=== PATIENT | female | born 1940 | race Caucasian/White ===

== ENCOUNTER 2018-04-06 11:34 | Outpatient (CLI) | payer MEDICARE | END 2018-04-06 23:59 | disposition home or self-care (01) | LOC: CT 11:34 | PROVIDERS: ATTEND Internal Medicine Interventional Cardiology | DX: K44.9 Diaphragmatic hernia without obstruction or gangrene (principal); E04.1 Nontoxic single thyroid nodule; I70.0 Atherosclerosis of aorta; I25.10 Atherosclerotic heart disease of native coronary artery without angina pectoris; M47.814 Spondylosis without myelopathy or radiculopathy, thoracic region; M19.012 Primary osteoarthritis, left shoulder; M19.011 Primary osteoarthritis, right shoulder | CPT/HCPCS: 71250-TC ==

== ENCOUNTER 2018-07-05 14:05 | Emergency (ER) | payer MEDICARE ==
[~2018-07-05] VITALS: Ht 172.7 cm; Wt 88.9 kg
[2018-07-05] MEDS ORDERED: IV NS 0.9% 1,000 ML BAG IV ONE (14:30)
[2018-07-05] MEDS ORDERED: MORPHINE SULFATE INJ 2 MG/ML DISP.SYRIN IV ONE (14:30)
[2018-07-05] MEDS ORDERED: ONDANSETRON HCL/PF 4 MG/2 ML VIAL IVP ONE (14:30)
--- NOTE | 2018-07-05 14:30 | NUR ---
patient presented to the ER c/o abd pain and back pain sent by PMD. On room air, breathing evenly and unlabored. Connected to the monitor and pulse ox. Kept comfortable, will continue to monitor accordingly.
[2018-07-05] MEDS ORDERED: MORPHINE SULFATE INJ 4 MG/ML DISP.SYRIN ONE (14:37)
[2018-07-05] MEDS ORDERED: ONDANSETRON HCL/PF 4 MG/2 ML VIAL ONE (14:37)
[2018-07-05 14:41] LABS: BASOPHILS % (AUTO) 0.4 % (0.0-2.0); EOSINOPHILS % (AUTO) 1.7 % (0.0-6.0); HEMATOCRIT 30 % (33-45); HEMOGLOBIN 10.1 g/dL (11.5-14.8); LYMPHOCYTES # (AUTO) 0.4 /CMM (0.8-4.8); LYMPHOCYTES % (AUTO) 9.1 % (20.0-44.0); MEAN CORPUSCULAR HGB CONC 33 g/dl (31.0-36.0); MEAN CORPUSCULAR VOLUME 94 fL (82-100); MONOCYTES # (AUTO) 0.3 /CMM (0.1-1.30); MONOCYTES % (AUTO) 6.9 % (2.0-12.0); NEUTROPHILS # (AUTO) 3.2 /CMM (1.8-8.9); NEUTROPHILS % (AUTO) 81.9 % (43.0-81.0); PLATELET COUNT (AUTO) 244 /CMM (150-450); RED BLOOD CELL COUNT(AUTO) 3.21 MIL/uL (4.0-5.2); WHITE BLOOD COUNT (AUTO) 3.9 K/uL (4.3-11.0)
[2018-07-05 14:51] LABS: CALCIUM, SERUM 9.1 mg/dL (8.5-10.1); CARBON DIOXIDE 27 mmol/L (21-32); CHLORIDE 99 mmol/L (98-107); CREATININE 1.3 mg/dL (0.6-1.3); GLUCOSE 143 mg/dL (74-106); POTASSIUM 5.6 mmol/L (3.5-5.1); SODIUM SERUM 132 mmol/L (136-145); UREA NITROGEN, BLOOD 41 mg/dL (7-18)
[2018-07-05 14:56] LABS: ALANINE AMINOTRANSFERASE 32 U/L (12-78); ALBUMIN 3.7 g/dL (3.4-5.0); ALKALINE PHOSPHATASE 125 U/L (46-116); ASPARTATE AMINOTRANSFERASE 26 U/L (15-37); BILIRUBIN,DIRECT 0.1 mg/dL (0.0-0.2); BILIRUBIN,TOTAL 0.4 mg/dL (0.2-1.0); LIPASE 73 U/L (73-393); TOTAL PROTEIN, SERUM 9.1 g/dL (6.4-8.2)
[2018-07-05 16:06] LABS: BILIRUBIN,URINE Negative (NEGATIVE); BLOOD, URINE Negative Ery/uL (NEGATIVE); COLOR,URINE Yellow (YELLOW); KETONES,URINE Trace (NEGATIVE); LEUKOCYTE ESTERASE ,URINE Small (NEGATIVE); NITRITE, URINE Positive (NEGATIVE); PROTEIN,URINE 30 mg/dl (NEGATIVE); UGLUCOSE Negative (NEGATIVE); UROBILINOGEN,URINE 0.2 EU/dL (0.2)
[2018-07-05 16:19] LABS: APPEARANCE,URINE HAZY (CLEAR); RBC,URINE 0-2 /HPF (0-2)
[2018-07-05 16:20] LABS: BACTERIA,URINE Moderate /HPF (None Seen); SQUAMOUS EPITHELIAL CELL,UR Few /HPF (None Seen); WBC,URINE 21-50 /HPF (0-3)
[2018-07-05] MEDS ORDERED: CIPROFLOXACIN HCL 250 MG TABLET PO ONE (16:30)
[2018-07-05] MEDS ORDERED: CIPROFLOXACIN HCL 500 MG TABLET ONE (16:44)
[2018-07-05 17:11] VITALS: BP 135/88
--- NOTE | 2018-07-05 17:12 | NUR ---
Patient discharged to home in stable condition. Written and verbal after care instructions given. Patient verbalizes understanding of instruction.IV removed. Catheter intact and site benign. Pressure and 4x4 applied to site. No bleeding noted.
--- NOTE | 2018-07-08 12:46 | NUR ---
CALL BACK FROM Araceli GARCIA, UTI SX IMPROVED AND CIPRO PRESCRIBED APROPRIATE BASED ON C/S UA
== END 2018-07-05 17:12 | disposition home or self-care (01) ==
LOC: ER 14:09
DX: N39.0 Urinary tract infection, site not specified (principal); M54.5 Low back pain; E87.1 Hypo-osmolality and hyponatremia; E87.5 Hyperkalemia; G89.29 Other chronic pain; E11.9 Type 2 diabetes mellitus without complications; Z96.651 Presence of right artificial knee joint; Z95.4 Presence of other heart-valve replacement; Z60.2 Problems related to living alone
CPT/HCPCS: 36415; 74176; 80048; 80076; 81001; 83690; 84484; 85025; 85730; 87077; 87086; 87186; 96374; 96375; 99284; J2270; J2405; J7030; 81000-TC

== ENCOUNTER 2018-10-14 14:08 | Emergency (ER) | payer MEDICARE ==
[~2018-10-14] VITALS: Ht 165.1 cm; Wt 64.4 kg
--- NOTE | 2018-10-14 14:40 | NUR ---
PT BIB SELF SENT BY DR. NASSAR FOR EVALUATION OF R L Q ABD PAIN. PT IS AAOX3, NOT IN RESPIRATORY DISTRESS, HOOKED TO MONITOR, KEPT RESTED AND COMFORTABLE, WILL CONTINUE TO MONITOR.
--- NOTE | 2018-10-14 14:49 | NUR ---
IV LINE ESTABLISHED, BLOOD DRAWNED AND SENT TO LAB.
--- NOTE | 2018-10-14 14:55 | NUR ---
SEEN AND EXMAINED BY .
[2018-10-14] MEDS ORDERED: IV NS 0.9% 500 ML BAG IV ONE (15:00)
[2018-10-14 15:02] LABS: BASOPHILS % (AUTO) 0.5 % (0.0-2.0); HEMATOCRIT 31 % (33-45); HEMOGLOBIN 10.1 g/dL (11.5-14.8); LYMPHOCYTES # (AUTO) 0.9 /CMM (0.8-4.8); LYMPHOCYTES % (AUTO) 20.3 % (20.0-44.0); MEAN CORPUSCULAR HGB CONC 33 g/dl (31.0-36.0); MEAN CORPUSCULAR VOLUME 96 fL (82-100); MONOCYTES # (AUTO) 0.3 /CMM (0.1-1.30); MONOCYTES % (AUTO) 7.4 % (2.0-12.0); NEUTROPHILS % (AUTO) 67.8 % (43.0-81.0); PLATELET COUNT (AUTO) 229 /CMM (150-450); RED BLOOD CELL COUNT(AUTO) 3.17 MIL/uL (4.0-5.2); WHITE BLOOD COUNT (AUTO) 4.5 K/uL (4.3-11.0)
[2018-10-14 15:04] LABS: CALCIUM, SERUM 8.9 mg/dL (8.5-10.1); CARBON DIOXIDE 23 mmol/L (21-32); CHLORIDE 101 mmol/L (98-107); CREATININE 1.3 mg/dL (0.6-1.3); GLUCOSE 159 mg/dL (74-106); SODIUM SERUM 134 mmol/L (136-145); UREA NITROGEN, BLOOD 30 mg/dL (7-18)
[2018-10-14 15:10] LABS: ALANINE AMINOTRANSFERASE 21 U/L (12-78); ALBUMIN 3.7 g/dL (3.4-5.0); ALKALINE PHOSPHATASE 95 U/L (46-116); ASPARTATE AMINOTRANSFERASE 18 U/L (15-37); BILIRUBIN,DIRECT 0.1 mg/dL (0.0-0.2); BILIRUBIN,TOTAL 0.2 mg/dL (0.2-1.0); LIPASE 82 U/L (73-393); TOTAL PROTEIN, SERUM 8.9 g/dL (6.4-8.2)
--- NOTE | 2018-10-14 15:34 | NUR ---
URINE SPECIMEN COLLECTED AND SENT TO LAB.
[2018-10-14] MEDS ORDERED: FERR325T23 PO (15:39)
[2018-10-14] MEDS ORDERED: FURO20TA4 PO (15:39)
[2018-10-14] MEDS ORDERED: ASPI-1169 PO (15:39)
[2018-10-14] MEDS ORDERED: SERT100T12 PO (15:39)
[2018-10-14] MEDS ORDERED: METF-442 PO (15:39)
[2018-10-14] MEDS ORDERED: OXYC-121 PO (15:39)
[2018-10-14] MEDS ORDERED: CARV3.122 PO (15:39)
[2018-10-14] MEDS ORDERED: LOSA50TA39 PO (15:39)
[2018-10-14] MEDS ORDERED: ATOR10TA PO (15:39)
[2018-10-14] MEDS ORDERED: RANI150T8 PO (15:39)
[2018-10-14] MEDS ORDERED: MULT-1200 PO (15:39)
[2018-10-14] MEDS ORDERED: MORPHINE SULFATE INJ 2 MG/ML DISP.SYRIN ONE (15:50)
[2018-10-14] MEDS ORDERED: ONDANSETRON HCL/PF 4 MG/2 ML VIAL ONE (15:50)
--- NOTE | 2018-10-14 15:54 | NUR ---
PT IS WHEELED TO CT SCAN VIA [facility]
[2018-10-14] MEDS ORDERED: ONDANSETRON HCL/PF 4 MG/2 ML VIAL IVP ONE (16:00)
[2018-10-14] MEDS ORDERED: MORPHINE SULFATE INJ 2 MG/ML DISP.SYRIN IV ONE (16:00)
[2018-10-14 16:03] LABS: APPEARANCE,URINE CLOUDY (CLEAR); BILIRUBIN,URINE NEGATIVE (NEGATIVE); BLOOD, URINE 2+ Ery/uL (NEGATIVE); COLOR,URINE YELLOW (YELLOW); KETONES,URINE NEGATIVE (NEGATIVE); LEUKOCYTE ESTERASE ,URINE 3+ (NEGATIVE); NITRITE, URINE POSITIVE (NEGATIVE); PH,URINE 5.5 (5.0-8.0); PROTEIN,URINE TRACE mg/dl (NEGATIVE); UGLUCOSE NEGATIVE (NEGATIVE); UROBILINOGEN,URINE 0.2 EU/dL (0.2)
[2018-10-14] MEDS ORDERED: IOHEXOL-300 100 ML VIAL IV ONE (16:04)
[2018-10-14] MEDS ORDERED: IV NS 0.9% 250 ML IV ONE (16:04)
[2018-10-14] MEDS ORDERED: CT SWABBABLE VALVE TRANS SET 1 EA INFUS.SET MC ONE (16:04)
[2018-10-14 16:12] LABS: BACTERIA,URINE 1+ /HPF (None Seen); RBC,URINE 21-50 /HPF (0-2); SQUAMOUS EPITHELIAL CELL,UR Few /HPF (None Seen); WBC,URINE TOO NUMEROUS TO COUN /HPF (0-3)
[2018-10-14] MEDS ORDERED: CEFTRIAXONE 1GM BAG (ER ONLY) 1 GM/50 ML PIGGYBACK IV ONE (16:30)
[2018-10-14] MEDS ORDERED: CEFTRIAXONE 1GM BAG (ER ONLY) 50 ML IV ONE (16:31)
--- NOTE | 2018-10-14 17:49 | NUR ---
IV removed. Catheter intact and site benign. Pressure and 4x4 applied to site. No bleeding noted. Patient discharged to home in stable condition. Written and verbal after care instructions given. Patient verbalizes understanding of instruction.
[2018-10-14 17:50] VITALS: BP 118/74
== END 2018-10-14 17:52 | disposition home or self-care (01) ==
LOC: ER 14:09
DX: N39.0 Urinary tract infection, site not specified (principal); E11.9 Type 2 diabetes mellitus without complications; Z98.890 Other specified postprocedural states; Z90.49 Acquired absence of other specified parts of digestive tract; Z95.818 Presence of other cardiac implants and grafts; Z60.2 Problems related to living alone; Z79.82 Long term (current) use of aspirin; Z79.84 Long term (current) use of oral hypoglycemic drugs; Z79.899 Other long term (current) drug therapy
CPT/HCPCS: 36415; 74177; 80048; 80076; 81001; 83690; 85025; 87077; 87086; 87186; 96365; 96375; 99284; J0696; J2270; J2405; J7040; J7050; Q9967; 81000-TC

== ENCOUNTER 2019-03-15 14:19 | Inpatient (IN) | payer MEDICARE ==
[~2019-03-15] VITALS: Ht 172.7 cm; Wt 88.5 kg
[~2019-03-15 14:19] MED LIST: ASPI-1169 PO; ATOR10TA PO; CARV3.122 PO; FERR325T23 PO; FURO20TA4 PO; LOSA50TA39 PO; METF-442 PO; MULT-1200 PO; OXYC-121 PO; RANI150T8 PO; SERT100T12 PO
[2019-03-15] MEDS ORDERED: IPRATROPIUM NEB FS 0.5 MG/2.5 ML AMPUL.NEB ONE (15:28)
[2019-03-15] MEDS ORDERED: ALBUTEROL FS 2.5 MG/3 ML VIAL.NEB ONE (15:28)
[2019-03-15] MEDS ORDERED: IPRATROPIUM NEB FS 0.5 MG/2.5 ML AMPUL.NEB NEB ONE (15:30)
[2019-03-15] MEDS ORDERED: ALBUTEROL FS 2.5 MG/3 ML VIAL.NEB NEB ONE (15:30)
[2019-03-15 15:48] LABS: BASOPHILS % (AUTO) 0.3 % (0.0-2.0); EOSINOPHILS % (AUTO) 0.1 % (0.0-6.0); HEMATOCRIT 31 % (33-45); HEMOGLOBIN 10.1 g/dL (11.5-14.8); LYMPHOCYTES # (AUTO) 0.2 /CMM (0.8-4.8); LYMPHOCYTES % (AUTO) 16.2 % (20.0-44.0); MEAN CORPUSCULAR HGB CONC 33 g/dl (31.0-36.0); MEAN CORPUSCULAR VOLUME 93 fL (82-100); MONOCYTES # (AUTO) 0.1 /CMM (0.1-1.30); MONOCYTES % (AUTO) 4.2 % (2.0-12.0); NEUTROPHILS % (AUTO) 79.2 % (43.0-81.0); PLATELET COUNT (AUTO) 118 /CMM (150-450); RED BLOOD CELL COUNT(AUTO) 3.33 MIL/uL (4.0-5.2)
[2019-03-15 15:50] LABS: WHITE BLOOD COUNT (AUTO) 1.3 K/uL (4.3-11.0)
[2019-03-15 15:59] LABS: CALCIUM, SERUM 8.6 mg/dL (8.5-10.1); CARBON DIOXIDE 23 mmol/L (21-32); CHLORIDE 95 mmol/L (98-107); CREATININE 2.3 mg/dL (0.6-1.3); GLUCOSE 153 mg/dL (74-106); SODIUM SERUM 130 mmol/L (136-145); UREA NITROGEN, BLOOD 56 mg/dL (7-18)
[2019-03-15] MEDS ORDERED: IV NS 0.9% 1,000 ML BAG IV ONE (16:00)
[2019-03-15 16:04] LABS: ALANINE AMINOTRANSFERASE 32 U/L (12-78); ALBUMIN 3.2 g/dL (3.4-5.0); ALKALINE PHOSPHATASE 77 U/L (46-116); ASPARTATE AMINOTRANSFERASE 37 U/L (15-37); BILIRUBIN,DIRECT 0.1 mg/dL (0.0-0.2); BILIRUBIN,TOTAL 0.3 mg/dL (0.2-1.0); TOTAL PROTEIN, SERUM 8.5 g/dL (6.4-8.2)
[2019-03-15 16:21] LABS: APPEARANCE,URINE Clear (CLEAR); BILIRUBIN,URINE Negative (NEGATIVE); BLOOD, URINE Negative Ery/uL (NEGATIVE); COLOR,URINE Yellow (YELLOW); KETONES,URINE Negative (NEGATIVE); LEUKOCYTE ESTERASE ,URINE Negative (NEGATIVE); NITRITE, URINE Negative (NEGATIVE); PROTEIN,URINE 100 mg/dl (NEGATIVE); UGLUCOSE Negative (NEGATIVE); UROBILINOGEN,URINE 0.2 EU/dL (0.2)
[2019-03-15] MEDS ORDERED: POLY15DR40 EACHEYE (16:27)
[2019-03-15] MEDS ORDERED: VANCOMYCIN 1 GM in IV D5W 250 ML IV ONE (16:30)
[2019-03-15] MEDS ORDERED: MEROPENEM 1,000 MG in IV NS 0.9% 100 ML IV ONE (16:30)
[2019-03-15 16:54] LABS: BAND % (MANUAL) 20 % (0.0-5.0); LYMPHOCYTES % (MANUAL) 20 % (16-48); MONOCYTES % (MANUAL) 6 % (0-11.0); NEUTROPHILS % (MANUAL) 54 (42-76)
[2019-03-15 16:56] LABS: BACTERIA,URINE Few /HPF (None Seen); COARSE GRANULAR CASTS,URINE Moderate /LPF (None Seen); RBC,URINE 0-2 /HPF (0-2); SQUAMOUS EPITHELIAL CELL,UR Moderate /HPF (None Seen); URINE AMORPHOUS URATE Moderate /HPF (None Seen); WBC,URINE 0-2 /HPF (0-3)
[2019-03-15 16:58] LABS: ABG BASE EXCESS -6.9 mmol/L; ABG OXYGEN SATURATION 90.8 % (92.0-98.5); ABG PCO2 36.1 mmHg (35.0-45.0); ABG PH 7.325 (7.350-7.450); ABG PO2 67.4 mmHg (75.0-100.0); AaDO2 205.2 mmHg; COHb 0.6 % (0.5-1.5); MetHb 0.3 % (0.0-1.5); SITE, ABG Right Radial; VENT MODE, BG NASAL CANNULA
[2019-03-15] MEDS ORDERED: ASPIRIN 81 MG TAB.CHEW PO ONE (17:00)
--- NOTE | 2019-03-15 17:00 | NUR ---
PANEL ON-CALL PAGED
[2019-03-15] MEDS ORDERED: ASPIRIN 81 MG TAB.CHEW ONE (17:08)
--- NOTE | 2019-03-15 17:45 | NUR ---
ROOM 107, BED READY AT 1800HOURS
--- NOTE | 2019-03-15 18:10 | NUR ---
report given to maday cherry for jarred pt will be transported to 1st floor
[2019-03-15 18:29] LABS: CALCIUM, SERUM 7.3 mg/dL (8.5-10.1); CARBON DIOXIDE 21 mmol/L (21-32); CHLORIDE 98 mmol/L (98-107); CREATININE 2.3 mg/dL (0.6-1.3); GLUCOSE 181 mg/dL (74-106); MAGNESIUM 1.7 mg/dL (1.8-2.4); PHOSPHORUS 4.1 mg/dL (2.5-4.9); POTASSIUM 3.9 mmol/L (3.5-5.1); SODIUM SERUM 131 mmol/L (136-145); UREA NITROGEN, BLOOD 52 mg/dL (7-18)
[2019-03-15] MEDS ORDERED: MAG HYDROX/AL HYDROX/SIMETH 30 ML UDC PO PRN (18:30)
[2019-03-15] MEDS ORDERED: ALBUTEROL FS 2.5 MG/0.5 ML VIAL.NEB NEB PRN (18:30)
[2019-03-15] MEDS ORDERED: POLYVINYL ALCOHOL 15 ML BOTTLE OP PRN (18:30)
[2019-03-15] MEDS ORDERED: Z GUARD REMEDY 2 OZ OINT TP PRN (18:30)
[2019-03-15] MEDS ORDERED: DEXTROSE 50%-WATER 50 ML DISP.SYRIN IV PRN (18:30)
[2019-03-15] MEDS ORDERED: ONDANSETRON HCL/PF 4 MG/2 ML VIAL IVP PRN (18:30)
[2019-03-15] MEDS ORDERED: MAGNESIUM HYDROXIDE 30 ML UDC PO PRN (18:30)
[2019-03-15] MEDS ORDERED: oxyCODONE/APAP (5/325 MG) 1 UDTAB TABLET PO PRN (18:30)
[2019-03-15 18:46] LABS: BASOPHILS % (AUTO) 0.2 % (0.0-2.0); EOSINOPHILS % (AUTO) 0.1 % (0.0-6.0); HEMATOCRIT 29 % (33-45); HEMOGLOBIN 9.6 g/dL (11.5-14.8); LYMPHOCYTES # (AUTO) 0.1 /CMM (0.8-4.8); LYMPHOCYTES % (AUTO) 14.6 % (20.0-44.0); MEAN CORPUSCULAR HGB CONC 33 g/dl (31.0-36.0); MEAN CORPUSCULAR VOLUME 93 fL (82-100); MONOCYTES % (AUTO) 3.9 % (2.0-12.0); NEUTROPHILS # (AUTO) 0.8 /CMM (1.8-8.9); NEUTROPHILS % (AUTO) 81.2 % (43.0-81.0); PLATELET COUNT (AUTO) 114 /CMM (150-450); RED BLOOD CELL COUNT(AUTO) 3.07 MIL/uL (4.0-5.2)
[2019-03-15 18:52] VITALS: BP 130/66
--- NOTE | 2019-03-15 18:54 | NUR ---
patient received from er awake alert,vss ,kept comfortable,endorsed to kira cherry for continuity of care and admission.
--- NOTE | 2019-03-15 19:00 | NUR ---
RN OPENING NOTES: PATIENT IN BED, AWAKE, AND VERBALLY RESPONSIVE. AAOX4. NO RESPIRATORY DISTRESS. NO C/O PAIN AT THIS TIME. (L) AC G20 INTACT, PATENT, AND FLUSHING WELL. ON DIRECTOR PAID MEDIA, SR WITH PVCs. SAFETY PRECAUTIONS IMPLEMENTED. BED LOCKED, ALARM ON, AND IN LOWEST POSITION. CALL LIGHT PLACED WITHIN REACH. WILL CONT. TO MONITOR FOR CHANGES.
[2019-03-15] MEDS: IV NS 0.9% 1,000 ML IV SCH (19:51)
[2019-03-15 20:00] VITALS: BP 95/55
[2019-03-15] MEDS: PIPERACILLIN /TAZOBACTAM 3.375 G in IV D5W 100 ML IV SCH (20:58)
[2019-03-15] MEDS: HYDROCODONE/APAP 5/325MG 1 EACH TABLET PO PRN (20:59)
[2019-03-15] MEDS: BLOOD SUGAR DIAGNOSTIC 1 EACH STRIP VI SCH (21:39)
[2019-03-15] MEDS: INSULIN REGULAR, HUMAN 100 UNIT/ML 3 ML VIAL SQ PRN (21:42)
--- NOTE | 2019-03-15 22:30 | NUR ---
RN NOTE: JACLYN MUNIZ NP. PATIENT WISHES TO BE FULL CODE. MAGNESIUM LEVEL 1.7. AQUATIC INSTRUCTOR MADE AWARE. PER AQUATIC INSTRUCTOR, REPLACE MAGNESIUM TOMORROW MORNING IN AM SHIFT. ALSO NOTIFIED THAT PATIENT NOTED WITH PRODUCTIVE COUGH. NEW ORDER FOR ROBITUSSIN PRN RECEIVED. PATIENT IN STABLE CONDITION AT THIS TIME. NO CONGESTION OR SOB. WILL CONT. TO MONITOR.
[2019-03-16] VITALS: BP 103/55
[2019-03-16] MEDS: GUAIFENESIN/D-METHORPHAN HB 5 ML UDC PO PRN ×2 (00:49→16:57)
--- NOTE | 2019-03-16 02:15 | NUR ---
RN NOTE: PATIENT C/O SOB AND DIFFICULTY BREATHING. ON O2 AT 2LPM VIA NC. O2 SAT 86-88%. TITRATED UP TO 3LPM VIA NC. NOTED EFFECTIVE. O2 SAT IMPROVED TO 90-92%. RT AT BEDSIDE. WILL CONT. TO MONITOR FOR CHANGES.
--- NOTE | 2019-03-16 02:25 | NUR ---
RN NOTE: SPOKE WITH CRISTY AP OPERATOR WITH NEW ORDER FOR BREATHING TX ATC. NOTED AND CARRIED OUT. RT MADE AWARE.
[2019-03-16] MEDS ORDERED: ALBUTEROL FS 2.5 MG/0.5 ML VIAL.NEB NEB SCH (03:00)
[2019-03-16] MEDS ORDERED: IPRATROPIUM NEB FS 0.5 MG/2.5 ML AMPUL.NEB NEB SCH (03:00)
[2019-03-16] MEDS: ALBUTEROL FS 2.5 MG/0.5 ML VIAL.NEB NEB SCH ×6 (03:58→23:30)
[2019-03-16] MEDS: IPRATROPIUM NEB FS 0.5 MG/2.5 ML AMPUL.NEB NEB SCH ×6 (03:58→23:30)
[2019-03-16 04:00] VITALS: BP 117/86
[2019-03-16] MEDS: PIPERACILLIN /TAZOBACTAM 3.375 G in IV D5W 100 ML IV SCH ×3 (04:47→20:30)
[2019-03-16] MEDS: HYDROCODONE/APAP 5/325MG 1 EACH TABLET PO PRN ×3 (04:56→09:48)
--- NOTE | 2019-03-16 07:00 | NUR ---
RN CLOSING NOTES: PATIENT IN BED, AWAKE, AND VERBALLY RESPONSIVE. NO RESPIRATORY DISTRESS. REMAINS ON O2 AT 5 LPM VIA NC, TOLERATING WELL. O2 SAT 90-93%. CRISTY VICTOR MADE AWARE. ON NEUTROPENIC PRECAUTION. SAFETY PRECAUTIONS HAVE BEEN IMPLEMENTED. BED LOCKED, ALARM ON, AND IN LOWEST POSITION. CALL LIGHT PLACED WITHIN REACH. ENDORSED TO AM SHIFT NURSE FOR CONTINUITY OF CARE. Addendum: 03/16/19 at 0729 by MICKIE EISENBERG RN MAGNESIUM LEVEL AND LAB RESULTS ENDORSED TO AM SHIFT.
--- NOTE | 2019-03-16 07:40 | NUR ---
ELEVATOR SERVICEMAN NOTES RECEIVED PATIENT IN BED A/OX4 AWAKE. ON 5 L O2 92%, SINUS RHYTHM 74. DENIES ANY PAIN. CALL LIGHT WITHIN REACH, BED ALARM ON, BED AT THE LOWEST POSITION LOCKED, WILL CONTINUE TO MONITOR PATIENT.
[2019-03-16] MEDS: BLOOD SUGAR DIAGNOSTIC 1 EACH STRIP VI SCH ×4 (07:49→22:03)
[2019-03-16 08:00] VITALS: BP 93/46
--- NOTE | 2019-03-16 08:21 | NUR ---
RAIL FILLER NOTES PATIENT`S BLOOD GLUCOSE LEVEL 129 MG/DL NO INSULIN GIVEN PER SLIDING SCALE.
[2019-03-16] MEDS: SERTRALINE HCL 50 MG TABLET PO SCH ×2 (08:37→16:57)
[2019-03-16] MEDS: ASPIRIN 81 MG TAB.CHEW PO SCH (08:37)
[2019-03-16 08:38] LABS: BASOPHILS % (AUTO) 0.1 % (0.0-2.0); HEMATOCRIT 28 % (33-45); LYMPHOCYTES # (AUTO) 0.2 /CMM (0.8-4.8); LYMPHOCYTES % (AUTO) 12.7 % (20.0-44.0); MEAN CORPUSCULAR HGB CONC 32 g/dl (31.0-36.0); MEAN CORPUSCULAR VOLUME 93 fL (82-100); MONOCYTES # (AUTO) 0.1 /CMM (0.1-1.30); MONOCYTES % (AUTO) 2.7 % (2.0-12.0); NEUTROPHILS # (AUTO) 1.6 /CMM (1.8-8.9); NEUTROPHILS % (AUTO) 84.5 % (43.0-81.0); PLATELET COUNT (AUTO) 110 /CMM (150-450)
[2019-03-16] MEDS: IV NS 0.9% 1,000 ML IV SCH ×2 (08:38→20:31)
[2019-03-16 08:41] LABS: WHITE BLOOD COUNT (AUTO) 1.9 K/uL (4.3-11.0)
[2019-03-16 08:47] LABS: CARBON DIOXIDE 20 mmol/L (21-32); CHLORIDE 96 mmol/L (98-107); CREATININE 2.9 mg/dL (0.6-1.3); GLUCOSE 136 mg/dL (74-106); MAGNESIUM 1.7 mg/dL (1.8-2.4); PHOSPHORUS 4.5 mg/dL (2.5-4.9); POTASSIUM 4.8 mmol/L (3.5-5.1); SODIUM SERUM 128 mmol/L (136-145); UREA NITROGEN, BLOOD 59 mg/dL (7-18)
[2019-03-16 09:02] LABS: BAND % (MANUAL) 17 % (0.0-5.0); LYMPHOCYTES % (MANUAL) 10 % (16-48); MONOCYTES % (MANUAL) 8 % (0-11.0); NEUTROPHILS % (MANUAL) 65 (42-76)
--- NOTE | 2019-03-16 09:09 | NUR ---
SPLITTER MACHINE NOTES CRITICAL LAB VALUE WBC 1.[address] BHUMI MD AWARE.
[2019-03-16 12:00] VITALS: BP 121/52
[2019-03-16] MEDS: INSULIN REGULAR, HUMAN 100 UNIT/ML 3 ML VIAL SQ PRN ×2 (12:38→18:09)
--- NOTE | 2019-03-16 12:48 | NUR ---
QUALITY HEAD NOTES RECEIVED A CALL FROM [facility] FOR GRAM POSITIVE COCCYX IN CHAINS
[2019-03-16] MEDS ORDERED: FEE PK DOSING 1 MIN EA MC ONE (15:20)
[2019-03-16 16:00] VITALS: BP 121/52
--- NOTE | 2019-03-16 19:10 | NUR ---
KJ RN OPENING NOTE RECEIVED PATIENT IN BED RESTRING WITH HOB ELEVATED. FAMILY AT BEDSIDE AT THIS TIME. IN NOT APPARENT DISTRESS NOTED. ON O2 5 L VIA NC. A&O X4. ABLE TO MAKE NEEDS KNOWN. WILL CONTINUE TO MONITOR.
[2019-03-16 20:00] VITALS: BP 123/56
--- NOTE | 2019-03-16 22:54 | NUR ---
Met with patient, she is alert and pleasant. States she lives locally with her son and daughter in law in the first floor apartment. States she ambulates with a walker around household and utilize wheelchair for community mobility. Available DME: walker and wheelchair. [facility] but she cannot recall the name of the agency. Her pcx is Dr. Juan Jimenez in [place]. She plan to return home with family providing ride. Addendum: 03/16/19 at 2255 by JONI LUONG RN Amended: Links added.
[2019-03-17] VITALS: BP 100/54
[2019-03-17] MEDS: ALBUTEROL FS 2.5 MG/0.5 ML VIAL.NEB NEB SCH ×6 (03:08→23:30)
[2019-03-17] MEDS: IPRATROPIUM NEB FS 0.5 MG/2.5 ML AMPUL.NEB NEB SCH ×6 (03:09→23:30)
[2019-03-17 04:00] VITALS: BP 124/48
[2019-03-17] MEDS ORDERED: VANCOMYCIN 1 GM in IV D5W 250 ML IV SCH (05:00)
[2019-03-17] MEDS: PIPERACILLIN /TAZOBACTAM 3.375 G in IV D5W 100 ML IV SCH ×3 (05:34→21:32)
[2019-03-17 06:30] LABS: BASOPHILS % (AUTO) 0.1 % (0.0-2.0); HEMATOCRIT 29 % (33-45); HEMOGLOBIN 9.3 g/dL (11.5-14.8); LYMPHOCYTES # (AUTO) 0.5 /CMM (0.8-4.8); LYMPHOCYTES % (AUTO) 9.2 % (20.0-44.0); MEAN CORPUSCULAR HGB CONC 33 g/dl (31.0-36.0); MEAN CORPUSCULAR VOLUME 93 fL (82-100); MONOCYTES # (AUTO) 0.2 /CMM (0.1-1.30); MONOCYTES % (AUTO) 2.8 % (2.0-12.0); NEUTROPHILS # (AUTO) 4.7 /CMM (1.8-8.9); NEUTROPHILS % (AUTO) 87.9 % (43.0-81.0); PLATELET COUNT (AUTO) 136 /CMM (150-450); RED BLOOD CELL COUNT(AUTO) 3.07 MIL/uL (4.0-5.2); WHITE BLOOD COUNT (AUTO) 5.4 K/uL (4.3-11.0)
[2019-03-17 06:35] LABS: ALANINE AMINOTRANSFERASE 28 U/L (12-78); ALBUMIN 2.4 g/dL (3.4-5.0); ALKALINE PHOSPHATASE 57 U/L (46-116); ASPARTATE AMINOTRANSFERASE 39 U/L (15-37); BILIRUBIN,TOTAL 0.4 mg/dL (0.2-1.0); CARBON DIOXIDE 20 mmol/L (21-32); CHLORIDE 95 mmol/L (98-107); CREATINE KINASE, TOTAL 97 U/L (26-192); CREATININE 3.9 mg/dL (0.6-1.3); GLUCOSE 104 mg/dL (74-106); MAGNESIUM 1.8 mg/dL (1.8-2.4); PHOSPHORUS 4.2 mg/dL (2.5-4.9); SODIUM SERUM 128 mmol/L (136-145); UREA NITROGEN, BLOOD 72 mg/dL (7-18)
--- NOTE | 2019-03-17 06:56 | NUR ---
RN CLOSING NOTE PATIENT IS IN BED RESTING WITH HOB ELEVATED. A&O X4. BREATHING IS EVEN AND NON LABORED. NO SOB NOTED. ON O2 5 L VIA NC AND TOLERATED WELL. ALL DUE MEDS GIVEN AND TOLERATED WELL. IV ATB ZOZYN ON AND RUNNING AT THIS TIME. PATIENT IS KEPT CLEAN, DRY, AND COMFORTABLE. CALL LIGHT IS WITHIN EASY REACH. WILL CONTINUE TO MONITOR.
--- NOTE | 2019-03-17 07:15 | NUR ---
FLY TIER NOTES PATIENT A/OX4 IN BED, DENIES PAIN. ON 75 ML/H NS. NO SOB OR DISCOMFORT NOTED AT THIS TIME.CALL LIGHT WITHIN REACH BED AT THE LOWEST POSITION LOCKED.
[2019-03-17] MEDS: BLOOD SUGAR DIAGNOSTIC 1 EACH STRIP VI SCH ×4 (07:43→21:38)
[2019-03-17] MEDS: INSULIN REGULAR, HUMAN 100 UNIT/ML 3 ML VIAL SQ PRN ×2 (07:51→18:34)
[2019-03-17 08:00] VITALS: BP 126/55
[2019-03-17] MEDS: SERTRALINE HCL 50 MG TABLET PO SCH ×2 (09:06→17:28)
[2019-03-17] MEDS: ASPIRIN 81 MG TAB.CHEW PO SCH (09:06)
--- NOTE | 2019-03-17 12:23 | NUR ---
AEROSPACE ENGINEER OFFICER ARMAMENT NOTES BLOOD GLUCOSE LEVEL 125 AND NO INSULIN ADMINISTRATED PER SLIDING SCALE.
--- NOTE | 2019-03-17 15:27 | NUR ---
RN OPENING NOTES PT WAS ENDORSED TO ME BY RN MARGUERITE. RECEIVED PATIENT IN BED,WITH DAUGHTER ON BEDSIDE. VERBALLY RESPONSIVE AND ABLE TO MAKE NEEDS KNOWN. DENIES ANY PAIN OR DISCOMFORT AT THE MOMENT. NO SOB NOTED. WITH RUNNING NS @75ML/HR. NO SIGNS OF INFILTRATION. BED IN LOWEST POSITION , LOCKED. CALL LIGHT WITHIN REACH. WILL CONTINUE TO MONITOR.
--- NOTE | 2019-03-17 15:28 | NUR ---
REPORT GIVEN TO DANISHA RN FOR CARE.
[2019-03-17 16:00] VITALS: BP 123/65
--- NOTE | 2019-03-17 18:11 | NUR ---
RN CLOSING NOTES PATIENT IN BED, A/O X4 VERBALLY RESPONSIVE AND ABLE TO MAKE NEEDS KNOWN.FAMILY AT BEDSIDE. DENIES ANY PAIN OR DISCOMFORT. ALL NEEDS MET. BED ON LOWEST POSITION AND LOCKED. CALL LIGHT WITHIN REACH. ENDORSED TO PM RN FOR THE MIKI.
--- NOTE | 2019-03-17 19:30 | NUR ---
TARGET WORKER stated she didn't urinate today, Bladder scan shows 118ml at this time. patient wearing a diaper
[2019-03-17] MEDS: ZOLPIDEM TARTRATE 5 MG TABLET PO PRN (21:46)
[2019-03-17] MEDS: GUAIFENESIN/D-METHORPHAN HB 5 ML UDC PO PRN (21:47)
[2019-03-18] VITALS (7 sets, daily range): BP systolic 93–140; BP diastolic 54–76
[2019-03-18] MEDS: ALBUTEROL FS 2.5 MG/0.5 ML VIAL.NEB NEB SCH ×6 (03:09→23:38)
[2019-03-18] MEDS: IPRATROPIUM NEB FS 0.5 MG/2.5 ML AMPUL.NEB NEB SCH ×6 (03:09→23:38)
[2019-03-18] MEDS: PIPERACILLIN /TAZOBACTAM 3.375 G in IV D5W 100 ML IV SCH ×3 (05:05→20:59)
--- NOTE | 2019-03-18 05:48 | NUR ---
ENDING NOTES: C/O sob AT times. 02 is at 5 liters and sats 94 -97%. She has a nonproducyive cough, which was relieved with the ordered rubitussin cough syrup. Ambien given and was effective. Resp even and unlabored. AUTOMATIC CHIEF stated she had not voided all day...bladder scan showed 118 ml in the bladder no distention palpable. noted on the computer salesperson retail shows bedpan given X3 and voided. At the end of my shift bladder scan again used and showed 128 ml urine in the bladder no distention palpable computer I/O shows bedpain X! voided X!.
[2019-03-18 06:13] LABS: BASOPHILS % (AUTO) 0.2 % (0.0-2.0); HEMATOCRIT 29 % (33-45); HEMOGLOBIN 9.3 g/dL (11.5-14.8); LYMPHOCYTES # (AUTO) 0.3 /CMM (0.8-4.8); LYMPHOCYTES % (AUTO) 3.8 % (20.0-44.0); MEAN CORPUSCULAR HGB CONC 32 g/dl (31.0-36.0); MEAN CORPUSCULAR VOLUME 94 fL (82-100); MONOCYTES # (AUTO) 0.2 /CMM (0.1-1.30); MONOCYTES % (AUTO) 2.9 % (2.0-12.0); NEUTROPHILS # (AUTO) 7.9 /CMM (1.8-8.9); NEUTROPHILS % (AUTO) 93.1 % (43.0-81.0); PLATELET COUNT (AUTO) 137 /CMM (150-450); RED BLOOD CELL COUNT(AUTO) 3.06 MIL/uL (4.0-5.2); WHITE BLOOD COUNT (AUTO) 8.5 K/uL (4.3-11.0)
[2019-03-18 06:31] LABS: CALCIUM, SERUM 7.2 mg/dL (8.5-10.1); CARBON DIOXIDE 16 mmol/L (21-32); CHLORIDE 92 mmol/L (98-107); GLUCOSE 120 mg/dL (74-106); POTASSIUM 5.7 mmol/L (3.5-5.1); SODIUM SERUM 125 mmol/L (136-145)
[2019-03-18 06:42] LABS: UREA NITROGEN, BLOOD 84 mg/dL (7-18)
--- NOTE | 2019-03-18 07:45 | NUR ---
RN OPENING NOTES RECEIVED PT IN BED. ASLEEP BUT OPEN EYES WHEN APPROACHED NO SOB NOTED AT THE MOMENT. IV ACCESS ON LAC #20, INTACT, PATENT AND FLUSHED WELL WITH 250 ML OF NS, WITH ON GOING ZOSYN @25ML/HR . NO SIGNS OF INFILTRATION NOTED. BED IN LOWEST POSITION AND LOCKED. CALL LIGHT WITHIN REACH. WILL CONTINUE TO MONITOR
[2019-03-18] MEDS: BLOOD SUGAR DIAGNOSTIC 1 EACH STRIP VI SCH ×4 (08:10→21:04)
[2019-03-18] MEDS: ASPIRIN 81 MG TAB.CHEW PO SCH (09:26)
[2019-03-18] MEDS: SERTRALINE HCL 50 MG TABLET PO SCH ×2 (09:26→17:00)
[2019-03-18 10:14] LABS: BAND % (MANUAL) 1 % (0.0-5.0); LYMPHOCYTES % (MANUAL) 4 % (16-48); MONOCYTES % (MANUAL) 2 % (0-11.0); NEUTROPHILS % (MANUAL) 93 (42-76)
[2019-03-18] MEDS ORDERED: BUMETANIDE INJ 0.25 MG/ML VIAL IV ONE (11:30)
[2019-03-18] MEDS ORDERED: SODIUM POLYSTYRENE SULF. PWD 15 GM UDC PO ONE (12:00)
--- NOTE | 2019-03-18 12:45 | NUR ---
RN NOTES SODIUM POLYSTYRENE SULFONATE 15GM ADMINISTERED PER ORDER.
[2019-03-18] MEDS: IV NS 0.9% 1,000 ML IV PRN (12:59)
--- NOTE | 2019-03-18 17:00 | NUR ---
RN NOTES SPOKE WITH DR BAEZ , NEEDED MEDICAL RECORDS FROM DR PENNY IN [facility]. FAXED THE AUTHORIZATION FORM TO [facility] MEDICAL RECORDS. PLEASE FOLLOW UP. SHE ALSO DISCUSSED ALL THE PLAN OF CARE TOGETHER WITH THE SON AND DAUGHTER IN [place].
--- NOTE | 2019-03-18 17:54 | NUR ---
RN NOTES NOTIFIED DR TRIPATHI THAT PATIENT BEEN SO SLEEPY THE WHOLE DAY , NOTIFIED DR. TRIPATHI ABOUT THE SCHEDULE ZOLOFT. HOLD PER ORDER.
[2019-03-18] MEDS: INSULIN REGULAR, HUMAN 100 UNIT/ML 3 ML VIAL SQ PRN (19:05)
--- NOTE | 2019-03-18 19:15 | NUR ---
DEPUTY CORONER OPENING NOTES Received patient A/O x4, awake on high almanzar's position on bed. On O2 inhalation via NC @ 5LPM, with minimal SOB noted, saturating well 98%. With N/V noted, with minimal food intake noted. Administered Zofran as ordered, family inquiries answered with satisfaction. Informed patient and family to monitor patient closely and MD will be notified for worsening condition. Family verbalized understanding. Kept on bed clean, dry and comfortable. On fall and aspiration precautions. Call light within easy reach. Will continue to monitor accordingly.
--- NOTE | 2019-03-18 19:36 | NUR ---
RN CLOSING NOTES PATIENT IN BED WITH FAMILY ON BEDSIDE. VERBALLY RESPONSIVE AND ABLE TO MAKE NEEDS KNOWN. DENIES ANY PAIN. VOMITED X 1 UPON ENDORSING TO PM RN. FAMILY. VITALS SIGNS STABLE THROUGH OUT THE DAY. IN NO ACUTE DISTRESS. IV ACCESS INTACT ON R HAND #22. NO SIGNS OF INFILTRATION. ALL NEEDS MET. BED ON LOWEST POSITION, CALL LIGHT WITHIN REACH. ENDORSED TO PM RN FOR MIKI.
--- NOTE | 2019-03-18 21:04 | NUR ---
NEWSPAPER LIBRARY MANAGER NOTES Patient noted with N/V unrelieved by Doretha. BS -173. Held Insulin R at this time due to NPO status. Will continue to monitor accordingly.
[2019-03-18] MEDS: *INSULIN REGULAR(HUMULIN R)HUM 100 UNIT/ML VIAL SQ PRN (23:23)
[2019-03-19] VITALS (59 sets, daily range): BP systolic 57–150; BP diastolic 34–120
[2019-03-19] MEDS: ZOLPIDEM TARTRATE 5 MG TABLET PO PRN (00:59)
[2019-03-19] MEDS: GUAIFENESIN/D-METHORPHAN HB 5 ML UDC PO PRN (00:59)
--- NOTE | 2019-03-19 01:54 | NUR ---
RESEARCH MICROBIOLOGIST NOTES 0125 - RN paged for patient vomiting. Checked patient right away, patient unresponsive and very pale. Suctioned immediately, saturation 97%, BP 101/48mmHg. BS 152. Noted coffee ground minimal amount. Rapid response called right away. Rapid response team at bedside. 0130 - BP 140/80mmHg, saturation 100% on face mask, labored breathing noted, facial color improved but still with pallor noted. Per team patient needs intubation. 0134 - ER MD at bedside to intubate the patient. order caller MD notified with order okay to transfer to ICU. Report given to mailhouse operator. 0140 - ET tube in place. Saturation 99%. 0145 - Transferred to ICU accompanied by the rapid response team. Family notified, spoke to son Orestes. Inquiries answered with satisfaction, information to contact ICU provided.
[2019-03-19] MEDS: IV NS 0.9% 1,000 ML IV PRN ×2 (02:07→12:10)
--- NOTE | 2019-03-19 02:57 | NUR ---
TRESTLEMAN PT WAS TRANSFERRED FROM ROOM 107-1 AFTER DIETETIC INTERN. ON THE FLOOR PT GOT N/V WITH COFFEE GROUND CONTENT, ASPIRATED, GOT LETHARGIC & WENT TO RESPIRATORY DISTRESS. PT WAS INTUBATED @ THE BEDSIDE AND BROUGHT TO ICU. ETT 7.5 CM, 24 CM FROM THE LIPS. AC 16, TV-550, FIO2-100%, PEEP-5. PT IS LETHARGIC, RESPONSE TO PAINFUL STIMULI ONLY. VSS, AFEBRILE, SCOPE-A.FIB. F/C WAS INSERTED. COMPLETE BATH GIVEN, ALL LINEN CHANGED. ABG IN 1 HOUR AFTER INTUBATION. IV NS @ 100 ML/HR.
--- NOTE | 2019-03-19 03:06 | NUR ---
RT PATIENT WAS RECEIVED INTUBATED ON 7.5 ETT TUBE AT 25CM LIP ON VENT SUPPORT WITH NOTED VENT SETTINGS. ALARMS ARE ON AND AUDIBLE.ETT TUBE IS SECURED AND PATENT . WILL CONTINUE TO MONITOR. Addendum: 03/19/19 at 0310 by TAVO DIETZ RT Amended: Links added.
[2019-03-19 03:20] LABS: ABG BASE EXCESS -19.2 mmol/L; ABG OXYGEN SATURATION 99.2 % (92.0-98.5); ABG PCO2 55.4 mmHg (35.0-45.0); ABG PO2 330.8 mmHg (75.0-100.0); AaDO2 326.8 mmHg; COHb 0.3 % (0.5-1.5); MetHb 0.7 % (0.0-1.5); O2Hb 98.2 % (94.0-97.0); PEEP,BG 5 cm H2O; SITE, ABG Right Brachial; VT, ABG 550 mL
[2019-03-19] MEDS: IPRATROPIUM NEB FS 0.5 MG/2.5 ML AMPUL.NEB NEB SCH ×6 (03:48→23:31)
[2019-03-19] MEDS: ALBUTEROL FS 2.5 MG/0.5 ML VIAL.NEB NEB SCH ×6 (03:48→23:31)
[2019-03-19] MEDS ORDERED: SODIUM BICARBONATE SYR 50 MEQ/50 ML DISP.SYRIN IV ONE ×2 (04:30→10:30)
[2019-03-19] MEDS ORDERED: VANCOMYCIN 1 GM in IV D5W 250 ML IV SCH (05:00)
[2019-03-19] MEDS: PIPERACILLIN /TAZOBACTAM 3.375 G in IV D5W 100 ML IV SCH ×3 (05:04→21:16)
--- NOTE | 2019-03-19 06:39 | NUR ---
CRM COORDINATOR PT REMAINS OBTUNDED, RESPONSE TO PAINFUL STIMULI ONLY. VENT SETTING CHANGED AFTER ABG WAS DONE IN 1 HOUR AFTER INTUBATION./ AC-22, TV 550, FIO2-40%, PEEP+5/. ALSO PT WAS GIVEN 1 AMP. OF SODIUM BICARB. IVP. ACCORDING KAYLEIGH MUNIZ ORDER. URINE OUTPUT IS NOT ADEQUATE. PT NEED PICC-LINE INSERTION.
--- NOTE | 2019-03-19 07:30 | NUR ---
OPERATOR/ASSISTANT FOREMAN INITIAL NOTE RECEIVED PATIENT OBTUNDED, RESPONDS TO PAINFUL STIMULI. NO DISTRESS NOTED. WITH ETT 7.5CM/26CM AT THE LIP. WITH VENT SETTINGS AC 22, TV 550, FIO2 40%, PEEP 5. ON TELE MONITOR SINUS TACH. PROPOFOL ON STANDBY. SKIN COOL AND DRY TO TOUCH. NOTED WITH LOW TEMPRATURE, KAROLINA HUGGER ORDERED. OGT PLACED, PATENT AND INTACT, PLACEMENT VERIFIED WITH TWO NURSES. PLACED ON LOW INTERMITTENT SUCTION AT THIS TIME WITH COFFEE GROUND COLOR OUTPUT. F/C PATENT AND INTACT, DRAINING BY GRAVITY. HOB ELEVATED. SIDE RAILS UP AND LOCKED. BILATERAL WRIST RESTRAINTS IN PLACE FOR SAFETY. BED KEPT AT LOWEST POSITION. WILL CONTINUE TO MONITOR.
[2019-03-19 07:56] LABS: CALCIUM, SERUM 7.2 mg/dL (8.5-10.1); CHLORIDE 89 mmol/L (98-107); CREATININE 5.9 mg/dL (0.6-1.3); GLUCOSE 214 mg/dL (74-106); SODIUM SERUM 124 mmol/L (136-145)
[2019-03-19] MEDS: BLOOD SUGAR DIAGNOSTIC 1 EACH STRIP VI SCH ×4 (08:01→21:16)
[2019-03-19] MEDS: INSULIN REGULAR, HUMAN 100 UNIT/ML 3 ML VIAL SQ PRN ×2 (08:06→11:58)
[2019-03-19 08:11] LABS: CARBON DIOXIDE 10 mmol/L (21-32); POTASSIUM 6.4 mmol/L (3.5-5.1); UREA NITROGEN, BLOOD 95 mg/dL (7-18)
[2019-03-19] MEDS: SERTRALINE HCL 50 MG TABLET PO SCH ×2 (08:14→17:00)
[2019-03-19] MEDS: ASPIRIN 81 MG TAB.CHEW PO SCH (08:14)
--- NOTE | 2019-03-19 08:36 | NUR ---
ALTERATION TAILOR NOTE RECEIVED TELEPHONE CONSENT FOR HD TREATMENT AND CATHETER PLACEMENT FROM [facility].
[2019-03-19 09:10] LABS: ABG BASE EXCESS -15.5 mmol/L; ABG OXYGEN SATURATION 95.4 % (92.0-98.5); ABG PCO2 37.7 mmHg (35.0-45.0); ABG PH 7.139 (7.350-7.450); ABG PO2 85.8 mmHg (75.0-100.0); COHb 0.2 % (0.5-1.5); MetHb 0.1 % (0.0-1.5); O2Hb 95.1 % (94.0-97.0); PEEP,BG 5 cm H2O; SITE, ABG Right Radial; VT, ABG 550 mL
--- NOTE | 2019-03-19 09:10 | NUR ---
DIRECTOR AND PROFESSOR NOTE RELAYED TO DR KAMARA ABG RESULT WITH ORDERS TO CHANGE TV TO 600 AND RATE 28 AND GIVE 1 AMP BICARB. INFORMED REGARDING LOW BP, WITH ORDERS TO REMOVE PEEP AND GIVE 250ML BOLUS. NOTED WILL CARRY OUT. WILL CONTINUE TO MONITOR.
[2019-03-19 09:14] LABS: BASOPHILS % (AUTO) 0.1 % (0.0-2.0); HEMATOCRIT 30 % (33-45); HEMOGLOBIN 9.4 g/dL (11.5-14.8); LYMPHOCYTES # (AUTO) 0.3 /CMM (0.8-4.8); LYMPHOCYTES % (AUTO) 2.6 % (20.0-44.0); MEAN CORPUSCULAR HGB CONC 32 g/dl (31.0-36.0); MEAN CORPUSCULAR VOLUME 96 fL (82-100); MONOCYTES # (AUTO) 0.3 /CMM (0.1-1.30); MONOCYTES % (AUTO) 3.3 % (2.0-12.0); PLATELET COUNT (AUTO) 118 /CMM (150-450); RED BLOOD CELL COUNT(AUTO) 3.08 MIL/uL (4.0-5.2); WHITE BLOOD COUNT (AUTO) 9.6 K/uL (4.3-11.0)
[2019-03-19] MEDS: PROPOFOL 100 ML IV PRN ×2 (09:27→21:15)
[2019-03-19] MEDS ORDERED: IV NS 0.9% 250 ML IV ONE (09:30)
--- NOTE | 2019-03-19 10:31 | NUR ---
HEMODIALYSIS CATHETER INSERTION Pipe Welder: [facility] Sameer Yancey NP Straight trialysis catheter 13f 24 cm Patient has order to insert HD catheter. Informed consent is signed and in chart. Insertion site determined to be right femoral vein. Patient was prepped using sterile technique with chlorhexidine. Patient was covered with a sterile drape and I donned a sterile gown. The insertion site was anesthetized with 1% lidocaine. Needle inserted under ultrasound guidance. Guidewire inserted through needle and needle removed. Small rodney made at insertion site of approximately 2 mm. Dilator inserted over guidewire then removed. Catheter inserted fully over guidewire. Guidewire removed. Blood return at all three ports. Caps placed on each port. Catheter secured with 2 sutures. Biopatch placed and covered with tegaderm. No s/s of complication. Tolerated well with minimal blood loss. Ebl 3ml.
--- NOTE | 2019-03-19 10:34 | NUR ---
CLEANER INDUSTRIAL NOTE INFORMED DR KAMARA REGARDING BP TRENDING DOWN, WITH ORDERS TO START PATIENT ON LEVO. NOTED. PHARMACY AWARE
[2019-03-19] MEDS: NOREPINEPHRINE 8 MG in IV D5W 500 ML IV PRN ×2 (10:41→22:39)
[2019-03-19 11:01] LABS: BAND % (MANUAL) 6 % (0.0-5.0); EOSINOPHILS % (MANUAL) 1 % (0-4); LYMPHOCYTES % (MANUAL) 2 % (16-48); MONOCYTES % (MANUAL) 3 % (0-11.0); NEUTROPHILS % (MANUAL) 88 (42-76)
[2019-03-19] MEDS ORDERED: ROCURONIUM BROMIDE 50 MG/5 ML IV ONE (11:26)
[2019-03-19] MEDS ORDERED: FEE EMEERGENCY 1 MIN EA MC ONE (11:26)
[2019-03-19] MEDS ORDERED: ETOMIDATE 2 MG/ML VIAL IV ONE (11:26)
--- NOTE | 2019-03-19 12:52 | NUR ---
CONTINUITY OF CARE ENDORSED TO NAZIA HARRIS
--- NOTE | 2019-03-19 16:06 | NUR ---
TAI CHI INSTRUCTOR NOTE RELAYED CORTISOL LEVEL 51.[address] KAMARA WITH NO NEW ORDERS
[2019-03-19] MEDS: PANTOPRAZOLE 40 MG VIAL IV SCH (17:30)
--- NOTE | 2019-03-19 18:11 | NUR ---
CATTLE SHIPPER NOTE INFORMED DR BAEZ PER LAB GUIAC RESULT WILL TAKE 5 DAYS TO BE RESULTED. STILL COLLECT SPECIMEN
--- NOTE | 2019-03-19 19:31 | NUR ---
SHIP YARD ELECTRICAL PERSON. INITIAL ASSESSMENT. RECEIVED THE PT REST ON THE BED. ORALLY INTUBATED. SEDATED WITH DIPRIVAN. ETT 7.5,LIP 26,AC 28,TV 600, FIO2 40%. SAT 99%. NO ACUTE DISTRESS NOTED. BARKER PEELER SHOWING BBB AND ST ELEVATED POTASSIUM IS HIGH. DIALYSIS ON. HOB ELEVATED. PT IS NPO. NGT LOW INTERMITTENT SUCTION. FC PATENT. ANDI SOFT WRIST RESTRAINT CHECKED AND RELEASED. NO INJURY OR REDNESS NOTED. IV RT AND LT HAND PERIPHERAL LINE. RT FEMORAL HD CATH WITH PICC TAIL. ANDI SOFT WRIST RESTRAINT CHECKED AND RELEASED. NO INJURY OR REDNESS NOTED. WILL CONTINUE TO MONITOR VITALS.
[2019-03-19 21:15] LABS: ABG BASE EXCESS -3.5 mmol/L; ABG OXYGEN SATURATION 76.3 % (92.0-98.5); ABG PCO2 28.6 mmHg (35.0-45.0); ABG PH 7.456 (7.350-7.450); ABG PO2 41.5 mmHg (75.0-100.0); AaDO2 210.8 mmHg; COHb 0.4 % (0.5-1.5); MetHb 0.7 % (0.0-1.5); O2Hb 75.5 % (94.0-97.0); PEEP,BG 0 cm H2O; SITE, ABG Right Radial; VT, ABG 600 mL
[2019-03-20] VITALS (48 sets, daily range): BP systolic 94–156; BP diastolic 37–72
[2019-03-20] MEDS: ACETAMINOPHEN 325 MG TABLET PO PRN (02:44)
[2019-03-20] MEDS: IV NS 0.9% 1,000 ML IV PRN ×3 (02:45→21:28)
[2019-03-20] MEDS: PROPOFOL 100 ML IV PRN ×3 (02:45→23:22)
[2019-03-20] MEDS: IPRATROPIUM NEB FS 0.5 MG/2.5 ML AMPUL.NEB NEB SCH ×6 (03:29→23:48)
[2019-03-20] MEDS: ALBUTEROL FS 2.5 MG/0.5 ML VIAL.NEB NEB SCH ×6 (03:29→23:48)
--- NOTE | 2019-03-20 03:35 | NUR ---
AADC PLANS STAFF OFFICER, AM CARE. ORAL ACRE, BED BATH GIVEN. LINEN CAHNGED. REMAINING SAME VENT SETTING TOLERATED WELL. SAT 100%. FINANCIAL CONTROLLER SHOWING MULTIPLE PVCS. AND BBB/ HOB ELEVATED. NGT LOW INTERMITTENT SUCTION. HOB ELEVATED. ANDI SOFT WRIST RESTRAINT CHECKED AND RELEASED. NO INJURY OR REDNESS NOTED. FC PATENT. RT UPPER ARM PICC LINE. IVF NS 100ML/H,DIPRIVAN 15MCG/KG/MIN,LEVOPHED 4MCG/MIN. TURN AND REPOSITION Q2H. WILL CONTINUE TO MONITOR VITALS.
[2019-03-20] MEDS: PIPERACILLIN /TAZOBACTAM 3.375 G in IV D5W 100 ML IV SCH ×3 (04:49→21:28)
[2019-03-20 04:57] LABS: BASOPHILS % (AUTO) 0.5 % (0.0-2.0); HEMATOCRIT 22 % (33-45); HEMOGLOBIN 7.5 g/dL (11.5-14.8); LYMPHOCYTES # (AUTO) 0.4 /CMM (0.8-4.8); MEAN CORPUSCULAR HGB CONC 34 g/dl (31.0-36.0); MEAN CORPUSCULAR VOLUME 91 fL (82-100); MONOCYTES # (AUTO) 0.3 /CMM (0.1-1.30); MONOCYTES % (AUTO) 4.3 % (2.0-12.0); NEUTROPHILS # (AUTO) 5.8 /CMM (1.8-8.9); NEUTROPHILS % (AUTO) 89.2 % (43.0-81.0); PLATELET COUNT (AUTO) 125 /CMM (150-450); RED BLOOD CELL COUNT(AUTO) 2.47 MIL/uL (4.0-5.2); WHITE BLOOD COUNT (AUTO) 6.5 K/uL (4.3-11.0)
[2019-03-20 05:58] LABS: CALCIUM, SERUM 7.5 mg/dL (8.5-10.1); CARBON DIOXIDE 18 mmol/L (21-32); CHLORIDE 98 mmol/L (98-107); CREATININE 4.6 mg/dL (0.6-1.3); GLUCOSE 178 mg/dL (74-106); POTASSIUM 3.6 mmol/L (3.5-5.1); SODIUM SERUM 135 mmol/L (136-145); UREA NITROGEN, BLOOD 64 mg/dL (7-18)
[2019-03-20 06:34] LABS: BAND % (MANUAL) 2 % (0.0-5.0); LYMPHOCYTES % (MANUAL) 4 % (16-48); METAMYELOCYTES % 1 % (0-0); MONOCYTES % (MANUAL) 6 % (0-11.0); MYELOCYTES % 1 % (0-0); NEUTROPHILS % (MANUAL) 86 (42-76)
--- NOTE | 2019-03-20 07:00 | NUR ---
RN INITIAL NOTE RECEIVED REPORT AT BEDSIDE. PATIENT OBTUNDED, RESPONDS TO PAINFUL STIMULI. NO SIGNS OF DISTRESS NOTED. WITH ETT 7.5CM/26CM AT THE LIP. ON TELE MONITOR, WITH LBBB, MULTIPLE PVCs AND PACs. ON DIPRIVAN 15 MCG. OGT PLACED, ON LIS WITH GREENISH BROWN COLOR. PATENT AND INTACT. F/C PATENT AND INTACT, DRAINING BY GRAVITY. HOB ELEVATED. SIDE RAILS ELEVATED AND LOCKED. BILATERAL WRIST RESTRAINTS IN PLACE FOR SAFETY. BED KEPT AT LOWEST POSITION. WILL CONTINUE TO MONITOR.
--- NOTE | 2019-03-20 07:30 | NUR ---
RN NOTE DR TRIPATHI AT BEDSIDEM, NNO AT THIS TIME
[2019-03-20] MEDS: BLOOD SUGAR DIAGNOSTIC 1 EACH STRIP VI SCH ×4 (07:39→21:28)
--- NOTE | 2019-03-20 08:00 | NUR ---
RN NOTE LEVOPHED STOPPED INFUSING. BP STABLE AT 129/81. WILL CONTINUE TO MONITOR
[2019-03-20 08:21] LABS: ABG OXYGEN SATURATION 98.9 % (92.0-98.5); ABG PCO2 25.2 mmHg (35.0-45.0); ABG PH 7.468 (7.350-7.450); ABG PO2 175.8 mmHg (75.0-100.0); AaDO2 296.2 mmHg; COHb 0.5 % (0.5-1.5); MetHb 0.3 % (0.0-1.5); O2Hb 98.1 % (94.0-97.0); SITE, ABG Left Radial; VENT MODE, BG AC 28 600 70% +0
[2019-03-20] MEDS: ASPIRIN 81 MG TAB.CHEW PO SCH (09:00)
[2019-03-20] MEDS: SERTRALINE HCL 50 MG TABLET PO SCH ×2 (09:00→17:00)
[2019-03-20 09:06] LABS: *SPE A/G RATIO 0.6 (0.7-1.7); *SPE ALBUMIN 2.5 g/dL (2.9-4.4); *SPE ALPHA-1-GLOBULIN 0.5 g/dL (0.0-0.4); *SPE BETA GLOBULIN 0.8 g/dL (0.7-1.3); *SPE M-SPIKE 1.5 g/dL (Not Observed); *SPEGAMMA GLOBULIN 1.7 g/dL (0.4-1.8)
--- NOTE | 2019-03-20 09:36 | NUR ---
RN NOTE PATIENT HAS SACRAL REDNESS. ROUNDER HAND RN TOOK A PICTURE AND PLACED IN CHART. ORDERED WOUND CONSULT AND WOUND CP FOR THE PATIENT
--- NOTE | 2019-03-20 10:51 | NUR ---
RN NOTE FAMILY AT BEDSIDE, UPDATED WITH THE PATIENT'S STATUS. TAMMY (SON), REQUESTED TO TALK TO DR TRIPATHI. PHONE NUMBER OF TAMMY WAS GIVEN TO . MD SAID HE WILL GET TO IT WHEN HE CAN.
[2019-03-20 12:06] LABS: BETA-2 MICROGLOBULIN, SERUM 27.4 mg/L (0.6-2.4)
--- NOTE | 2019-03-20 13:30 | NUR ---
RN NOTE PATIENT WILL START DIALYSIS AT THIS TIME. PER HD NURSE, STOP ZOSYN FOR NOW
--- NOTE | 2019-03-20 15:00 | NUR ---
RN NOTE DIALYSIS DONE, 1L OUT
--- NOTE | 2019-03-20 16:55 | NUR ---
RN NOTE REQUEST FORM FOR MEDICAL RECORDS FROM [facility] FOR DR PENNY WAS FAXED OVER AGAIN TODAY. CALLED AND VERIFIED [facility] FOR THEIR FAX NUMBER.
[2019-03-20] MEDS: PANTOPRAZOLE 40 MG VIAL IV SCH (17:09)
--- NOTE | 2019-03-20 17:48 | NUR ---
RN NOTE PATIENT HAD A LARGE BLACK TARRY STOOL. WILL COLLECT AND SEND TO LAB FOR STOOL OB. MADE AWARE. ORDER CARRIED OUT
--- NOTE | 2019-03-20 18:52 | NUR ---
RN CLOSING NOTE PATIENT IN BED, SEDATED WITH PROPOFOL AT 20 MCG. HAS ETT 7.07/24 WITH VENT SETTINGS CHANGED PER DR KAMARA'S ORDER: AC 20 TV 550 FIO2 60% AND PEEP OF 0. HAS DOZIER CATH WITH CLEAR AND YELLOW URINE. X1 BM STOOL SAMPLE SENT TO LAB FOR OB. WOUND CONSULT PENDING. PATIENT ON LIS WITH 300 ML GASTRIC RESIDUAL. HAS A RIGHT UA PICC, RIGHT FEMORAL TRIPLE LUMEN, RIGHT HAND #22 AND LEFT FA #20. HAS NS AT 100 ML/HR. VSS THROUGHOUT THE SHIFT. ALL MEDS GIVEN. PATIENT HAD HD TODAY WITH 1L OUT. NO INSULIN COVERAGE BECAUSE PATIENT IS NPO. PATIENT HAS BILATERAL WRIST RESTRAINTS. BED LOCKED AND IN LOWEST POSITION. WILL ENDORSE TO NOC SHIFT
--- NOTE | 2019-03-20 19:16 | NUR ---
RN NOTE DR BAEZ AT BEDSIDE, PER DR BAEZ CHANGE PROTONIX TO BID. ORDER CARRIED OUT
--- NOTE | 2019-03-20 20:00 | NUR ---
RN NOTE PATIENT IN BED, SEDATED WITH PROPOFOL AT 20 MCG. HAS ETT 7.07/24 WITH VENT SETTINGS CHANGED PER MD ORDER. HAS DOZIER CATH IN PLACE . WOUND CONSULT PENDING. HAS A RIGHT UA PICC, RIGHT FEMORAL TRIPLE LUMEN, RIGHT HAND #22 AND LEFT FA #20. HAS NS AT 100 ML/HR. VSS THROUGHOUT THE SHIFT. PATIENT HAS BILATERAL WRIST RESTRAINTS. BED LOCKED AND IN LOWEST POSITION. WILL CONTINUE TO MONITOR PATIENT CLOSELY.
--- NOTE | 2019-03-20 20:55 | NUR ---
RECEIVED PT INTUBATED 7.5 ETT SECURED AT 25CM AT THE LIP. NO RESP DISTRESS NOTED. PT TOLERATING VENT SETTINGS. B/S COARSE BILAT. SX'D AND LAVAGED FOR MOD AMT OF THICK CROSS SECRETIONS. VENT ALARMS SET AND AUDIBLE. AMBU BAG AT BEDSIDE. ETT CUFF RESIDENT CARE DIRECTOR. CONTINUE [facility] VENT SUPPORT. Addendum: 03/20/19 at 2056 by JAE ROSE RT Amended: Links added.
[2019-03-20 21:10] LABS: OCCULT BLOOD STOOL POSITIVE (NEGATIVE)
[2019-03-20] MEDS: *INSULIN REGULAR(HUMULIN R)HUM 100 UNIT/ML VIAL SQ PRN (21:57)
[2019-03-21] VITALS (38 sets, daily range): BP systolic 94–157; BP diastolic 36–99
[2019-03-21] MEDS: ALBUTEROL FS 2.5 MG/0.5 ML VIAL.NEB NEB SCH ×6 (03:29→23:36)
[2019-03-21] MEDS: IPRATROPIUM NEB FS 0.5 MG/2.5 ML AMPUL.NEB NEB SCH ×6 (03:29→23:36)
[2019-03-21 04:51] LABS: BASOPHILS % (AUTO) 0.3 % (0.0-2.0); EOSINOPHILS % (AUTO) 0.1 % (0.0-6.0); LYMPHOCYTES # (AUTO) 0.3 /CMM (0.8-4.8); LYMPHOCYTES % (AUTO) 6.4 % (20.0-44.0); MEAN CORPUSCULAR HGB CONC 34 g/dl (31.0-36.0); MEAN CORPUSCULAR VOLUME 90 fL (82-100); MONOCYTES # (AUTO) 0.1 /CMM (0.1-1.30); MONOCYTES % (AUTO) 3.5 % (2.0-12.0); NEUTROPHILS # (AUTO) 3.6 /CMM (1.8-8.9); NEUTROPHILS % (AUTO) 89.7 % (43.0-81.0); PLATELET COUNT (AUTO) 87 /CMM (150-450)
[2019-03-21 04:59] LABS: CALCIUM, SERUM 7.5 mg/dL (8.5-10.1); CARBON DIOXIDE 26 mmol/L (21-32); CHLORIDE 102 mmol/L (98-107); CREATININE 4.1 mg/dL (0.6-1.3); GLUCOSE 143 mg/dL (74-106); POTASSIUM 3.3 mmol/L (3.5-5.1); SODIUM SERUM 138 mmol/L (136-145); UREA NITROGEN, BLOOD 46 mg/dL (7-18)
[2019-03-21 05:13] LABS: RED BLOOD CELL COUNT(AUTO) 1.98 MIL/uL (4.0-5.2)
[2019-03-21 05:15] LABS: HEMATOCRIT 18 % (33-45)
[2019-03-21 05:21] LABS: LYMPHOCYTES % (MANUAL) 5 % (16-48); MONOCYTES % (MANUAL) 4 % (0-11.0); NEUTROPHILS % (MANUAL) 91 (42-76)
[2019-03-21] MEDS: PIPERACILLIN /TAZOBACTAM 3.375 G in IV D5W 100 ML IV SCH ×3 (05:30→20:47)
[2019-03-21] MEDS: PROPOFOL 100 ML IV PRN ×2 (05:49→09:33)
--- NOTE | 2019-03-21 05:55 | NUR ---
RN NOTES RECEIVED CALL FROM LAB PATIENT'S HGB IS 6.0, PREETI UMNIZ NOTIFIED AND NEW TELEPHONE ORDER OF 1 UNIT PRBC TRANSFUSION IS IN PLACE. READ BACK AND VERIFICATION OF THE ORDER IS DONE. CALLED PATIENT'S SON TAMMY AND OBTAINED TELEPHONE CONSENT FOR BLOOD TRANSFUSION WITH 2ND RN NARA VERIFICATION. WILL CONTINUE TO MONITOR PATIENT CLOSELY.
--- NOTE | 2019-03-21 07:15 | NUR ---
RN INITIAL NOTES RECEIVED PT INTUBATED, SEDATED. NO RESPIRATORY DISTRESS NOTED. NO SOB NOTED. NO SIGNS OF PAIN NOTED. ON DIPRIVAN AT 20MCG/KG/MIN. WILL TITRATE ACCORDINGLY. OG IN PLACE, CONNECTED TO LOW INTERMITTENT SUCTION. JUS PICC IN PLACE. IVF INFUSING. RIGHT FEMORAL HD CATH IN PLACE. FC IN PLACE. NO OUTPUT NOTED. BLE ELEVATED. PT COMFORTABLE. FOR WEANING TRIALS TODAY. WILL MONITOR
--- NOTE | 2019-03-21 07:37 | NUR ---
RT RECEIVED PT ORALLY INTUBATED WITH 7.5 ETT MARKED @ 25 CM LIP, WITH NOTED SETTINGS. STONE PRODUCT FABRICATOR DONE AND ETT IS SECURE. VENT ALARMS CHECKED AND AUDIBLE. ANDI B/S WITH RHONCHI, SX WITH MOD THK BROWN TO CROSS SECRETIONS. VENT PLUGGED IN RED OUTLET. AMBU BAG NOTED HOB. BREATHING TX GIVEN AND NO ADV REACTION. PT TOLERATING SETTINGS WELL. NO SOB OR RESP DISTRESS NOTED. WILL CONTINUE TO MONITOR T/O SHIFT.
[2019-03-21] MEDS: BLOOD SUGAR DIAGNOSTIC 1 EACH STRIP VI SCH ×4 (07:41→22:44)
--- NOTE | 2019-03-21 07:49 | NUR ---
RT PATIENT ON SIMV 4 PS 15 PEEP +[address] KAMARA FOR WEANING TRIAL. PT OFF SEDATION. PT AWAKE AND ALERT FOLLOWING COMMANDS. RN AWARE. WILL MONITOR.
[2019-03-21] MEDS ORDERED: DC PROPOFOL WHEN EXTUBATED XX PRN (08:00)
[2019-03-21] MEDS: SERTRALINE HCL 50 MG TABLET PO SCH ×2 (08:52→17:00)
[2019-03-21] MEDS: PANTOPRAZOLE 40 MG VIAL IV SCH ×2 (08:55→17:17)
[2019-03-21 08:57] LABS: BASOPHILS % (AUTO) 0.4 % (0.0-2.0); EOSINOPHILS % (AUTO) 0.3 % (0.0-6.0); LYMPHOCYTES # (AUTO) 0.3 /CMM (0.8-4.8); LYMPHOCYTES % (AUTO) 6.5 % (20.0-44.0); MEAN CORPUSCULAR HGB CONC 33 g/dl (31.0-36.0); MEAN CORPUSCULAR VOLUME 89 fL (82-100); MONOCYTES # (AUTO) 0.2 /CMM (0.1-1.30); MONOCYTES % (AUTO) 3.3 % (2.0-12.0); NEUTROPHILS # (AUTO) 4.4 /CMM (1.8-8.9); NEUTROPHILS % (AUTO) 89.5 % (43.0-81.0); PLATELET COUNT (AUTO) 92 /CMM (150-450); RED BLOOD CELL COUNT(AUTO) 2.06 MIL/uL (4.0-5.2); WHITE BLOOD COUNT (AUTO) 4.9 K/uL (4.3-11.0)
[2019-03-21 09:01] LABS: ABG BASE EXCESS -2.3 mmol/L; ABG OXYGEN SATURATION 96.3 % (92.0-98.5); ABG PCO2 31.5 mmHg (35.0-45.0); ABG PH 7.447 (7.350-7.450); ABG PO2 93.8 mmHg (75.0-100.0); AaDO2 155.2 mmHg; MetHb 1.1 % (0.0-1.5); O2Hb 95.2 % (94.0-97.0); PEEP,BG 5 cm H2O; SITE, ABG Left Radial; VENT MODE, BG SIMV 4 PS15
[2019-03-21 09:06] LABS: HEMOGLOBIN 6.2 g/dL (11.5-14.8)
[2019-03-21 09:07] LABS: HEMATOCRIT 18 % (33-45)
--- NOTE | 2019-03-21 09:11 | NUR ---
WOUND CARE CONSULT: PT PRESENTS WITH BLANCHABLE REDNESS TO SACRAL AREA AND PERIANAL/GLUTEAL CREASE INCONTINENCE ASSOCIATED SKIN DAMAGE WITH SOME DISCOLORATION OF SKIN ON LEFT BUTTOCK. RECOMMENDATIONS MADE FOR SKIN PROTECTION AND CARE. DISCUSSED WITH NURSING STAFF. FIRST STEP LOW AIRLOSS MATTRESS ORDERED. WILL SEE PRN. WELDON IN AGREEMENT WITH PLAN OF CARE. CURRENT GIGI SCORE IS 12. Addendum: 03/21/19 at 0913 by MARCELA CHAMBERS WNDNU Amended: Links added.
--- NOTE | 2019-03-21 09:30 | NUR ---
RN NOTES 0845 SEEN AND EXAMINED BY DR KAMARA. PT OFF SEDATION. PT AWAKE, A/OX1, ABLE TO FOLLOW SIMPLE COMMANDS. AWARE OF LAB VALUES. PT HAS ORDER FOR BLOOD TRANSFUSION AND HEMODIALYSIS. 899 DR KAMARA AWARE OF ABG RESULT AND ORDER TO EXTUBATE PT. 929 DR KAMARA REASSESSED PT PRIOR TO EXTUBATION. PER MD, HOLD EXTUBATION. PUT PT BACK ON AC MODE. WILL DO HEMODIALYSIS AND BLOOD TRANSFUSION FIRST THEN WILL TRY WEANING TRAILS AGAIN. SON AT BEDSIDE AWARE. WILL CLOSELY MONITOR
--- NOTE | 2019-03-21 09:32 | NUR ---
RT 0850: ABG DONE PER ORDER. 09:PER DR KAMARA OK TO EXTUBATE. 929: PER DR KAMARA. EXTUBATE PT AFTER DIALYSIS AND BLOOD TRANSFUSION. PER PLACED BACK ON AC MODE. WILL CONTINUE TO MONITOR T/O SHIFT.
[2019-03-21] MEDS: IV NS 0.9% 1,000 ML IV PRN ×2 (09:33→20:47)
[2019-03-21 09:48] LABS: EOSINOPHILS % (MANUAL) 5 % (0-4); LYMPHOCYTES % (MANUAL) 10 % (16-48); MONOCYTES % (MANUAL) 4 % (0-11.0); NEUTROPHILS % (MANUAL) 81 (42-76)
--- NOTE | 2019-03-21 14:15 | NUR ---
RT PER DR KAMARA, TRY WEANING PT AGAIN AFTER DIALYSIS AND BLOOD TRANSFUSION. PLACED PT ON WEANING ORDERS PER MD. ALARMS CHECKED AND AUDIBLE. WILL MONITOR PATIENT. RN AWARE.
[2019-03-21 15:05] LABS: ABG BASE EXCESS 0.1 mmol/L; ABG OXYGEN SATURATION 95.8 % (92.0-98.5); ABG PCO2 33.2 mmHg (35.0-45.0); ABG PH 7.468 (7.350-7.450); ABG PO2 83.9 mmHg (75.0-100.0); AaDO2 163.1 mmHg; COHb 0.4 % (0.5-1.5); MetHb 0.3 % (0.0-1.5); O2Hb 95.1 % (94.0-97.0); PEEP,BG 5 cm H2O; SITE, ABG Right Radial; VENT MODE, BG SIMV PS 15; VT, ABG 550 mL
--- NOTE | 2019-03-21 15:24 | NUR ---
RT POST ABG ON SIMV MODE, PER DR KAMARA EXTUBATE PATIENT. PT EXTUBATED, NO STRIDOR NOTED. PT HAS STRONG COUGH, PLACED PT ON 4L NC. PT AWAKE AND ALERT ABLE TO FOLLOW COMMANDS POST EXTUBATION. WILL CONTINUE TO MONITOR. RN AND MD AWARE.
--- NOTE | 2019-03-21 15:25 | NUR ---
RN NOTE: Patient was seen by Dr. Turcios and he was ok for the patient to be extubated today. Anthony RT and Rob RT were at the bedside and extubated the patient. Patient tolerated it well. Patient's family was aware of the planned extubation at the bedside.
--- NOTE | 2019-03-21 18:47 | NUR ---
RN CLOSING NOTES PT A/OX1-2. ON 02 VIA NC. KEPT HOB ELEVATED. NO RESPIRATORY DISTRESS NOTED. DENIES ANY PAIN. HEMODIALYSIS DONE TODAY, REMOVED 2000ML. TOLERATED WELL. RECEIVED 2 UNITS PRBC WITH HD. NO REACTION NOTED. KEPT CLEAN AND DRY. REPOSITIONED Q2. KEPT BLE ELEVATED. ALL NEEDS ANTICIPATED AND MET. CALL LIGHT WITHIN REACH. WILL ENDORSE FOR CONTINUITY OF CARE
[2019-03-22] VITALS (17 sets, daily range): BP systolic 141–174; BP diastolic 68–100
[2019-03-22] MEDS: IPRATROPIUM NEB FS 0.5 MG/2.5 ML AMPUL.NEB NEB SCH ×5 (03:14→20:57)
[2019-03-22] MEDS: ALBUTEROL FS 2.5 MG/0.5 ML VIAL.NEB NEB SCH ×5 (03:14→20:57)
[2019-03-22] MEDS ORDERED: FENTANYL PF 100MCG/2ML AMPUL ONE (04:33)
[2019-03-22] MEDS: PIPERACILLIN /TAZOBACTAM 3.375 G in IV D5W 100 ML IV SCH ×2 (04:43→13:49)
[2019-03-22 04:47] LABS: BASOPHILS % (AUTO) 0.3 % (0.0-2.0); EOSINOPHILS % (AUTO) 0.1 % (0.0-6.0); HEMATOCRIT 25 % (33-45); HEMOGLOBIN 8.3 g/dL (11.5-14.8); LYMPHOCYTES # (AUTO) 0.2 /CMM (0.8-4.8); LYMPHOCYTES % (AUTO) 2.2 % (20.0-44.0); MEAN CORPUSCULAR HGB CONC 33 g/dl (31.0-36.0); MEAN CORPUSCULAR VOLUME 92 fL (82-100); MONOCYTES # (AUTO) 0.2 /CMM (0.1-1.30); MONOCYTES % (AUTO) 2.7 % (2.0-12.0); NEUTROPHILS # (AUTO) 6.4 /CMM (1.8-8.9); NEUTROPHILS % (AUTO) 94.7 % (43.0-81.0); PLATELET COUNT (AUTO) 87 /CMM (150-450); RED BLOOD CELL COUNT(AUTO) 2.72 MIL/uL (4.0-5.2); WHITE BLOOD COUNT (AUTO) 6.8 K/uL (4.3-11.0)
--- NOTE | 2019-03-22 05:00 | NUR ---
TAKEN FOR EGD PROCEDURE
[2019-03-22 05:10] LABS: CALCIUM, SERUM 8.7 mg/dL (8.5-10.1); CARBON DIOXIDE 22 mmol/L (21-32); CHLORIDE 103 mmol/L (98-107); CREATININE 3.5 mg/dL (0.6-1.3); GLUCOSE 159 mg/dL (74-106); POTASSIUM 3.6 mmol/L (3.5-5.1); SODIUM SERUM 140 mmol/L (136-145); UREA NITROGEN, BLOOD 33 mg/dL (7-18)
[2019-03-22 05:53] LABS: NEUTROPHILS % (MANUAL) 97 (42-76)
[2019-03-22 05:54] LABS: LYMPHOCYTES % (MANUAL) 2 % (16-48); MONOCYTES % (MANUAL) 1 % (0-11.0)
[2019-03-22] MEDS: IV NS 0.9% 1,000 ML IV PRN (07:05)
[2019-03-22 07:06] LABS: IMMUNOGLOBULIN A, SERUM 14 mg/dL (64-422); IMMUNOGLOBULIN G, SERUM 2051 mg/dL (700-1600); IMMUNOGLOBULIN M, SERUM 68 mg/dL (26-217)
--- NOTE | 2019-03-22 07:10 | NUR ---
RN INITIAL NOTES RECEIVED PT AWAKE, A/OX1-2. ON 02 VIA NC AT 3LPM. NO RESPIRATORY DISTRESS NOTED. NO SOB NOTED. DENIES ANY PAIN. JUS PICC IN PLACE. IVF INFUSING. HD CATH IN PLACE. FC IN PLACE. BLE ELEVATED. PT COMFORTABLE. WILL CONTINUE TO MONITOR
[2019-03-22] MEDS: BLOOD SUGAR DIAGNOSTIC 1 EACH STRIP VI SCH ×4 (07:45→21:30)
[2019-03-22] MEDS: PANTOPRAZOLE 40 MG VIAL IV SCH ×2 (08:16→16:43)
[2019-03-22] MEDS: SERTRALINE HCL 50 MG TABLET PO SCH ×2 (08:16→16:43)
[2019-03-22] MEDS: SUCRALFATE 1 G/10 ML UDC GT SCH ×4 (08:16→21:30)
--- NOTE | 2019-03-22 11:24 | NUR ---
RN NOTES REPORT GIVEN TO YUMIKO BELLA BEDSIDE. TOOK OVER PT'S CARE
--- NOTE | 2019-03-22 11:43 | NUR ---
ADMINISTRATION ASSISTANT NOTE RECEIVED PATENT IN BED AWAKE ALERT X1,, ON TELE MONITOR SR WITH BB, WITH DOZIER CATH TO GRAVITY, RT UPPER ARM PICC LINE IN PLACE, ON IVF ORDERED , BED IN LOWEST AND LOCKED POSITION, WILL CONT TO MONITOR
[2019-03-22] MEDS: ACETAMINOPHEN 325 MG TABLET PO PRN ×2 (11:54→21:50)
[2019-03-22] MEDS: INSULIN REGULAR, HUMAN 100 UNIT/ML 3 ML VIAL SQ PRN ×2 (12:04→17:27)
--- NOTE | 2019-03-22 13:30 | NUR ---
[facility] RN NOTE RECEIVED PATIENT FROM ICU ALERT AWAKE WITH CONFUSION , PLACED ON TELE MONITOR SR HR 105, FAMILY AT BEDSIDE, WITH DOZIER CATH TO GRAVITY WITH YELLOW COLOR URINE, ,BED IN LOWEST AND LOCKED POSITION . RT UPPER ARM PICC LINE IN PLACE ,ON IVF ORDERED ,BED IN LOWEST AND LOCKED POSITION , WILL CONT TO MONITOR, ON 2L NC, SAT 94%
--- NOTE | 2019-03-22 15:00 | NUR ---
[facility] RN NOTE FAMILY AT BEDSIDE ALL NEEDS ATTENDED ,TURN REPOSITION ,WILL MONITOR
[2019-03-22] MEDS: CEFTRIAXONE 1 G in IV D5W 50 ML IV SCH (18:09)
--- NOTE | 2019-03-22 18:30 | NUR ---
[facility] RN NOTE HAVING DINNER ,SON AT BEDSIDE ALL NEEDS ATTENDED ,DR BUENO AT BEDSIDE
--- NOTE | 2019-03-22 19:33 | NUR ---
RN NOTE DR. TRIPATHI WITH NEW ORDER TO DC IV FLUIDS. FAMILY NOTIFIED. ORDER NOTED AND CARRIED OUT.
--- NOTE | 2019-03-22 19:35 | NUR ---
RN OPENING NOTE RECEIVED PT IN BED IN PLASCENCIA'S POSITION. PT IS ALERT AND ORIENTED X 1. SON AT BEDSIDE. ON TELE MONITOR. RESPIRATIONS UNLABORED AT THIS TIME. CURRENTLY ON 2L OF O2 VIA NC AND TOLERATING WELL. NOTED WITH ANTERIOR WHEEZING THROUGHOUT. BREATHING TREATMENT TO BE GIVEN BY RT. DOZIER CATHETER PATENT AND IN PLACE. DRAINING SMALL AMOUNT OF CLEAR YELLOW URINE. IV FLUIDS RECENTLY DISCONTINUED PER DR. TRIPATHI. CALL LIGHT WITHIN REACH, SAFETY MEASURES IN PLACE. WILL MONITOR.
[2019-03-22] MEDS: *INSULIN REGULAR(HUMULIN R)HUM 100 UNIT/ML VIAL SQ PRN (21:31)
[2019-03-23] VITALS (16 sets, daily range): BP systolic 135–182; BP diastolic 62–132
[2019-03-23] MEDS: ALBUTEROL FS 2.5 MG/0.5 ML VIAL.NEB NEB SCH ×7 (00:05→23:27)
[2019-03-23] MEDS: IPRATROPIUM NEB FS 0.5 MG/2.5 ML AMPUL.NEB NEB SCH ×8 (00:05→23:30)
[2019-03-23] MEDS: HYDROCODONE/APAP 5/325MG 1 EACH TABLET PO PRN (04:06)
--- NOTE | 2019-03-23 05:21 | NUR ---
RN NOTE PT NOTED WITH ELEVATED HEART RATE 120-145. NOTIFIED DR. PEARSON WITH ORDER TO ADMINISTER METOPROLOL 50MG PO X 1. ORDER NOTED AND CARRIED OUT.
[2019-03-23] MEDS: METOPROLOL TARTRATE 50 MG TABLET PO SCH (05:39)
--- NOTE | 2019-03-23 06:39 | NUR ---
RN NOTE NOTED WITH IMPROVEMENT IN HEART RATE (94). BLOOD PRESSURE 122/81.
--- NOTE | 2019-03-23 07:15 | NUR ---
RN OPENING NOTES PT IS ASLEEP IN BED IN SEMI PLASCENCIA POSITION WITH NC ON 2 L O2. PT HAS EQUAL CHEST RISE AND FALL WITH NO OBVIOUS SIGNS OF SOB AND PAIN AT PRESENT MOMENT. PT IS IN BED WITH X3 SIDE RAILS UP IN LOWEST AND LOCKED POSITION WITH CALL LIGHT IN REACH WILL CONTINUE TO MONITOR.
--- NOTE | 2019-03-23 07:29 | NUR ---
RN CLOSING NOTE PT IN BED AWAKE IN SEMI PLASCENCIA'S POSITION. ALERT AND ORIENTED X 1-2. ON 2L OF O2 VIA NC. NO INDICATIONS OF ACUTE RESPIRATORY DISTRESS. NO INDICATIONS OF PAIN OR DISCOMFORT, DOZIER CATHETER IN PLACE. NO URINE OUTPUT NOTED AT THIS TIME. PT IS ANURIC. ON TUBE FEEDING AND TOLERATING WELL. LESS THAN 10ML OF GASTRIC RESIDUAL NOTED. CURRENTLY ON HEPARIN DRIP ORDERED. ALL NEEDS MET AND ATTENDED TO. CALL LIGHT WITHIN REACH, SAFETY MEASURES IN PLACE. BED IN LOW POSITION. ENDORSED TO MORNING RN FOR CONTINUATION OF CARE. Addendum: 03/23/19 at 0732 by TAMMY CRUZ RN RN NOTE (ENTERED INFORMATION FROM WRONG PT.) PT IN BED AWAKE IN SEMI PLASCENCIA'S POSITION. ALERT AND ORIENTED X 1-2. ON 2L OF O2 VIA NC. NO INDICATIONS OF ACUTE RESPIRATORY DISTRESS. NO INDICATIONS OF PAIN OR DISCOMFORT, DOZIER CATHETER IN PLACE. NO URINE OUTPUT NOTED AT THIS TIME. PT IS ANURIC. ALL NEEDS MET AND ATTENDED TO. CALL LIGHT WITHIN REACH, SAFETY MEASURES IN PLACE. BED IN LOW POSITION. ENDORSED TO MORNING RN FOR CONTINUATION OF CARE.
[2019-03-23] MEDS: BLOOD SUGAR DIAGNOSTIC 1 EACH STRIP VI SCH ×4 (08:06→22:05)
[2019-03-23] MEDS: SERTRALINE HCL 50 MG TABLET PO SCH ×2 (08:06→16:33)
[2019-03-23] MEDS: PANTOPRAZOLE 40 MG VIAL IV SCH ×2 (08:06→16:56)
[2019-03-23] MEDS: SUCRALFATE 1 G/10 ML UDC GT SCH ×4 (08:06→22:00)
[2019-03-23 08:37] LABS: BASOPHILS % (AUTO) 0.2 % (0.0-2.0); EOSINOPHILS % (AUTO) 0.1 % (0.0-6.0); HEMATOCRIT 26 % (33-45); HEMOGLOBIN 8.6 g/dL (11.5-14.8); LYMPHOCYTES # (AUTO) 0.2 /CMM (0.8-4.8); LYMPHOCYTES % (AUTO) 1.8 % (20.0-44.0); MEAN CORPUSCULAR HGB CONC 33 g/dl (31.0-36.0); MEAN CORPUSCULAR VOLUME 91 fL (82-100); MONOCYTES # (AUTO) 0.4 /CMM (0.1-1.30); MONOCYTES % (AUTO) 2.9 % (2.0-12.0); NEUTROPHILS # (AUTO) 12.4 /CMM (1.8-8.9); PLATELET COUNT (AUTO) 114 /CMM (150-450)
[2019-03-23 08:53] LABS: CALCIUM, SERUM 8.9 mg/dL (8.5-10.1); CARBON DIOXIDE 22 mmol/L (21-32); CHLORIDE 103 mmol/L (98-107); CREATININE 4.2 mg/dL (0.6-1.3); GLUCOSE 173 mg/dL (74-106); MAGNESIUM 2.1 mg/dL (1.8-2.4); POTASSIUM 4.1 mmol/L (3.5-5.1); SODIUM SERUM 139 mmol/L (136-145); UREA NITROGEN, BLOOD 30 mg/dL (7-18)
[2019-03-23] MEDS: GUAIFENESIN/D-METHORPHAN HB 5 ML UDC PO PRN (09:41)
--- NOTE | 2019-03-23 10:00 | NUR ---
PT RECEIVING DIALYSIS FOR FLUID OVERLOAD CONTROL.
[2019-03-23] MEDS: INSULIN REGULAR, HUMAN 100 UNIT/ML 3 ML VIAL SQ PRN ×2 (12:32→17:11)
[2019-03-23 13:30] LABS: ABG BASE EXCESS -7.8 mmol/L; ABG OXYGEN SATURATION 89.4 % (92.0-98.5); ABG PCO2 31.5 mmHg (35.0-45.0); ABG PH 7.348 (7.350-7.450); ABG PO2 61.9 mmHg (75.0-100.0); AaDO2 331.3 mmHg; COHb 0.8 % (0.5-1.5); MetHb 0.3 % (0.0-1.5); O2Hb 88.4 % (94.0-97.0); SITE, ABG Right Radial; VENT MODE, BG SIMPLE MASK
--- NOTE | 2019-03-23 14:10 | NUR ---
EMERGENCY ROOM TECHNICIAN NOTES RECEIVED PATIENT TRANSFER FROM [facility] TO ICU , DUE TO LOW O2 SAT , PT RESPONSIVE , LETHARGIC ABLE TO FOLLOW COMMANDS , ST 105 , ON NON REBREATHER MASK SPO2 OF 95-98% FC DRAINING VIA GRAVITY , JUS PICC LINE AND LFA # 20 PATENT AND INTACT , R FEMORAL HD CATH IN PLACE , ALL NEEDS ATTENDED , BED ON LOW AND LOCKED POSITION , SIDE RAILS X2 ,CALL LIGHT WITHIN REACH HOB @ 45 WILL CONTINUE TO MONITOR . RECEIVED BEDSIDE REPORT FROM DURAN FOR CONTINUITY OF CARE
--- NOTE | 2019-03-23 14:30 | NUR ---
LUMITE INJECTOR NOTES RT CHARLEEN AT BEDSIDE , PLACED PT ON HIGH FLOW NC @ 65% FIO2 @ 45LPM , SPO2 OF 100% , RR 22CPM , AOX1 ABLE TO FOLLOW COMMANDS , LETHARGIC , WILL CONTINUE TO MONITOR
--- NOTE | 2019-03-23 14:59 | NUR ---
REINFORCING STEEL WORKER WIRE MESH NOTES HIGH FLOW O2 AT 45LPM AT 45% FIO2 , TITRATED BY CHARLEEN RT , PT LETHARGIC , ABLE TO FOLLOW COMMANDS, RR 25 , SPO2 OF 100% WILL CONTINUE TO MONITOR
--- NOTE | 2019-03-23 15:43 | NUR ---
MATERIALS INTERN NOTES SEEN AND EVALUATED THE PT , PT IS MORE AWAKE , AOX1-2 , ON 45LPM AT 45% FIO2 , SPO2 OF 100% , VSS AFEBRILE , NOTIFIED PT HAS PRN PAIN MEDS , PER MD DARION MAYO AND PERCOCET , RESUME DIET VENUS AM
[2019-03-23] MEDS: CEFTRIAXONE 1 G in IV D5W 50 ML IV SCH (17:00)
--- NOTE | 2019-03-23 19:03 | NUR ---
DREDGE CAPTAIN NOTES PATIENT STABLE , , LETHARGIC ABLE TO FOLLOW COMMANDS , ST 107 , ON HIGH FLOW NC @ 45LPM / 45% FIO2 SPO2 OF 95-98% FC DRAINING VIA GRAVITY , JUS PICC LINE AND LFA # 20 PATENT AND INTACT , R FEMORAL HD CATH IN PLACE , ALL NEEDS ATTENDED , BED ON LOW AND LOCKED POSITION , SIDE RAILS X2 ,CALL LIGHT WITHIN REACH HOB @ 45 REPORT GIVEN TO VON FOR CONTINUITY OF CARE
[2019-03-23] MEDS: *INSULIN REGULAR(HUMULIN R)HUM 100 UNIT/ML VIAL SQ PRN (21:58)
--- NOTE | 2019-03-23 23:19 | NUR ---
CALLED ABOUT PT HR 120-130, AND SBP 180, ORDERS OBTAINED
[2019-03-23] MEDS: METOPROLOL TARTRATE INJ 5 MG/5 ML AMPUL IVP PRN (23:47)
[2019-03-24] VITALS (29 sets, daily range): BP systolic 129–192; BP diastolic 49–112
--- NOTE | 2019-03-24 | NUR ---
PT VERBALIZING THAT SHE DOESN'T WISH TO CONTNUE TO BE IN THE HOSPITAL, SHE WISHES TO GO HOME.
[2019-03-24] MEDS: IPRATROPIUM NEB FS 0.5 MG/2.5 ML AMPUL.NEB NEB SCH ×5 (03:09→19:30)
[2019-03-24] MEDS: ALBUTEROL FS 2.5 MG/0.5 ML VIAL.NEB NEB SCH ×5 (03:09→19:30)
--- NOTE | 2019-03-24 03:10 | NUR ---
REFUSING BREATHING TX
[2019-03-24 04:56] LABS: BASOPHILS % (AUTO) 0.2 % (0.0-2.0); HEMATOCRIT 26 % (33-45); HEMOGLOBIN 8.6 g/dL (11.5-14.8); LYMPHOCYTES # (AUTO) 0.4 /CMM (0.8-4.8); LYMPHOCYTES % (AUTO) 3.2 % (20.0-44.0); MEAN CORPUSCULAR HGB CONC 33 g/dl (31.0-36.0); MEAN CORPUSCULAR VOLUME 92 fL (82-100); MONOCYTES # (AUTO) 0.3 /CMM (0.1-1.30); MONOCYTES % (AUTO) 2.7 % (2.0-12.0); NEUTROPHILS # (AUTO) 11.4 /CMM (1.8-8.9); NEUTROPHILS % (AUTO) 93.9 % (43.0-81.0); PLATELET COUNT (AUTO) 85 /CMM (150-450); RED BLOOD CELL COUNT(AUTO) 2.87 MIL/uL (4.0-5.2); WHITE BLOOD COUNT (AUTO) 12.2 K/uL (4.3-11.0)
[2019-03-24 05:09] LABS: CALCIUM, SERUM 8.8 mg/dL (8.5-10.1); CARBON DIOXIDE 22 mmol/L (21-32); CHLORIDE 103 mmol/L (98-107); GLUCOSE 151 mg/dL (74-106); PHOSPHORUS 5.7 mg/dL (2.5-4.9); POTASSIUM 4.3 mmol/L (3.5-5.1); SODIUM SERUM 140 mmol/L (136-145); UREA NITROGEN, BLOOD 48 mg/dL (7-18)
[2019-03-24 05:37] LABS: LYMPHOCYTES % (MANUAL) 2 % (16-48); MONOCYTES % (MANUAL) 2 % (0-11.0); NEUTROPHILS % (MANUAL) 96 (42-76)
[2019-03-24] MEDS: BLOOD SUGAR DIAGNOSTIC 1 EACH STRIP VI SCH ×4 (06:33→22:15)
[2019-03-24] MEDS: SUCRALFATE 1 G/10 ML UDC GT SCH ×4 (06:33→22:00)
--- NOTE | 2019-03-24 07:14 | NUR ---
COMMISSIONING EDITOR NOTES RECEIVED PATIENT AOX1-2 LETHARGIC ABLE TO FOLLOW COMMANDS , ST 110 , ON HIGH FLOW NC @ 45LPM / 45% FIO2 SPO2 OF 95-98% FC DRAINING VIA GRAVITY , JUS PICC LINE AND LFA # 20 PATENT AND INTACT , R FEMORAL HD CATH IN PLACE , ALL NEEDS ATTENDED , BED ON LOW AND LOCKED POSITION , SIDE RAILS X2 ,CALL LIGHT WITHIN REACH HOB @ 45 WILL CONTINUE TO MONITOR .
[2019-03-24 08:09] LABS: ABG BASE EXCESS -5.8 mmol/L; ABG OXYGEN SATURATION 96.3 % (92.0-98.5); ABG PCO2 28.6 mmHg (35.0-45.0); ABG PH 7.411 (7.350-7.450); ABG PO2 98.9 mmHg (75.0-100.0); AaDO2 153.4 mmHg; COHb 0.2 % (0.5-1.5); MetHb 0.3 % (0.0-1.5); O2Hb 95.8 % (94.0-97.0); SITE, ABG Right Radial; VENT MODE, BG HIGH FLOW 40%
--- NOTE | 2019-03-24 08:42 | NUR ---
WOUND CARE CONSULT: PT SEEN FOR SACRAL/BUTTOCKS AREA. PT CONTINUES TO HAVE INCONTINENCE ASSOCIATED SKIN DAMAGE TO PERIANAL/GLUTEAL CREASE AREA AND BLANCHABLE REDNESS TO SACRUM WITH SOME DISCOLORATION OF BUTTOCKS SKIN. RECOMMENDATIONS MADE FOR SKIN PROTECTION DISCUSSED WITH NURSING STAFF. SKIN TO BE KEPT CLEAN AND DRY. WILL SEE PRN. WELDON IN AGREEMENT WITH PLAN OF CARE.
[2019-03-24] MEDS: PANTOPRAZOLE 40 MG VIAL IV SCH ×2 (08:53→17:56)
[2019-03-24] MEDS: METOPROLOL TARTRATE INJ 5 MG/5 ML AMPUL IVP PRN (08:53)
[2019-03-24] MEDS: SERTRALINE HCL 50 MG TABLET PO SCH ×2 (08:54→17:56)
--- NOTE | 2019-03-24 09:00 | NUR ---
REGULATORY AFFAIRS COORDINATOR NOTES SEEN AND EVALUATED BY DR KAMARA , PT IS MORE AWAKE ALERT X1-2 LETHARGIC , DISCUSSED LABS ABG, ON 45 LPM @ 40 % FIO2 HIGH FLOW NC , ST 105-120 ON BEDSIDE MONITOR , WITH ELEVATED BP , MD AWARE , PER MD PUT PT ON NC @ 5LPM . ORDER CARRIED OUT
[2019-03-24] MEDS: ACETAMINOPHEN 325 MG TABLET PO PRN (09:46)
--- NOTE | 2019-03-24 10:00 | NUR ---
STAFF COUNSELOR NOTES NOTIFIED DR LYLES REGARDING BP OF 174/ 94 , AND BP OF 178/112 , PT DENIES OF ANY PAIN AND SOB , NO DISTRESS NOTED , TOLERATING NC @ 5LPM NC SPO2 OF 100% , PER MD ORDER NITRO PAST 2GM BID , ORDERS CARRIED OUT
--- NOTE | 2019-03-24 11:00 | NUR ---
REIMBURSEMENT CONSULTANT NOTES CALLED PHARMACY , SPOKE WITH PAVEL , FOLLOW UP NITRO PASTE . PHARMACIST AWARE ,
[2019-03-24] MEDS: NITROGLYCERIN 30 GM TUBE TOP SCH ×2 (11:36→18:02)
[2019-03-24] MEDS: INSULIN REGULAR, HUMAN 100 UNIT/ML 3 ML VIAL SQ PRN ×4 (11:48→22:24)
--- NOTE | 2019-03-24 12:18 | NUR ---
SERVICE TESTER NOTES UPDATED DR KAMARA REGARDING PT STATUS , TOLERATING 5LPM NC , SPO2 OF 95-100% , RR 18-20 CPM , BP OF 129/78 , PT DENIES ANY SOB AND PAIN , AWARE
--- NOTE | 2019-03-24 15:30 | NUR ---
MANAGER MARKETING NOTES HD NURSE AT BEDSIDE , PT STABLE , ON 5LPM NC SPO2 OF 00% , CVP 10-11MMHG , VSS AFEBRILE , WILL CONTINUE TO MONITOR
--- NOTE | 2019-03-24 17:31 | NUR ---
OPTICAL FABRICATOR NOTES NOTIFIED DR TRIPATHI THAT DR KAMARA IS CLEARING PT FOR LOWER LEVEL OF CARE , PT ON 5LPM NC SPO2 OF 100% WITH NO SIGNS OF DISTRESS , VS STABLE ,AFEBRILE , PER MD TRANSFER PT TO [facility] STATUS . ORDER CARRIED OUT
[2019-03-24] MEDS: CEFTRIAXONE 1 G in IV D5W 50 ML IV SCH (17:57)
--- NOTE | 2019-03-24 19:22 | NUR ---
HYPERION DEVELOPER NOTES PATIENT STABLE AOX2 LETHARGIC ABLE TO FOLLOW COMMANDS , ST 105 , ON HIGH FLOW NC @ 5LPM NC SPO2 OF 100% FC DRAINING VIA GRAVITY , JUS PICC LINE AND LFA # 20 PATENT AND INTACT , R FEMORAL HD CATH IN PLACE , ALL NEEDS ATTENDED , BED ON LOW AND LOCKED POSITION , SIDE RAILS X2 ,CALL LIGHT WITHIN REACH HOB @ 45 REPORT GIVEN TO VON FOR CONTINUITY OF CARE
[2019-03-25] VITALS: BP_SYST 146; BP_SYST 163; BP_DIAS 85; BP_DIAS 91
[2019-03-25] MEDS: ALBUTEROL FS 2.5 MG/0.5 ML VIAL.NEB NEB SCH ×7 (00:10→23:30)
[2019-03-25] MEDS: IPRATROPIUM NEB FS 0.5 MG/2.5 ML AMPUL.NEB NEB SCH ×7 (00:10→23:30)
--- NOTE | 2019-03-25 00:20 | NUR ---
TX TO [facility] VIA BED AND MONITOR. VSS
--- NOTE | 2019-03-25 00:30 | NUR ---
RECEIVED PATIENT FROM ICU ON RWATCHUNG , A/OX4, ON 5L O2 VIA NC WITH SPO2 OF 97%. HAS SACRAL EXCORIATION. PICC LINE IS PATIENT AND INTACT. ALL SAFETY IN PLACE, CALL LIGHT IN REACH. PATIENT CAME WITHOUT ANY BELONGINGS, CALLED ICU AND VERIFIED WITH NAZIA LONGORIA THAT PATIENT HAD NO BELONGINGS WITH HER.NO SOB, NO CHEST PAIN AT THIS TIME.
[2019-03-25] MEDS: ACETAMINOPHEN 325 MG TABLET PO PRN ×4 (01:31→16:16)
[2019-03-25] MEDS: METOPROLOL TARTRATE INJ 5 MG/5 ML AMPUL IVP PRN (01:46)
--- NOTE | 2019-03-25 01:50 | NUR ---
PATIENT'S B/P IS 163/91 HR 105 AND 5MG OF LOPRESSOR IVP IS ADMINISTERED. WILL RECHECK B/P AND HR IN 15-20 MINUTES.
--- NOTE | 2019-03-25 02:25 | NUR ---
PATIENT'S B/P IS 151/98 HR 65 AFTER MEDICATION ADMINISTRATION (LOPRESSOR 5MG). WILL CONTINUE TO MONITOR PATIENT CLOSELY.
[2019-03-25 04:00] VITALS: BP 146/91
--- NOTE | 2019-03-25 07:15 | NUR ---
RN INITIAL NOTE PATIENT IN BED, AWAKE AND ALERT. ON 5L NC, NO SOB NOTE. NO COMPLAINS OF ANY PAIN AT THIS TIME. ON TELE MONITOR, SR. HAS A RIGHT UA PICC AND RIGHT FEMORAL HD CATH. BED LOCKED AND IN LOWEST POSITION. CALL LIGHT WITHIN REACH. WILL CONTINUE TO MONITOR CLOSELY
[2019-03-25] MEDS: SUCRALFATE 1 G/10 ML UDC GT SCH ×4 (07:38→21:58)
[2019-03-25] MEDS: BLOOD SUGAR DIAGNOSTIC 1 EACH STRIP VI SCH ×4 (07:49→21:59)
[2019-03-25] MEDS: INSULIN REGULAR, HUMAN 100 UNIT/ML 3 ML VIAL SQ PRN ×3 (07:51→17:59)
[2019-03-25 08:00] VITALS: BP 164/98
[2019-03-25 08:00] LABS: BASOPHILS % (AUTO) 0.4 % (0.0-2.0); EOSINOPHILS % (AUTO) 0.8 % (0.0-6.0); HEMATOCRIT 28 % (33-45); HEMOGLOBIN 9.3 g/dL (11.5-14.8); LYMPHOCYTES # (AUTO) 0.4 /CMM (0.8-4.8); LYMPHOCYTES % (AUTO) 3.6 % (20.0-44.0); MEAN CORPUSCULAR HGB CONC 34 g/dl (31.0-36.0); MEAN CORPUSCULAR VOLUME 91 fL (82-100); MONOCYTES # (AUTO) 0.4 /CMM (0.1-1.30); MONOCYTES % (AUTO) 3.5 % (2.0-12.0); NEUTROPHILS # (AUTO) 9.3 /CMM (1.8-8.9); NEUTROPHILS % (AUTO) 91.7 % (43.0-81.0); PLATELET COUNT (AUTO) 90 /CMM (150-450); RED BLOOD CELL COUNT(AUTO) 3.07 MIL/uL (4.0-5.2); WHITE BLOOD COUNT (AUTO) 10.1 K/uL (4.3-11.0)
[2019-03-25 08:06] LABS: CALCIUM, SERUM 8.5 mg/dL (8.5-10.1); CARBON DIOXIDE 22 mmol/L (21-32); CHLORIDE 102 mmol/L (98-107); GLUCOSE 160 mg/dL (74-106); PHOSPHORUS 5.1 mg/dL (2.5-4.9); POTASSIUM 3.9 mmol/L (3.5-5.1); SODIUM SERUM 139 mmol/L (136-145); UREA NITROGEN, BLOOD 57 mg/dL (7-18)
[2019-03-25] MEDS: SERTRALINE HCL 50 MG TABLET PO SCH ×2 (08:39→16:16)
[2019-03-25] MEDS: PANTOPRAZOLE 40 MG VIAL IV SCH ×2 (08:39→16:16)
[2019-03-25] MEDS: NITROGLYCERIN 30 GM TUBE TOP SCH ×2 (08:43→17:41)
--- NOTE | 2019-03-25 09:00 | NUR ---
RN NOTE DIALYSIS NURSE AT BEDSIDE, OK TO GIVE PROTONIX AND ZOLOFT PATIENT COMPLAINED OF BACK PAIN, TYLENOL GIVEN FAMILY AT BEDSIDE AT THIS TIME
--- NOTE | 2019-03-25 10:30 | NUR ---
RN NOTE VALENTINO AT BEDSIDE, WANTS TO CHECK A MANUAL BP FOR THE PATIENT. BP 168/88. MD ORDERED ADDITIONAL BP MEDS
[2019-03-25] MEDS: hydrALAZINE HCL 50 MG TABLET PO SCH ×2 (11:22→16:17)
--- NOTE | 2019-03-25 11:30 | NUR ---
RN NOTE DIALYSIS DONE, 2L OUT
[2019-03-25 12:00] VITALS: BP 141/88
[2019-03-25] MEDS ORDERED: NEPRO VAN 237 ML CAN PO PRN (15:30)
--- NOTE | 2019-03-25 15:30 | NUR ---
RN NOTE PER JUAN DAVID KOENIG TO CHANGE DIET TO REGULAR FULL LIQUID. RD AT BEDSIDE, ASKED THE PATIENT TO TRY VANILLA NEPRO SHAKE. PATIENT AGREED. ORDER CARRIED OUT. SON AT BEDSIDE WELL
[2019-03-25 16:00] VITALS: BP 138/68
[2019-03-25] MEDS: CEFTRIAXONE 1 G in IV D5W 50 ML IV SCH (17:41)
--- NOTE | 2019-03-25 19:20 | NUR ---
RN OPENING NOTE PATIENT IN BED, AWAKE AND ALERT X3. WITH SON AT BEDSIDE. ON 5L NC, NO SOB NOTED. NO RESP. DISTRESS. SATURATION >92%. IV SITES ON RIGHT UA PICC AND RIGHT FEMORAL HD CATH CLEAN, DRY AND PATENT, WITH IV INFUSION BEING TOLERATED WELL. NO COMPLAINTS OF ANY PAIN AT THIS TIME. CALL LIGHT IN REACH. BED LOCKED, LOW AND AT SEMI-PLASCENCIA'S POSITION. SIDE RAILS UP X3. NEEDS ANTICIPATED. SAFETY ENSURED AND OBSERVED. WILL CONTINUE TO MONITOR.
[2019-03-25 20:00] VITALS: BP 127/75
[2019-03-25] MEDS: *INSULIN REGULAR(HUMULIN R)HUM 100 UNIT/ML VIAL SQ PRN (22:00)
--- NOTE | 2019-03-26 02:33 | NUR ---
RN NOTE: MORPHINE 2MG IV PUSH Q4H PRN ORDER GIVEN BY EWA GARRETT FOR PATIENT'S REPORTED GENERALIZED PAIN OF 7/10. NOTED AND CARRIED OUT
[2019-03-26] MEDS: ALBUTEROL FS 2.5 MG/0.5 ML VIAL.NEB NEB SCH ×6 (03:30→23:30)
[2019-03-26] MEDS: IPRATROPIUM NEB FS 0.5 MG/2.5 ML AMPUL.NEB NEB SCH ×6 (03:30→23:30)
[2019-03-26 04:00] VITALS: BP 141/79
[2019-03-26] MEDS: MORPHINE SULFATE INJ 2 MG/ML DISP.SYRIN IV PRN ×5 (04:34→20:42)
[2019-03-26 06:17] LABS: BASOPHILS % (AUTO) 0.4 % (0.0-2.0); EOSINOPHILS % (AUTO) 1.8 % (0.0-6.0); HEMATOCRIT 29 % (33-45); HEMOGLOBIN 9.7 g/dL (11.5-14.8); LYMPHOCYTES # (AUTO) 0.2 /CMM (0.8-4.8); LYMPHOCYTES % (AUTO) 3.2 % (20.0-44.0); MEAN CORPUSCULAR HGB CONC 34 g/dl (31.0-36.0); MEAN CORPUSCULAR VOLUME 90 fL (82-100); MONOCYTES # (AUTO) 0.3 /CMM (0.1-1.30); MONOCYTES % (AUTO) 3.7 % (2.0-12.0); NEUTROPHILS # (AUTO) 6.4 /CMM (1.8-8.9); NEUTROPHILS % (AUTO) 90.9 % (43.0-81.0); PLATELET COUNT (AUTO) 97 /CMM (150-450); RED BLOOD CELL COUNT(AUTO) 3.19 MIL/uL (4.0-5.2); WHITE BLOOD COUNT (AUTO) 7.1 K/uL (4.3-11.0)
[2019-03-26 06:47] LABS: CALCIUM, SERUM 8.1 mg/dL (8.5-10.1); CARBON DIOXIDE 25 mmol/L (21-32); CHLORIDE 101 mmol/L (98-107); CREATININE 4.5 mg/dL (0.6-1.3); GLUCOSE 195 mg/dL (74-106); MAGNESIUM 1.7 mg/dL (1.8-2.4); PHOSPHORUS 3.3 mg/dL (2.5-4.9); SODIUM SERUM 137 mmol/L (136-145); UREA NITROGEN, BLOOD 50 mg/dL (7-18)
--- NOTE | 2019-03-26 06:50 | NUR ---
RN CLOSING NOTE PATIENT IN BED AND ASLEEP. ON 5L NC, NO SOB AND NO RESPIRATORY DISTRESS NOTED. NO ACUTE CHANGES NOTED ON SHIFT. IV SITES ON RIGHT UA PICC AND RIGHT FEMORAL HD CATH CLEAN, DRY AND PATENT. WITH IV INFUSION BEING TOLERATED WELL. NO COMPLAINTS OF ANY PAIN AT THIS TIME. CALL LIGHT IN REACH. BED LOCKED, LOW AND AT SEMI-PLASCENCIA'S POSITION. SIDE RAILS UP X3. NEEDS ANTICIPATED. SAFETY ENSURED AND OBSERVED. WILL CONTINUE TO MONITOR AND ENDORSE TO ONCOMING SHIFT FOR MIKI.
[2019-03-26] MEDS: BLOOD SUGAR DIAGNOSTIC 1 EACH STRIP VI SCH ×4 (07:30→21:19)
--- NOTE | 2019-03-26 07:40 | NUR ---
RN OPENING NOTES Received patient room air, no sob noted, patient denies pain at this time. Generalized edema present, and is on full liquid diet. JUS PICC line SL. R femoral HD. Bed at the lowest setting, call light within reach, side rails up x2.
[2019-03-26 08:00] VITALS: BP 154/82
[2019-03-26] MEDS: SERTRALINE HCL 50 MG TABLET PO SCH ×2 (08:12→16:40)
[2019-03-26] MEDS: SUCRALFATE 1 G/10 ML UDC GT SCH ×4 (08:12→20:43)
[2019-03-26] MEDS: PANTOPRAZOLE 40 MG VIAL IV SCH ×2 (08:12→16:40)
[2019-03-26] MEDS: hydrALAZINE HCL 50 MG TABLET PO SCH ×3 (08:13→16:41)
[2019-03-26] MEDS: NITROGLYCERIN 30 GM TUBE TOP SCH ×2 (08:14→17:38)
[2019-03-26] MEDS: INSULIN REGULAR, HUMAN 100 UNIT/ML 3 ML VIAL SQ PRN ×3 (08:44→17:40)
[2019-03-26] MEDS: Magnesium 1GM/D5W 100ML PREMIX 100 ML IV SCH ×2 (09:56→10:32)
[2019-03-26] MEDS: POTASSIUM CHLORIDE 20 MEQ TAB.PRT.SR PO SCH ×3 (09:56→13:04)
--- NOTE | 2019-03-26 10:17 | NUR ---
rn notes Report given to NAZIA SELF for MIKI
[2019-03-26 12:00] VITALS: BP 136/66
[2019-03-26 16:00] VITALS: BP 136/66
--- NOTE | 2019-03-26 16:53 | NUR ---
appeared alert, oriented, and very appropriate. on full liquid diet, with thicket, tolerated well. c/o pain " all over, h/o of multiple myeloma, MSO4 2mg ivp did not relieve the pain now increased to 3mg ivp, first dose now given stated right now, " it helped quite a bit"
[2019-03-26] MEDS: CEFTRIAXONE 1 G in IV D5W 50 ML IV SCH (17:41)
[2019-03-26 20:00] VITALS: BP 115/50
[2019-03-26 20:14] VITALS: BP 115/50
[2019-03-26] MEDS: METOPROLOL TARTRATE 50 MG TABLET PO SCH (20:30)
[2019-03-26] MEDS: *INSULIN REGULAR(HUMULIN R)HUM 100 UNIT/ML VIAL SQ PRN (21:18)
[2019-03-27] MEDS: ALBUTEROL FS 2.5 MG/0.5 ML VIAL.NEB NEB SCH ×7 (03:30→23:58)
[2019-03-27] MEDS: IPRATROPIUM NEB FS 0.5 MG/2.5 ML AMPUL.NEB NEB SCH ×6 (03:30→23:58)
[2019-03-27 04:00] VITALS: BP 129/58
[2019-03-27 04:23] VITALS: BP 132/69
[2019-03-27] MEDS: INSULIN REGULAR, HUMAN 100 UNIT/ML 3 ML VIAL SQ PRN ×3 (06:52→16:49)
--- NOTE | 2019-03-27 07:20 | NUR ---
RN OPENING NOTES: RECEIVED PT RESTING IN BED ON 4L/MIN NC. NO SOB OR RESPIRATORY DISTRESS NOTED AT THIS TIME. PICC LINE ON RIGHT UA. FLUSHED, PATENT AND CLEAN AND DRY. RIGHT FEMORAL HD CATH. BED IN LOWEST POSITION, LOCKED, SIDE RAILS UP X3. CALL LIGHT WITHIN REACH. WILL CONTINUE TO MONITOR.
[2019-03-27] MEDS: SUCRALFATE 1 G/10 ML UDC GT SCH ×4 (07:30→22:00)
[2019-03-27] MEDS: BLOOD SUGAR DIAGNOSTIC 1 EACH STRIP VI SCH ×4 (07:58→21:41)
[2019-03-27 08:00] VITALS: BP 146/84
--- NOTE | 2019-03-27 08:38 | NUR ---
RN NOTES UNABLE TO ADMIN SUCRALFATE, PT IS BEING DIALYZED
[2019-03-27] MEDS: PANTOPRAZOLE 40 MG VIAL IV SCH ×2 (10:10→16:44)
[2019-03-27] MEDS: SERTRALINE HCL 50 MG TABLET PO SCH ×2 (10:10→16:44)
[2019-03-27] MEDS: hydrALAZINE HCL 50 MG TABLET PO SCH ×3 (10:11→16:45)
[2019-03-27] MEDS: NITROGLYCERIN 30 GM TUBE TOP SCH ×2 (10:12→16:51)
[2019-03-27] MEDS: MORPHINE SULFATE INJ 2 MG/ML DISP.SYRIN IV PRN ×3 (10:21→20:15)
[2019-03-27 11:53] LABS: BASOPHILS % (AUTO) 0.3 % (0.0-2.0); EOSINOPHILS % (AUTO) 1.3 % (0.0-6.0); HEMATOCRIT 28 % (33-45); HEMOGLOBIN 9.2 g/dL (11.5-14.8); LYMPHOCYTES # (AUTO) 0.4 /CMM (0.8-4.8); MEAN CORPUSCULAR HGB CONC 33 g/dl (31.0-36.0); MEAN CORPUSCULAR VOLUME 91 fL (82-100); MONOCYTES # (AUTO) 0.4 /CMM (0.1-1.30); MONOCYTES % (AUTO) 7.1 % (2.0-12.0); NEUTROPHILS % (AUTO) 84.3 % (43.0-81.0); PLATELET COUNT (AUTO) 107 /CMM (150-450); RED BLOOD CELL COUNT(AUTO) 3.07 MIL/uL (4.0-5.2); WHITE BLOOD COUNT (AUTO) 5.9 K/uL (4.3-11.0)
[2019-03-27 11:58] LABS: CALCIUM, SERUM 8.5 mg/dL (8.5-10.1); CARBON DIOXIDE 25 mmol/L (21-32); CHLORIDE 99 mmol/L (98-107); CREATININE 4.4 mg/dL (0.6-1.3); GLUCOSE 284 mg/dL (74-106); POTASSIUM 3.3 mmol/L (3.5-5.1); SODIUM SERUM 135 mmol/L (136-145); UREA NITROGEN, BLOOD 43 mg/dL (7-18)
[2019-03-27 16:00] VITALS: BP 135/77
--- NOTE | 2019-03-27 17:10 | NUR ---
RN CLOSING NOTES: PT IN BED RESTING, A&OX4 , ABLE TO VERBALIZE NEEDS. PT HAD HD TODAY, 2L TAKEN OUT. ALL MEDICATIONS ADMINISTERED PRESCRIBED. PRN MORPHINE GIVEN NEEDED. BED IN LOWEST AND LOCKED POSITION. CALL LIGHT WITHIN REACH. ALL NEEDS MET AND ATTENDED TO. ENDORSED TO NOC RN FOR MIKI.
[2019-03-27] MEDS: CEFTRIAXONE 1 G in IV D5W 50 ML IV SCH (17:35)
--- NOTE | 2019-03-27 19:24 | NUR ---
MS/RN OPENING NOTES PATIENT ALERT, ORIENTED X4, ABLE TO VERBALIZE NEEDS BUT VERY FAINT AND SOFT VOICE, ON OXYGEN AT 4LITER, SKIN WARM TO TOUCH, FAMILY AT BEDSIDE, DISCUSSED PLAN OF CARE SON TAMMY WITH CONTACT NO [phone], JUS PICC LINE, HAD HD TODAY 2LITER OUT, ON RENAL HIGH PUREED NECTAR DIET, LEFT FEMORAL DIALYSIS. BED LOCKED, CA;; ;IGHTS WITHIN REACH, WILL MONITOR.
--- NOTE | 2019-03-27 19:48 | NUR ---
MS/RN NOTES PATIENT AND SON TAMMY WAS MADE AWARE REGARDING AN ORDER OF MD BLUE FOR PERMACATHETHET PROCEDURE THAT NEED TO OBTAIN CONSENT, PER FAMILY TO DISCUSS FIRST THE PROCEDURE BEFORE THEY SIGN THE CONSENT TOMORROW.
[2019-03-27 19:57] VITALS: BP 128/59
[2019-03-27 20:00] VITALS: BP 128/59
--- NOTE | 2019-03-27 20:15 | NUR ---
MS/RN NOTES PATIENT REQUESTED FOR PAIN MEDICATION NEEDED MORPHINE 3MG/1.5ML IVP TO ADMINISTER AND MONITOR RELIEF.
[2019-03-27] MEDS: *INSULIN REGULAR(HUMULIN R)HUM 100 UNIT/ML VIAL SQ PRN (21:47)
--- NOTE | 2019-03-27 22:11 | NUR ---
MS/RN NOTES PER PATIENT ANAD SON, WAS GIVEN EARLIER AND RESUE TO HAVE IT AT THIS TIME.THE NATALIA.
[2019-03-28 01:10] VITALS: BP 128/59
[2019-03-28] MEDS: ALBUTEROL FS 2.5 MG/0.5 ML VIAL.NEB NEB SCH ×6 (03:22→23:15)
[2019-03-28] MEDS: IPRATROPIUM NEB FS 0.5 MG/2.5 ML AMPUL.NEB NEB SCH ×6 (03:22→23:15)
[2019-03-28 04:00] VITALS: BP 145/68
--- NOTE | 2019-03-28 06:36 | NUR ---
117+2 MS/RN NOTES PATIENT ABLE TO SLEEP DURING TH ESHIFT, ON PAIN MANAGE,EMT MONITORING,ATTENDED TO ALL NEEDS, BED LOCKED, CALL LIGHTS WITHIN REACH/
[2019-03-28 06:48] LABS: CALCIUM, SERUM 8.2 mg/dL (8.5-10.1); CARBON DIOXIDE 25 mmol/L (21-32); CHLORIDE 99 mmol/L (98-107); CREATININE 5.2 mg/dL (0.6-1.3); GLUCOSE 198 mg/dL (74-106); POTASSIUM 3.6 mmol/L (3.5-5.1); SODIUM SERUM 134 mmol/L (136-145); UREA NITROGEN, BLOOD 53 mg/dL (7-18)
[2019-03-28 06:50] LABS: BASOPHILS % (AUTO) 0.9 % (0.0-2.0); EOSINOPHILS % (AUTO) 1.1 % (0.0-6.0); HEMATOCRIT 25 % (33-45); HEMOGLOBIN 8.3 g/dL (11.5-14.8); LYMPHOCYTES # (AUTO) 0.3 /CMM (0.8-4.8); LYMPHOCYTES % (AUTO) 5.3 % (20.0-44.0); MEAN CORPUSCULAR HGB CONC 34 g/dl (31.0-36.0); MEAN CORPUSCULAR VOLUME 91 fL (82-100); MONOCYTES # (AUTO) 0.4 /CMM (0.1-1.30); MONOCYTES % (AUTO) 8.4 % (2.0-12.0); NEUTROPHILS # (AUTO) 4.3 /CMM (1.8-8.9); NEUTROPHILS % (AUTO) 84.3 % (43.0-81.0); PLATELET COUNT (AUTO) 101 /CMM (150-450); RED BLOOD CELL COUNT(AUTO) 2.74 MIL/uL (4.0-5.2); WHITE BLOOD COUNT (AUTO) 5.1 K/uL (4.3-11.0)
[2019-03-28] MEDS: SUCRALFATE 1 G/10 ML UDC GT SCH ×4 (07:30→21:34)
[2019-03-28 08:00] VITALS: BP 149/76
[2019-03-28] MEDS: hydrALAZINE HCL 50 MG TABLET PO SCH ×3 (08:28→17:00)
[2019-03-28] MEDS: BLOOD SUGAR DIAGNOSTIC 1 EACH STRIP VI SCH ×4 (08:28→21:35)
[2019-03-28] MEDS: SERTRALINE HCL 50 MG TABLET PO SCH ×2 (08:29→17:53)
[2019-03-28] MEDS: PANTOPRAZOLE 40 MG VIAL IV SCH ×2 (08:38→17:53)
[2019-03-28] MEDS: NITROGLYCERIN 30 GM TUBE TOP SCH ×2 (08:39→17:00)
[2019-03-28 12:00] VITALS: BP 148/70
[2019-03-28] MEDS ORDERED: LIDOCAINE HCL/MPF 1% 30 ML VIAL IJ ONE (14:53)
[2019-03-28] MEDS ORDERED: HEPARIN SODIUM, PORCINE 1,000 UNIT/ML VIAL ONE (14:53)
[2019-03-28] MEDS ORDERED: FENTANYL PF 100MCG/2ML AMPUL ONE (15:30)
--- NOTE | 2019-03-28 16:35 | NUR ---
Patient back from dialysis catheter placement. Dressing with small amount of blood. Dialysis nurse notified patient is back on the unit. Restarted orders in place prior to procedure. Notified kitchen to provide dinner tray. VSS : 97.2 80 18 96% on oxygen at 4 L/min via nasal cannula 123/58. Son at bedside. Will continue to monitor patient.
[2019-03-28] MEDS: CEFTRIAXONE 1 G in IV D5W 50 ML IV SCH (18:06)
--- NOTE | 2019-03-28 19:35 | NUR ---
MS RN OPENING NOTES RECEIVED PATIENT FROM MORNING SHIFT, ALERT AND ORIENTED X 3. VERBALLY RESPONSIVE AND ABLE TO FOLLOW DIRECTIONS. BREATHING REGULAR AND UNLABORED ON OXYGEN AT 4L/MIN VIA NASAL CANNULA. RIGHT UPPER ARM PICC LINE AND LEFT WRIST G20 IV LINE INTACT AND PATENT FLUSHING WELL WITH NO BLEEDING OR S/S OF INFECTION SEEN. RIGHT CHEST PERMACATH PATENT WITH CLEAN AND DRY DRESSING. NO COMPLAINTS OF PAIN/DISCOMFORT REPORTED OF THE TIME. BED LOW AND LOCKED ON SEMI FOWLERS POSITION. CALL LIGHT IN REACH. WILL CONTINUE TO MONITOR.
[2019-03-28] MEDS: *INSULIN REGULAR(HUMULIN R)HUM 100 UNIT/ML VIAL SQ PRN (21:37)
--- NOTE | 2019-03-28 22:00 | NUR ---
MS RN NOTES BS 251mg/dL, 6UNITS REGULAR INSULIN GIVEN SQ. SNACKS PROVIDED ON BEDSIDE, ASSISTED ON EATING. WILL CONTINUE TO MONITOR.
[2019-03-29] VITALS: BP 143/68
[2019-03-29] MEDS: MORPHINE SULFATE INJ 2 MG/ML DISP.SYRIN IV PRN ×3 (01:56→18:07)
--- NOTE | 2019-03-29 02:00 | NUR ---
MS RN NOTES COMPLAINED OF 9/10 GENERALIZED PAIN, MORPHINE 3MG GIVEN VIA IV PUSH. NON-PHARMACOLOGICAL INTERVENTIONS PROVIDED. VITAL SIGNS WNL. WILL CONTINUE TO MONITOR.
[2019-03-29] MEDS: IPRATROPIUM NEB FS 0.5 MG/2.5 ML AMPUL.NEB NEB SCH ×6 (02:59→22:34)
[2019-03-29] MEDS: ALBUTEROL FS 2.5 MG/0.5 ML VIAL.NEB NEB SCH ×6 (02:59→22:34)
--- NOTE | 2019-03-29 06:40 | NUR ---
MS RN CLOSING NOTES PATIENT IN BED ALERT AND ORIENTED X 3. VERBALLY RESPONSIVE AND ABLE TO FOLLOW DIRECTIONS. BREATHING REGULAR AND UNLABORED ON OXYGEN AT 4L/MIN VIA NASAL CANNULA. RIGHT UPPER ARM PICC LINE AND LEFT WRIST G20 IV LINE INTACT AND FLUSHING WELL. RIGHT CHEST PERMACATH INTACT WITH CLEAN AND DRY DRESSING. NO COMPLAINTS OF PAIN/DISCOMFORT REPORTED OF THE TIME. ON-GOING WOUND TREATMENTS PROVIDED. BED LOW AND LOCKED ON SEMI FOWLERS POSITION. CALL LIGHT IN REACH. WILL ENDORSE TO MORNING SHIFT FOR MIKI.
--- NOTE | 2019-03-29 07:00 | NUR ---
RN MS1 OPENING NOTES PATIENT IS ASLEEP BUT EASILY WOKEN WITH NAME AND TOUCH , ALERT AND ORIENTED X 3. VERBALLY RESPONSIVE AND ABLE TO FOLLOW DIRECTIONS. BREATHING REGULAR AND UNLABORED ON OXYGEN AT 4L/MIN VIA NASAL CANNULA. RIGHT UPPER ARM PICC LINE AND LEFT WRIST G20 IV LINE INTACT AND PATENT FLUSHING WELL WITH NO BLEEDING OR S/S OF INFECTION SEEN OR INFILTRATION. RIGHT CHEST PERMACATH PATENT WITH CLEAN AND DRY DRESSING. NO COMPLAINTS OF PAIN/DISCOMFORT REPORTED OF THE TIME. BED LOCKED AND LOWEST POSITION CALL LIGHT WITH IN REACH ALL SAFETY MEASURE IMPLEMENTED PER HOSPITAL POLICY.
[2019-03-29 07:10] LABS: BASOPHILS % (AUTO) 0.9 % (0.0-2.0); EOSINOPHILS % (AUTO) 0.9 % (0.0-6.0); HEMATOCRIT 24 % (33-45); HEMOGLOBIN 7.9 g/dL (11.5-14.8); LYMPHOCYTES # (AUTO) 0.3 /CMM (0.8-4.8); LYMPHOCYTES % (AUTO) 6.4 % (20.0-44.0); MEAN CORPUSCULAR HGB CONC 33 g/dl (31.0-36.0); MEAN CORPUSCULAR VOLUME 91 fL (82-100); MONOCYTES # (AUTO) 0.4 /CMM (0.1-1.30); MONOCYTES % (AUTO) 9.1 % (2.0-12.0); NEUTROPHILS % (AUTO) 82.7 % (43.0-81.0); PLATELET COUNT (AUTO) 109 /CMM (150-450); RED BLOOD CELL COUNT(AUTO) 2.66 MIL/uL (4.0-5.2); WHITE BLOOD COUNT (AUTO) 4.9 K/uL (4.3-11.0)
[2019-03-29 07:38] LABS: CALCIUM, SERUM 8.7 mg/dL (8.5-10.1); CARBON DIOXIDE 24 mmol/L (21-32); CHLORIDE 98 mmol/L (98-107); GLUCOSE 146 mg/dL (74-106); POTASSIUM 3.9 mmol/L (3.5-5.1); SODIUM SERUM 132 mmol/L (136-145); UREA NITROGEN, BLOOD 56 mg/dL (7-18)
[2019-03-29 08:00] VITALS: BP 117/72
[2019-03-29] MEDS: hydrALAZINE HCL 50 MG TABLET PO SCH ×4 (09:00→18:34)
[2019-03-29] MEDS: SUCRALFATE 1 G/10 ML UDC GT SCH ×4 (09:10→22:45)
[2019-03-29] MEDS: SERTRALINE HCL 50 MG TABLET PO SCH ×2 (09:10→17:43)
[2019-03-29] MEDS: PANTOPRAZOLE 40 MG VIAL IV SCH ×2 (09:11→17:40)
[2019-03-29] MEDS: BLOOD SUGAR DIAGNOSTIC 1 EACH STRIP VI SCH ×4 (09:12→22:52)
[2019-03-29] MEDS: NITROGLYCERIN 30 GM TUBE TOP SCH ×2 (09:15→17:43)
[2019-03-29] MEDS: INSULIN REGULAR, HUMAN 100 UNIT/ML 3 ML VIAL SQ PRN ×2 (09:39→17:42)
[2019-03-29 12:00] VITALS: BP 136/71
[2019-03-29 16:00] VITALS: BP 122/65
--- NOTE | 2019-03-29 19:25 | NUR ---
RN MS1 PATIENT IS AWAKE BUT AT TIMES FALLS ASLEEP PATIENT IS A/O X3 PATIENT IS ALERT. PATIENT NO SOB, NO PAIN, NO ACUTE RESPIRATORY DISTRESS. PATIENT IS ON 4 LMP OF O2. VIA NC. PATIENT HAS JUS PICC NAD LEFT WRIST G20IV LINE INTACT AND PATIENT . DRESSING CLEAN AND INTACT. NO SIGNS OF INFECTION OR INFILTRATION. BED LOCKED AND LOWEST POSITION CALL LIGHT WITH IN REACH ALL SAFETY MEASURE IMPLEMENTED PER HOSPITAL POLICY
[2019-03-29] MEDS ORDERED: LIDOCAINE 1% INJ 50 ML MDV IJ ONE (20:00)
--- NOTE | 2019-03-29 21:30 | NUR ---
RN NOTES SON, TAMMY, SIGNED CONSENT FOR BONE MARROW BIOPSY ON BEHALF OF PATIENT. STATES HE TALKED TO DR. BAEZ ABOUT PROCEDURE. PATIENT AND SON, TAMMY, UNDERSTANDS THE RISKS AND BENEFITS OF PROCEDURE.
[2019-03-29] MEDS: *INSULIN REGULAR(HUMULIN R)HUM 100 UNIT/ML VIAL SQ PRN (22:58)
[2019-03-30] VITALS (16 sets, daily range): BP systolic 129–154; BP diastolic 59–73
[2019-03-30] MEDS: IPRATROPIUM NEB FS 0.5 MG/2.5 ML AMPUL.NEB NEB SCH ×6 (02:48→23:42)
[2019-03-30] MEDS: ALBUTEROL FS 2.5 MG/0.5 ML VIAL.NEB NEB SCH ×6 (02:48→23:42)
--- NOTE | 2019-03-30 07:01 | NUR ---
RN CLOSING NOTES PATIENT IS CURRENTLY ASLEEP, EASILY AWAKENED. ON OXYGEN 3LPM VIA NASAL CANNULA, TOLERATING WELL. A/O X 3 WHEN AWAKE. NO SIGNS OF RESPIRATORY DISTRESS, NO SHORTNESS OF BREATH NOTED, RESPIRATIONS EVEN AND UNLABORED. NO SIGNS OF FACIAL GRIMACING INDICATING PAIN OR DISCOMFORT AT THIS TIME. IV SITERUA PICC AND LEFT WRIST 20 G INTACT AND PATENT, NO SIGNS OF INFECTION/INFILTRATION, FLUSHED. PATIENT KEPT CLEAN, DRY AND COMFORTABLE. ALL NEEDS MET ON SHIFT. ALL DUE MEDS GIVEN ORDERED WITH NO ADVERSE EFFECTS. PATIENT TOLERATED BLOOD TRANSFUSION. VITAL SIGNS STABLE. NO ALLERGIC REACTIONS OCCURED. SAFETY PRECAUTIONS IMPLEMENTED; CALL LIGHT WITHIN REACH, BED LOW, BED LOCKED, BILATERAL UPPER SIDE RAILS UP. WILL ENDORSE TO DAY SHIFT NURSE FOR CONTINUITY OF CARE.
[2019-03-30] MEDS: BLOOD SUGAR DIAGNOSTIC 1 EACH STRIP VI SCH ×4 (07:30→22:00)
[2019-03-30] MEDS: PANTOPRAZOLE 40 MG VIAL IV SCH ×2 (08:31→18:02)
[2019-03-30] MEDS: SUCRALFATE 1 G/10 ML UDC GT SCH ×4 (08:31→22:52)
[2019-03-30] MEDS: SERTRALINE HCL 50 MG TABLET PO SCH ×2 (08:35→18:02)
[2019-03-30] MEDS: hydrALAZINE HCL 50 MG TABLET PO SCH ×2 (11:57→18:02)
[2019-03-30] MEDS: MORPHINE SULFATE INJ 2 MG/ML DISP.SYRIN IV PRN (11:58)
[2019-03-30] MEDS: NITROGLYCERIN 30 GM TUBE TOP SCH ×2 (12:18→18:02)
[2019-03-30] MEDS: INSULIN REGULAR, HUMAN 100 UNIT/ML 3 ML VIAL SQ PRN ×2 (12:24→18:05)
--- NOTE | 2019-03-30 19:15 | NUR ---
RN OPENING NOTES: RECEIVED PATIENT IN BED A/O X4, FAMILY MEMBER AT THE BEDSIDE. NO SOB NOTED. TURNED THE PATIENT TO THE RIGHT SIDE. WITH LEFT BUTTOCK SMALL OPEN WOUND NOTED. LEFT HEEL BLANCHABLE REDNESS NOTED BOTH HEELS OFFLOADED WITH PILLOWS. BED IN LOWEST AND LOCKED POSITION. BED ALARM ON. CALL LIGHT WITHIN REACH.
--- NOTE | 2019-03-30 19:30 | NUR ---
PATIENT HAS LEFT ARM REDNESS.
[2019-03-30 23:04] LABS: BASOPHILS % (AUTO) 0.6 % (0.0-2.0); EOSINOPHILS % (AUTO) 0.6 % (0.0-6.0); HEMATOCRIT 27 % (33-45); HEMOGLOBIN 8.7 g/dL (11.5-14.8); LYMPHOCYTES # (AUTO) 0.2 /CMM (0.8-4.8); LYMPHOCYTES % (AUTO) 5.1 % (20.0-44.0); MEAN CORPUSCULAR HGB CONC 33 g/dl (31.0-36.0); MEAN CORPUSCULAR VOLUME 91 fL (82-100); MONOCYTES # (AUTO) 0.5 /CMM (0.1-1.30); MONOCYTES % (AUTO) 10.6 % (2.0-12.0); NEUTROPHILS # (AUTO) 3.9 /CMM (1.8-8.9); NEUTROPHILS % (AUTO) 83.1 % (43.0-81.0); PLATELET COUNT (AUTO) 121 /CMM (150-450); RED BLOOD CELL COUNT(AUTO) 2.93 MIL/uL (4.0-5.2); WHITE BLOOD COUNT (AUTO) 4.7 K/uL (4.3-11.0)
[2019-03-30 23:17] LABS: ALANINE AMINOTRANSFERASE 111 U/L (12-78); ALBUMIN 1.9 g/dL (3.4-5.0); ALKALINE PHOSPHATASE 100 U/L (46-116); ASPARTATE AMINOTRANSFERASE 50 U/L (15-37); BILIRUBIN,TOTAL 0.5 mg/dL (0.2-1.0); CALCIUM, SERUM 8.9 mg/dL (8.5-10.1); CARBON DIOXIDE 28 mmol/L (21-32); CHLORIDE 100 mmol/L (98-107); CREATININE 5.4 mg/dL (0.6-1.3); GLUCOSE 181 mg/dL (74-106); POTASSIUM 3.9 mmol/L (3.5-5.1); SODIUM SERUM 135 mmol/L (136-145); TOTAL PROTEIN, SERUM 6.4 g/dL (6.4-8.2); UREA NITROGEN, BLOOD 46 mg/dL (7-18)
--- NOTE | 2019-03-30 23:20 | NUR ---
PATIENT IS ASLEEP AT THIS TIME.
[2019-03-31] MEDS: MORPHINE SULFATE INJ 2 MG/ML DISP.SYRIN IV PRN ×2 (00:02→22:03)
--- NOTE | 2019-03-31 00:52 | NUR ---
PATIENT REFUSED INSULIN AT THIS TIME.
[2019-03-31 01:21] VITALS: BP 160/87
--- NOTE | 2019-03-31 02:34 | NUR ---
NOTED PATIENT HAS FOAM TAPE ON THE RIGHT FEMORAL AREA, CLEAN AND DRY AND INTACT, NO BLEEDING NOTED.
[2019-03-31 04:00] VITALS: BP 145/66
[2019-03-31] MEDS: ALBUTEROL FS 2.5 MG/0.5 ML VIAL.NEB NEB SCH ×6 (04:14→23:11)
[2019-03-31] MEDS: IPRATROPIUM NEB FS 0.5 MG/2.5 ML AMPUL.NEB NEB SCH ×6 (04:14→23:11)
[2019-03-31 07:14] LABS: BASOPHILS % (AUTO) 0.8 % (0.0-2.0); EOSINOPHILS % (AUTO) 0.3 % (0.0-6.0); HEMATOCRIT 25 % (33-45); HEMOGLOBIN 8.3 g/dL (11.5-14.8); LYMPHOCYTES # (AUTO) 0.2 /CMM (0.8-4.8); LYMPHOCYTES % (AUTO) 4.4 % (20.0-44.0); MEAN CORPUSCULAR HGB CONC 33 g/dl (31.0-36.0); MEAN CORPUSCULAR VOLUME 91 fL (82-100); MONOCYTES # (AUTO) 0.4 /CMM (0.1-1.30); MONOCYTES % (AUTO) 9.3 % (2.0-12.0); NEUTROPHILS # (AUTO) 3.4 /CMM (1.8-8.9); NEUTROPHILS % (AUTO) 85.2 % (43.0-81.0); PLATELET COUNT (AUTO) 117 /CMM (150-450)
--- NOTE | 2019-03-31 07:31 | NUR ---
RN OPENING NOTES RECEIVED PATIENT IN BED, AWAKE. VERBALLY RESPONSIVE AND ABLE TO MAKE NEEDS KNOW. NOTED OF EDEMA ON UPPER AND LOWER EXTREMITIES. DENIES ANY PAIN AT THE MOMENT. R UA PICC LINE INTACT, PATENT AND FLUSHED WELL. NO SIGNS OF INFILTRATION. R CHEST PERM-A CATH. NO SIGNS OF BLEEDING. NO SOB NOTED. IN NO ACUTE DISTRESS. BED ON LOWEST POSITION AND LOCKED. CALL LIGHT WITHIN REACH. WILL CONTINUE TO MONITOR
[2019-03-31 07:37] LABS: CALCIUM, SERUM 8.9 mg/dL (8.5-10.1); CARBON DIOXIDE 26 mmol/L (21-32); CHLORIDE 100 mmol/L (98-107); CREATININE 5.6 mg/dL (0.6-1.3); GLUCOSE 162 mg/dL (74-106); POTASSIUM 3.8 mmol/L (3.5-5.1); SODIUM SERUM 134 mmol/L (136-145); UREA NITROGEN, BLOOD 47 mg/dL (7-18)
--- NOTE | 2019-03-31 07:42 | NUR ---
RN OPENING NOTES RECEIVED PT IN BED, A/O X3. VERBALLY RESPONSIVE AND ABLE TO MAKE NEEDS KNOWN. DENY ANY PAIN OR DISCOMFORT AT THE MOMENT. ON NASAL CANNULA 2L ,SATURATING WELL. NO SOB NOTED. IV ACCESS ON R UA MIDLINE, INTACT, FLUSHED WELL ,NO SIGNS OF INFILTRATION .PERM-A CATH ON R UPPER CHEST, NO SIGNS OF BLEEDING.EDEMA NOTED ON R ARM. BED IN LOW POSITION AND LOCKED. CALL LIGHT WITHIN REACH. WILL CONTINUE TO MONITOR.
--- NOTE | 2019-03-31 07:45 | NUR ---
PHOTOS OF LEFT BUTTOCK OPEN WOUND AND RIGHT BUTTOCK REDNESS TAKEN AND PLACED IN THE CHART, WOUND NURSE SEEN THE PHOTOS.
[2019-03-31] MEDS: BLOOD SUGAR DIAGNOSTIC 1 EACH STRIP VI SCH ×4 (07:48→21:49)
[2019-03-31] MEDS: SUCRALFATE 1 G/10 ML UDC GT SCH ×4 (07:51→21:49)
--- NOTE | 2019-03-31 07:51 | NUR ---
WOUND CARE CONSULT: PT PRESENTS WITH LEFT BUTTOCK INCONTINENCE ASSOCIATED SKIN DAMAGE WITH RASH NOTED TO BUTTOCKS AND PERINEUM WITH SOME PEELING SKIN. PT NOTED TO HAVE GENERALIZED EDEMA. RECOMMENDATIONS MADE FOR SKIN CARE AND PROTECTION. DISCUSSED WITH NURSING STAFF. FIRST STEP LOW AIRLOSS MATTRESS ORDERED. WILL SEE PRN. IN AGREEMENT WITH PLAN OF CARE.
[2019-03-31 08:00] VITALS: BP 137/75
[2019-03-31] MEDS: INSULIN REGULAR, HUMAN 100 UNIT/ML 3 ML VIAL SQ PRN ×3 (08:49→18:03)
[2019-03-31] MEDS: PANTOPRAZOLE 40 MG VIAL IV SCH ×2 (09:30→17:18)
[2019-03-31] MEDS: SERTRALINE HCL 50 MG TABLET PO SCH ×2 (09:30→17:18)
[2019-03-31] MEDS: CLOTRIMAZOLE 1% 15 GM TUBE TP SCH ×2 (09:34→17:19)
[2019-03-31] MEDS: NITROGLYCERIN 30 GM TUBE TOP SCH ×2 (09:35→17:44)
[2019-03-31] MEDS: hydrALAZINE HCL 50 MG TABLET PO SCH ×3 (09:58→17:18)
[2019-03-31] MEDS ORDERED: CLOT15CR35 TP (12:27)
[2019-03-31] MEDS ORDERED: IPRA0.2S9 NEB (12:27)
[2019-03-31] MEDS ORDERED: HYDR-4077 PO (12:27)
[2019-03-31] MEDS ORDERED: SUCR1ORA6 GT (12:27)
[2019-03-31] MEDS ORDERED: ALBU2.5V13 NEB (12:27)
--- NOTE | 2019-03-31 13:24 | NUR ---
RN NOTES FAMILY REQUESTED TO TALK TO MD, PAGED PERSONAL CARE WORKER PREETI MUNIZ. AWAITING TO CALL BACK
--- NOTE | 2019-03-31 15:26 | NUR ---
RN NOTES FAMILY WAS ABLE TO TALKED TO MOTORBOAT MECHANIC INBOARD/OUTBOARD PREETI MUNIZ AND ORDERED STAT ABG, CT HEAD WITHOUT CONTRAST AND VENOUS DOPPLER R ARM .
[2019-03-31 16:00] VITALS: BP 152/92
[2019-03-31] MEDS ORDERED: methylPREDNISolone SOD SUCC 125 MG/2ML VIAL IV ONE (16:00)
[2019-03-31] MEDS ORDERED: MORPHINE SULFATE INJ 2 MG/ML DISP.SYRIN IV ONE (16:20)
--- NOTE | 2019-03-31 17:10 | NUR ---
RN NOTES DR BAEZ ON BEDSIDE, DID THE BONE MARROW BIOPSY.
[2019-03-31 18:19] LABS: BASOPHILS % (AUTO) 0.9 % (0.0-2.0); EOSINOPHILS % (AUTO) 0.5 % (0.0-6.0); HEMATOCRIT 26 % (33-45); HEMOGLOBIN 8.4 g/dL (11.5-14.8); LYMPHOCYTES # (AUTO) 0.2 /CMM (0.8-4.8); LYMPHOCYTES % (AUTO) 4.4 % (20.0-44.0); MEAN CORPUSCULAR HGB CONC 32 g/dl (31.0-36.0); MEAN CORPUSCULAR VOLUME 90 fL (82-100); MONOCYTES # (AUTO) 0.3 /CMM (0.1-1.30); MONOCYTES % (AUTO) 7.6 % (2.0-12.0); NEUTROPHILS # (AUTO) 3.2 /CMM (1.8-8.9); NEUTROPHILS % (AUTO) 86.6 % (43.0-81.0); PLATELET COUNT (AUTO) 117 /CMM (150-450); RED BLOOD CELL COUNT(AUTO) 2.87 MIL/uL (4.0-5.2); WHITE BLOOD COUNT (AUTO) 3.7 K/uL (4.3-11.0)
--- NOTE | 2019-03-31 19:30 | NUR ---
MS RN OPENING NOTE RECEIVED PATIENT IN BED. A/O X3. ON OXYGEN 4L/MIN VIA NASAL CANNULA. RESPIRATIONS ARE EVEN AND UNLABORED. NO S/S SOB NOTED. DENIES PAIN AT THIS TIME. IN NO APPARENT DISTRESS. IV ACCESS IN JUS PIC LINE PATENT AND SALINE LOCKED. RIGHT CHEST PERMACATH IS PRESENT. BED IS LOW AND LOCKED, HOB ELEVATED IN SEMI FOWLERS, SIDE RAILS UP X2, SPECIALTY MATTRESS. FAMILY AT BEDSIDE REQUESTING PUREED FOOD, APPLE SAUCE GIVEN. CALL LIGHT WITHIN REACH. WILL CONTINUE TO MONITOR
--- NOTE | 2019-03-31 19:36 | NUR ---
RN CLOSING NOTES PT IN BED, ASLEEP. IN NO ACUTE DISTRESS NOTED. ON NASAL CANNULA 2L, TOLERATING WELL. R U ARM PICC LINE INTACT, FLUSHED WELL. STILL EDEMA NOTED ON R ARM. DRESSING INTACT ON R HIP BONE MARROW BIOPSY SITE . NO BLEEDING NOTED. ALL NEEDS MET. ENDORSED TO PM NURSE FOR MIKI.
[2019-03-31 20:00] VITALS: BP 152/83
[2019-03-31] MEDS: *INSULIN REGULAR(HUMULIN R)HUM 100 UNIT/ML VIAL SQ PRN (22:02)
--- NOTE | 2019-03-31 22:07 | NUR ---
MS RN NOTE ADMINISTERED PRN MORPHINE 3MG FOR PAIN 9/0 FOR GENERALIZED PAIN. WILL CONTINUE TO MONITOR. WASTE WITNESSED BY ETHEL MANDUJANO. PLACED IN RX DESTROYER.
[2019-04-01] MEDS: ALBUTEROL FS 2.5 MG/0.5 ML VIAL.NEB NEB SCH ×4 (03:57→15:27)
[2019-04-01] MEDS: IPRATROPIUM NEB FS 0.5 MG/2.5 ML AMPUL.NEB NEB SCH ×4 (03:57→15:27)
--- NOTE | 2019-04-01 06:22 | NUR ---
MS RN CLOSING NOTE PATIENT IN BED. A/O X3. ON OXYGEN 4L/MIN VIA NASAL CANNULA. RESPIRATIONS ARE EVEN AND UNLABORED. NO SOB NOTED. MANAGED PAIN WITH MORPHINE 3MG. IV ACCESS MAINTAINED IN JUS PIC LINE IS MAINTAINED AND SALINE LOCKED. RIGHT CHEST PERMACATH IS MAINTAINED. BED IS LOW AND LOCKED, HOB ELEVATED IN HIGH FOWLERS, SIDE RAILS UP X2, SPECIALTY MATTRESS. PATIENT REFUSED TO BE TURNED Q2HR. DID NOT WANT TO BE CHECKED IF SHE WAS SOILED, STATED SHE WILL USE CALL LIGHT IF NEEDED, ASKED MULTIPLE TIMES BUT STILL REFUSED. CALL LIGHT WITHIN REACH. WILL ENDORSE TO NEXT SHIFT
[2019-04-01] MEDS: BLOOD SUGAR DIAGNOSTIC 1 EACH STRIP VI SCH ×3 (07:42→17:37)
[2019-04-01] MEDS: SUCRALFATE 1 G/10 ML UDC GT SCH ×3 (07:44→17:06)
[2019-04-01 08:00] VITALS: BP 153/88
--- NOTE | 2019-04-01 08:01 | NUR ---
RN OPENING NOTES RECEIVED PATIENT IN BED, AWAKE. VERBALLY RESPONSIVE AND ABLE TO MAKE NEEDS KNOW. NOTED OF EDEMA R UPPER ARM. DENIES ANY PAIN AT THE MOMENT. R UA PICC LINE INTACT, PATENT AND FLUSHED WELL. NO SIGNS OF INFILTRATION. R CHEST PERM-A CATH, NO SIGNS OF BLEEDING. RESPIRATION EVEN AND UNLABORED. NO SOB NOTED. IN NO ACUTE DISTRESS. BED ON LOWEST POSITION AND LOCKED. CALL LIGHT WITHIN REACH. WILL CONTINUE TO MONITOR
[2019-04-01] MEDS: methylPREDNISolone SOD SUCC 40 MG/ML VIAL IV SCH ×3 (08:53→17:06)
[2019-04-01] MEDS: SERTRALINE HCL 50 MG TABLET PO SCH ×2 (08:54→17:06)
[2019-04-01] MEDS: hydrALAZINE HCL 50 MG TABLET PO SCH ×3 (08:54→17:07)
[2019-04-01] MEDS: NITROGLYCERIN 30 GM TUBE TOP SCH ×2 (08:55→17:08)
[2019-04-01] MEDS: PANTOPRAZOLE 40 MG VIAL IV SCH ×2 (08:59→17:06)
[2019-04-01] MEDS: CLOTRIMAZOLE 1% 15 GM TUBE TP SCH ×2 (09:12→17:39)
[2019-04-01] MEDS ORDERED: METH4TAB3 PO (11:42)
[2019-04-01 16:00] VITALS: BP 104/55
[2019-04-01 17:08] VITALS: BP 132/63
[2019-04-01] MEDS: INSULIN REGULAR, HUMAN 100 UNIT/ML 3 ML VIAL SQ PRN (17:43)
--- NOTE | 2019-04-01 18:24 | NUR ---
HOLE DIGGER TRUCK DRIVER NOTES PATIENT IN BED, AWAKE, MEDICALLY STABLE.NO ACUTE DISTRESS NOTED. NO SOB NOTED. SPONGE BATH GIVEN, CHANGED GOWN. DISCHARGE INSTRUCTIONS GIVEN TO PATIENT AND SON AT BEDSIDE. DISCHARGE PACKET GIVEN TO SON. PICC LINE ACCESS REMOVED BY CHARGE NURSE SOON. BELONGINGS LIST FORM SIGNED BY SON. CALLED REPORT TO ASHLEY KIMBROUGH AND SPOKE WITH AMANDA MANDUJANO. ALL NEEDS MET AT THE MOMENT.
--- NOTE | 2019-04-01 18:26 | NUR ---
POULTRY TRIMMER NOTES PICKED UP BY AMBULANCE
== END 2019-04-01 18:26 | DRG 871 ==
LOC: ER 14:25 → TELE-TD 18:05 → TELE1 03-17 14:16 → ICU 03-19 01:46 → TELE-TD 03-22 12:52 → TELE1 03-23 12:38 → ICU 03-23 14:05 → TELE-TD 03-25 00:18 → MEDSG1 03-25 11:48
PROVIDERS: ADMIT Internal Medicine; ATTEND Nurse Practitioner Acute Care
PROC: 5A1945Z Respiratory Ventilation, 24-96 Consecutive Hours (ICD-10-PCS; principal; 2019-03-19)
PROC: 0BH17EZ Insertion of Endotracheal Airway into Trachea, Via Natural or Artificial Opening (ICD-10-PCS; 2019-03-19)
PROC: 5A1D70Z Performance of Urinary Filtration, Intermittent, Less than 6 Hours Per Day (ICD-10-PCS; 2019-03-19)
PROC: 02HV33Z Insertion of Infusion Device into Superior Vena Cava, Percutaneous Approach (ICD-10-PCS; 2019-03-20)
PROC: B548ZZA Ultrasonography of Superior Vena Cava, Guidance (ICD-10-PCS; 2019-03-20)
PROC: 30233N1 Transfusion of Nonautologous Red Blood Cells into Peripheral Vein, Percutaneous Approach (ICD-10-PCS; 2019-03-21)
PROC: 0DB68ZX Excision of Stomach, Via Natural or Artificial Opening Endoscopic, Diagnostic (ICD-10-PCS; 2019-03-22)
PROC: 0JHD3XZ Insertion of Tunneled Vascular Access Device into Right Upper Arm Subcutaneous Tissue and Fascia, Percutaneous Approach (ICD-10-PCS; 2019-03-28)
PROC: 05HM33Z Insertion of Infusion Device into Right Internal Jugular Vein, Percutaneous Approach (ICD-10-PCS; 2019-03-28)
PROC: B513YZA Fluoroscopy of Right Jugular Veins using Other Contrast, Guidance (ICD-10-PCS; 2019-03-28)
PROC: 07DR3ZX Extraction of Iliac Bone Marrow, Percutaneous Approach, Diagnostic (ICD-10-PCS; 2019-03-31)
DX: A40.9 Streptococcal sepsis, unspecified (principal); J15.6 Pneumonia due to other Gram-negative bacteria; N17.0 Acute kidney failure with tubular necrosis; J96.01 Acute respiratory failure with hypoxia; I21.4 Non-ST elevation (NSTEMI) myocardial infarction; E43 Unspecified severe protein-calorie malnutrition; J96.02 Acute respiratory failure with hypercapnia; R65.21 Severe sepsis with septic shock; J69.0 Pneumonitis due to inhalation of food and vomit; G93.41 Metabolic encephalopathy; I21.A1 Myocardial infarction type 2; J15.4 Pneumonia due to other streptococci; K57.32 Diverticulitis of large intestine without perforation or abscess without bleeding; J98.11 Atelectasis; I13.0 Hypertensive heart and chronic kidney disease with heart failure and stage 1 through stage 4 chronic kidney disease, or unspecified chronic kidney disease; E87.2 Acidosis; E87.1 Hypo-osmolality and hyponatremia; C90.01 Multiple myeloma in remission; D61.818 Other pancytopenia; Z68.27 Body mass index [BMI] 27.0-27.9, adult; Z95.2 Presence of prosthetic heart valve; Z79.899 Other long term (current) drug therapy; Z79.82 Long term (current) use of aspirin; Z96.651 Presence of right artificial knee joint; N18.9 Chronic kidney disease, unspecified; Z79.84 Long term (current) use of oral hypoglycemic drugs; K29.70 Gastritis, unspecified, without bleeding; K20.9 Esophagitis, unspecified; I25.10 Atherosclerotic heart disease of native coronary artery without angina pectoris; F32.9 Major depressive disorder, single episode, unspecified; E87.5 Hyperkalemia; E87.6 Hypokalemia; E78.5 Hyperlipidemia, unspecified; E83.42 Hypomagnesemia; E11.22 Type 2 diabetes mellitus with diabetic chronic kidney disease; I35.0 Nonrheumatic aortic (valve) stenosis; I50.9 Heart failure, unspecified; E86.1 Hypovolemia
CPT/HCPCS: 31720; 36415; 36600; 71045-TC; 76770-TC; 77075-TC; 80048-TC; 80053-TC; 80076-TC; 80202-TC; 81000-TC; 82232; 82272-TC; 82533; 82550-TC; 82784; 82803-TC; 82962-TC; 83605-TC; 83735-TC; 83970; 84100-TC; 84155; 84165; 84484-TC; 85025-TC; 85027-TC; 85610-TC; 85730-TC; 86334; 86706; 86850-TC; 86921-TC; 87040-TC; 87070-TC; 87081-TC; 87086-TC; 87340; 88305-TC; 88313-TC; 88342; 90935-TC; 92526; 92611-TC; 93307-TC; 93971-TC; 94002-TC; 94003-TC; 94640-TC; 94760-TC; 94799-TC; 97110-TC; 97112-TC; 97530-TC; A4217; A6403; C1750; C1751; C9113; G0378; J0696; J1644; J1815; J2185; J2270; J2405; J2543; J2704; J2920; J2930; J3010; J3370; J3475; J3490; J7030; J7040; J7050; J7060; P9016-BL

== ENCOUNTER 2019-04-26 16:40 | Inpatient (IN) | payer MEDICARE ==
[2019-04-25 20:30] VITALS: BP 101/56
[~2019-04-26] VITALS: Ht 165.1 cm; Wt 106.6 kg
[2019-04-26 00:30] VITALS: BP 92/53
[~2019-04-26 16:40] MED LIST changes: +ALBU2.5V13 NEB; -ASPI-1169 PO; -ATOR10TA PO; -CARV3.122 PO; +CLOT15CR35 TP; -FURO20TA4 PO; +HYDR-4077 PO; +IPRA0.2S9 NEB; -LOSA50TA39 PO; +METH4TAB3 PO; +POLY15DR40 EACHEYE; -RANI150T8 PO; +SUCR1ORA6 GT
--- NOTE | 2019-04-26 16:55 | NUR ---
SENT HERE BY DR TRIPATHI FORFURTHER EVAL/MANAGEMENT OF R FEMUR FX. PATIENT A/OX4, BREATHING EVEN AND UNLABORED, NO SOB NOTED. NEEDS ATTENDED.
[2019-04-26] MEDS ORDERED: ONDANSETRON HCL/PF 4 MG/2 ML VIAL IVP ONE (17:00)
[2019-04-26] MEDS ORDERED: MORPHINE SULFATE INJ 2 MG/ML DISP.SYRIN IV ONE (17:00)
--- NOTE | 2019-04-26 17:10 | NUR ---
RIGHT KNEE IMMOBILIZER IN PLACED.
[2019-04-26] MEDS ORDERED: MORPHINE SULFATE INJ 4 MG/ML DISP.SYRIN ONE (17:11)
[2019-04-26] MEDS ORDERED: ONDANSETRON HCL/PF 4 MG/2 ML VIAL ONE (17:11)
[2019-04-26 17:16] LABS: BASOPHILS % (AUTO) 0.4 % (0.0-2.0); EOSINOPHILS % (AUTO) 1.3 % (0.0-6.0); HEMATOCRIT 27 % (33-45); HEMOGLOBIN 8.6 g/dL (11.5-14.8); LYMPHOCYTES # (AUTO) 0.3 /CMM (0.8-4.8); LYMPHOCYTES % (AUTO) 3.2 % (20.0-44.0); MEAN CORPUSCULAR HGB CONC 32 g/dl (31.0-36.0); MEAN CORPUSCULAR VOLUME 94 fL (82-100); MONOCYTES # (AUTO) 0.5 /CMM (0.1-1.30); MONOCYTES % (AUTO) 5.9 % (2.0-12.0); NEUTROPHILS # (AUTO) 7.4 /CMM (1.8-8.9); NEUTROPHILS % (AUTO) 89.2 % (43.0-81.0); PLATELET COUNT (AUTO) 220 /CMM (150-450); RED BLOOD CELL COUNT(AUTO) 2.87 MIL/uL (4.0-5.2); WHITE BLOOD COUNT (AUTO) 8.2 K/uL (4.3-11.0)
[2019-04-26 17:22] LABS: CALCIUM, SERUM 6.7 mg/dL (8.5-10.1); CARBON DIOXIDE 29 mmol/L (21-32); CHLORIDE 91 mmol/L (98-107); CREATININE 3.8 mg/dL (0.6-1.3); GLUCOSE 125 mg/dL (74-106); POTASSIUM 3.4 mmol/L (3.5-5.1); SODIUM SERUM 130 mmol/L (136-145); UREA NITROGEN, BLOOD 35 mg/dL (7-18)
[2019-04-26] MEDS ORDERED: SENN-261 PO (17:28)
[2019-04-26] MEDS ORDERED: GUAI100S11 PO (17:28)
[2019-04-26] MEDS ORDERED: SERT100T PO (17:28)
[2019-04-26] MEDS ORDERED: ASCO-352 PO (17:28)
[2019-04-26] MEDS ORDERED: MAGN400O6 PO (17:28)
[2019-04-26] MEDS ORDERED: BISA10SU11 RC (17:28)
[2019-04-26] MEDS ORDERED: AMIN30LI2 PO (17:28)
[2019-04-26] MEDS ORDERED: SODI50SP (17:28)
[2019-04-26] MEDS ORDERED: POLY15DR40 EACHEYE (17:28)
[2019-04-26] MEDS ORDERED: OXYC-121 PO (17:28)
[2019-04-26] MEDS ORDERED: METO25TA20 PO (17:28)
[2019-04-26] MEDS ORDERED: ONDA8TAB6 PO (17:28)
[2019-04-26] MEDS ORDERED: DOCU-141 PO (17:28)
[2019-04-26] MEDS ORDERED: INSU100V3 SQ (17:28)
[2019-04-26] MEDS ORDERED: ASPI-1169 PO (17:28)
[2019-04-26] MEDS ORDERED: ALBU2.5V38 IH (17:28)
[2019-04-26] MEDS ORDERED: ZINC1CAP2 PO (17:28)
[2019-04-26] MEDS ORDERED: SUCR1ORA15 PO (17:28)
--- NOTE | 2019-04-26 18:11 | NUR ---
PAGED [facility].
--- NOTE | 2019-04-26 18:39 | NUR ---
Patient is resting comfortably in bed with eyes closed. Easily aroused. VSS
--- NOTE | 2019-04-26 18:45 | NUR ---
PAGED [facility]LECULAR PHYSICIST.
[2019-04-26] MEDS ORDERED: HYDROMORPHONE 1 MG/1 ML DISP.SYRIN ONE (19:05)
--- NOTE | 2019-04-26 19:15 | NUR ---
RECEIVED ISNTRUCTION FROM DR BIRCH, PATIENT IS TO BE NPO AFTER BREAKFAST.
[2019-04-26] MEDS ORDERED: HYDROMORPHONE INJ 0.5 MG/0.5 ML SYRINGE IV ONE (19:30)
--- NOTE | 2019-04-26 19:48 | NUR ---
CALLED SUP FOR TELE BED
--- NOTE | 2019-04-26 19:52 | NUR ---
BED ASSIGNMENT [id number]
[2019-04-26] MEDS ORDERED: POLYVINYL ALCOHOL 15 ML BOTTLE EACHEYE PRN (20:00)
[2019-04-26] MEDS ORDERED: ONDANSETRON HCL/PF 4 MG/2 ML VIAL IVP PRN (20:00)
[2019-04-26] MEDS ORDERED: BISACODYL SUPP (10 MG) 10 MG/SUPP.RECT SUPP.RECT RC PRN (20:00)
[2019-04-26] MEDS: PROSOURCE / PROSTAT (PYXIS) 30 ML UDC PO SCH (20:00)
[2019-04-26] MEDS ORDERED: GUAIFENESIN 300 MG/15 ML UDC PO PRN (20:00)
[2019-04-26] MEDS ORDERED: MAGNESIUM HYDROXIDE 30 ML UDC PO PRN (20:00)
[2019-04-26] MEDS ORDERED: MAG HYDROX/AL HYDROX/SIMETH 30 ML UDC PO PRN (20:00)
[2019-04-26] MEDS ORDERED: Z GUARD REMEDY 2 OZ OINT TP PRN (20:00)
--- NOTE | 2019-04-26 20:08 | NUR ---
DOZIER CATHETER FR16 INSERTED VIA STERILE TECHNIQUE, URINE SAMPLE SENT TO LAB.
--- NOTE | 2019-04-26 20:17 | NUR ---
REPORT GIVEN TO HARSHAD MANDUJANO FOR MIKI.
[2019-04-26 20:30] VITALS: BP 101/56
--- NOTE | 2019-04-26 20:31 | NUR ---
PATIENT TRANSFERRED TO ROOM 309-1 VIA ACLS PROTOCOL. NO DISTRESS NOTED. KEPT COMFORTABLE. ENDORSED TO HARSHAD MANDUJANO/DALI MANDUJANO.
[2019-04-26 21:44] LABS: APPEARANCE,URINE CLOUDY (CLEAR); BILIRUBIN,URINE NEGATIVE (NEGATIVE); BLOOD, URINE 3+ Ery/uL (NEGATIVE); COLOR,URINE YELLOW (YELLOW); PROTEIN,URINE 4+ mg/dl (NEGATIVE); UGLUCOSE NEGATIVE (NEGATIVE)
[2019-04-26 21:45] LABS: KETONES,URINE TRACE (NEGATIVE); LEUKOCYTE ESTERASE ,URINE 2+ (NEGATIVE); NITRITE, URINE NEGATIVE (NEGATIVE); UROBILINOGEN,URINE 0.2 EU/dL (0.2)
[2019-04-26 21:50] LABS: BACTERIA,URINE 2+ /HPF (None Seen); SQUAMOUS EPITHELIAL CELL,UR Few /HPF (None Seen); WBC,URINE TOO NUMEROUS TO COUN /HPF (0-3)
[2019-04-26] MEDS: SENNOSIDES 8.6 MG TABLET PO SCH (21:53)
[2019-04-26] MEDS: SUCRALFATE 1 G/10 ML UDC PO SCH (21:53)
[2019-04-27 00:01] VITALS: BP 92/53
[2019-04-27] MEDS: ACETAMINOPHEN 325 MG TABLET PO PRN ×2 (01:05→06:27)
[2019-04-27 04:00] VITALS: BP 82/50
[2019-04-27 04:30] VITALS: BP 82/50
--- NOTE | 2019-04-27 04:41 | NUR ---
SIZER HAND NOTES PATIENT'S BP: 82/50, MANUALLY BP: 86/54. PATIENT STATES 10/10 PAIN LEVEL DUE TO RIGHT FEMUR FRACTURE. SPOKE WITH DR. TAYLOR OVER THE PHONE AND NOTIFIED PATIENT STATUS, AND ORDERED IV BOLUS 500mls x ONE. DR. TAYLOR VERBALIZED, IF BP STABLE POST IV BOLUS CONTINUE IV FLUIDS NS AT 75mls/hr. WILL CONTINUE TO MONITOR PATIENT.
[2019-04-27] MEDS ORDERED: IV NS 0.9% 500 ML IV ONE (05:00)
[2019-04-27 06:40] LABS: BASOPHILS % (AUTO) 0.1 % (0.0-2.0); EOSINOPHILS % (AUTO) 1.2 % (0.0-6.0); HEMATOCRIT 23 % (33-45); HEMOGLOBIN 7.5 g/dL (11.5-14.8); LYMPHOCYTES # (AUTO) 0.2 /CMM (0.8-4.8); LYMPHOCYTES % (AUTO) 2.5 % (20.0-44.0); MEAN CORPUSCULAR HGB CONC 33 g/dl (31.0-36.0); MEAN CORPUSCULAR VOLUME 92 fL (82-100); MONOCYTES # (AUTO) 0.5 /CMM (0.1-1.30); MONOCYTES % (AUTO) 5.6 % (2.0-12.0); NEUTROPHILS # (AUTO) 8.8 /CMM (1.8-8.9); NEUTROPHILS % (AUTO) 90.6 % (43.0-81.0); PLATELET COUNT (AUTO) 206 /CMM (150-450); RED BLOOD CELL COUNT(AUTO) 2.51 MIL/uL (4.0-5.2); WHITE BLOOD COUNT (AUTO) 9.7 K/uL (4.3-11.0)
[2019-04-27 06:52] LABS: CHOLESTEROL 90 mg/dL (<200); HDL CHOLESTEROL 20 mg/dL (40-60); LDL 50 mg/dL (0-99); THYROID STIMULATING HORMONE 2.531 uIU/mL (0.358-3.74); TRIGLYCERIDES 111 mg/dL (30-150)
[2019-04-27 07:07] LABS: CALCIUM, SERUM 6.7 mg/dL (8.5-10.1); CARBON DIOXIDE 26 mmol/L (21-32); CHLORIDE 90 mmol/L (98-107); GLUCOSE 122 mg/dL (74-106); MAGNESIUM 2.2 mg/dL (1.8-2.4); POTASSIUM 3.4 mmol/L (3.5-5.1); SODIUM SERUM 129 mmol/L (136-145); UREA NITROGEN, BLOOD 41 mg/dL (7-18)
--- NOTE | 2019-04-27 07:12 | NUR ---
LIQUOR RUNNER NOTES PATIENT IN BED RESTING, ALERT AND ORIENTED X 4. PATIENT ON NASAL CANNULA, 2 LITERS, NO SIGNS OF RESPIRATORY DISTRESS PRESENT, WITH EVEN NON-LABORED BREATHING. PATIENT SKIN KEPT CLEAN AND DRY. IV ACCESS ON LAC, IV NS AT 75mls/hr, PER DR. TAYLOR ORDERS. PATIENT BLOOD PRESSURE 91/44 POST IV BOLUS. DOZIER CATHETER IN PLACE, 900 CC OF CLOUDY, MILKY, URINE OUTPUT. PROVIDED COMFORT MEASURES TO PATIENT. PATIENT COMPLAINS OF 10/10 RIGHT LEG AND LOWER BACK BACK, GAVE PO TYLENOL. SAFETY PRECAUTIONS IN PLACE WITH BED IN THE LOWEST POSITION, BED LOCKED, BED ALARM ON, BILATERAL SIDE-RAILS UP, AND CALL LIGHT WITHIN EASY REACH. WILL ENDORSE MIKI TO UPCOMING DAYSHIFT NURSE.
[2019-04-27 08:00] VITALS: BP 80/42
--- NOTE | 2019-04-27 08:00 | NUR ---
MANAGER SUPPORT NOTES PATIENT IN BED RESTING, ALERT AND ORIENTED X 4. PATIENT ON NASAL CANNULA, 2 LITERS, NO SIGNS OF RESPIRATORY DISTRESS PRESENT, WITH EVEN NON-LABORED BREATHING. PATIENT SKIN KEPT CLEAN AND DRY. IV ACCESS ON LAC, IV NS AT 75mls/hr, PT'S SBP 80'S-PREETI DIMASTE,PARALLEL COMPUTING SOFTWARE ENGINEER AWARE.DOZIER CATHETER IN PLACE, WITH CLOUDY, MILKY, URINE OUTPUT. PROVIDED COMFORT MEASURES TO PATIENT. PATIENT COMPLAINS OF 10/10 RIGHT LEG AND LOWER BACK BACK, GAVE PO NORCO. SAFETY PRECAUTIONS IN PLACE WITH BED IN THE LOWEST POSITION, BED LOCKED, BED ALARM ON, BILATERAL SIDE-RAILS UP, AND CALL LIGHT WITHIN EASY REACH.
--- NOTE | 2019-04-27 08:30 | NUR ---
Notified Dr Vincent Heath of pt's low Phosphorus level of 1.0 and low K+ 3.4 with orders and carried out.Pt will have hemodialysis this morning per MD and they will take care of the low potassium level.
[2019-04-27] MEDS: DOCUSATE SODIUM 100 MG CAPSULE PO SCH ×2 (08:50→17:09)
[2019-04-27] MEDS: ASCORBIC ACID 500 MG TABLET PO SCH (08:50)
[2019-04-27] MEDS: ZINC SULFATE 220 MG CAPSULE PO SCH (08:50)
[2019-04-27] MEDS: HYDROCODONE/APAP 5/325MG 1 EACH TABLET PO PRN ×4 (08:50→23:05)
[2019-04-27] MEDS: ASPIRIN 81 MG TAB.CHEW PO SCH (08:51)
[2019-04-27] MEDS: METOPROLOL TARTRATE 25 MG TABLET PO SCH ×2 (08:51→17:00)
[2019-04-27] MEDS: SERTRALINE HCL 50 MG TABLET PO SCH ×2 (08:51→17:09)
[2019-04-27] MEDS: PROSOURCE / PROSTAT (PYXIS) 30 ML UDC PO SCH ×2 (09:01→17:16)
[2019-04-27] MEDS: SUCRALFATE 1 G/10 ML UDC PO SCH ×5 (09:01→21:05)
[2019-04-27] MEDS ORDERED: EPOETIN ALFA (10,000 UNIT) 10,000 UNIT/ML VIAL IV ONE (10:00)
--- NOTE | 2019-04-27 11:00 | NUR ---
PT UNDERGOING HEMODIALYSIS PROCEDURE STILL WITH LOW SBP 80'S.PT WANTED HER DOZIER CATH TO BE REMOVED.EXPLAINED THE IMPORTANCE OF HAVING DOZIER CATHETER SPECIALLY IN HER RT FEMUR FX CONDITION.FAMILY AT THE BEDSIDE.
[2019-04-27] MEDS: Potassium Phosphate meq 11 MEQ in IV D5W 100 ML IV SCH ×3 (11:08→14:06)
--- NOTE | 2019-04-27 13:00 | NUR ---
TRIED TO CHANGE PT'S DIAPER WITH SMALL SOFT BROWN BM NOTED IN AMOUNT.GOOD PERICARE RENDERED.AFLOAT PT'S ANDI HEELS WITH PILLOWS.PT'S RLE IMMOBILIZER IN PLACE.KONSTANTIN RESENDIZ WAS AT THE BEDSIDE REGARDING THE ORIF RT DISTAL FEMUR PROCEDURE.
[2019-04-27] MEDS: BISACODYL SUPP (10 MG) 10 MG/SUPP.RECT SUPP.RECT RC ONE ×2 (13:21→13:50)
[2019-04-27] MEDS ORDERED: POLYETHYLENE GLYCOL 3350 17 GM POWD.PACK PO PRN (13:30)
[2019-04-27] MEDS: MORPHINE SULFATE INJ 2 MG/ML DISP.SYRIN IV PRN ×3 (14:13→21:33)
[2019-04-27 16:21] VITALS: BP 106/46
[2019-04-27] MEDS: CEFTRIAXONE 1 G in IV D5W 50 ML IV SCH (17:10)
[2019-04-27] MEDS: IV NS 0.9% 1,000 ML BAG IV SCH (18:23)
--- NOTE | 2019-04-27 18:56 | NUR ---
PT DENIES ANY PAIN OR DISTRESS.PAIN MGT EFFECTIVE.FOR OCCULT FECAL BLOOD TO COLLECT. WITH ONGOING IVF OF NS AT 75 ML/HR INFUSING WELL.CALL LIGHT PLACED WITHIN REACH.
--- NOTE | 2019-04-27 19:45 | NUR ---
FIRER ELECTRIC LOCOMOTIVE NOTES PATIENT RECEIVED IN BED RESTING. AWAKE AND ORIENTED X 4. PATIENT ACCOMPANIED BY SON AT BEDSIDE. TOLERATING NASAL CANNULA, 2 L, WITH NO SIGNS OF RESPIRATORY DISTRESS, NO SOB, AND WITH EVEN NON-LABORED BREATHING. ON PAVILION CUTTER, WANDERING ATRIAL PACEMAKER, 90'S. PATIENT IV ACCESS IN PLACE AND INTACT. PATIENT DOZIER CATHETER IN PLACE. PROVIDED COMFORT MEASURES TO PATIENT. SAFETY PRECAUTIONS IN PLACE WITH BED IN THE LOWEST POSITION, SEMI-FOWLERS POSITION FOR COMFORT MEASURES, BILATERAL SIDE-RAILS UP, BED LOCKED, BED ALARM ON, AND CALL LIGHT WITHIN EASY REACH. WILL CONTINUE TO MONITOR PATIENT.
[2019-04-27 20:39] VITALS: BP 101/50
[2019-04-27] MEDS: SENNOSIDES 8.6 MG TABLET PO SCH (21:04)
--- NOTE | 2019-04-27 21:33 | NUR ---
CIGARETTE PACKING MACHINE OPERATOR NOTES PATIENT VERBALIZED 10/10 PAIN, LOCATED ON LOWER BACK, ABDOMEN, AND RIGHT LEG. VITALS SIGNS BP: 114/56, RR 20, TEMP: 97.7 O2 SATURATION 97% PULSE: 92. ADMINISTERED MORPHINE IV. WILL REASSESS PATIENT PAIN LEVEL, AND WILL CONTINUE TO MONITOR PATIENT.
--- NOTE | 2019-04-27 23:05 | NUR ---
NETWORKING TECHNICIAN NOTES PATIENT STATES PAIN LEVEL 9/10. PROVIDED COMFORT MEASURES TO PATIENT. STATES HER PAIN IS LOCATED IN HER LOWER BACK AND RIGHT LEG. ADMINISTERED NORCO 5/325mg. BP 103/53. WILL CONTINUE TO MONITOR PATIENT AND REASSESS PATIENT PAIN LEVEL.
[2019-04-28] VITALS: BP 103/53
[2019-04-28 04:00] VITALS: BP 101/40
[2019-04-28 06:21] LABS: BASOPHILS % (AUTO) 0.1 % (0.0-2.0); EOSINOPHILS % (AUTO) 0.8 % (0.0-6.0); HEMATOCRIT 22 % (33-45); HEMOGLOBIN 7.1 g/dL (11.5-14.8); LYMPHOCYTES # (AUTO) 0.2 /CMM (0.8-4.8); MEAN CORPUSCULAR HGB CONC 33 g/dl (31.0-36.0); MEAN CORPUSCULAR VOLUME 92 fL (82-100); MONOCYTES # (AUTO) 0.6 /CMM (0.1-1.30); MONOCYTES % (AUTO) 5.5 % (2.0-12.0); NEUTROPHILS % (AUTO) 91.6 % (43.0-81.0); PLATELET COUNT (AUTO) 216 /CMM (150-450); RED BLOOD CELL COUNT(AUTO) 2.39 MIL/uL (4.0-5.2); WHITE BLOOD COUNT (AUTO) 10.9 K/uL (4.3-11.0)
[2019-04-28 06:33] LABS: CALCIUM, SERUM 6.8 mg/dL (8.5-10.1); CARBON DIOXIDE 28 mmol/L (21-32); CHLORIDE 96 mmol/L (98-107); CREATININE 3.2 mg/dL (0.6-1.3); GLUCOSE 133 mg/dL (74-106); POTASSIUM 3.5 mmol/L (3.5-5.1); SODIUM SERUM 133 mmol/L (136-145); UREA NITROGEN, BLOOD 36 mg/dL (7-18)
[2019-04-28 06:40] LABS: FERRITIN 430 ng/mL (8-388)
--- NOTE | 2019-04-28 06:44 | NUR ---
CRIMINAL COURT JUDGE NOTES PATIENT IN BED RESTING, AND IS EASILY AWAKEN BY NAME AND LIGHT TOUCH. ALERT AND ORIENTED X 4. PATIENT ON 2L NASAL CANNULA, WITH NO SIGNS OF RESPIRATORY BREATHING, NO SIGNS OF SOB, WITH EVEN NON-LABORED BREATHING. PATIENT ON DIRECTOR FUNDS DEVELOPMENT, NORMAL SINUS RHYTHM WITH MULTI-FOCAL PVC's, HEART RATE 70-80's. PATIENT'S IV ACCESS INTACT AND PATENT, RUNNING NS AT 75ml/hr. PATIENT DOZIER CATHETER IN PLACE. AT THIS TIME PATIENT PRESENTS NO SIGNS OF PAIN OR DISCOMFORT, PROVIDED COMFORT MEASURES TO THE PATIENT. SAFETY PRECAUTIONS IN PLACE WITH BED LOCKED, BED ALARM ON, BED IN THE LOWEST POSITION, BILATERAL SIDE-RAILS UP, AND CALL LIGHT WITHIN EASY REACH OF THE PATIENT. WILL ENDORSE MIKI TO UPCOMING DAYSHIFT NURSE.
[2019-04-28 07:08] LABS: IRON, SERUM 43 ug/dl (50-175); TOTAL IRON BINDING CAPACITY 117 ug/dl (250-450)
[2019-04-28] MEDS: SUCRALFATE 1 G/10 ML UDC PO SCH ×4 (07:30→21:41)
[2019-04-28] MEDS: ASCORBIC ACID 500 MG TABLET PO SCH (07:41)
[2019-04-28] MEDS: PROSOURCE / PROSTAT (PYXIS) 30 ML UDC PO SCH ×2 (07:41→17:30)
[2019-04-28] MEDS: ASPIRIN 81 MG TAB.CHEW PO SCH (07:41)
[2019-04-28] MEDS: DOCUSATE SODIUM 100 MG CAPSULE PO SCH ×2 (07:41→17:29)
[2019-04-28] MEDS: METOPROLOL TARTRATE 25 MG TABLET PO SCH (07:41)
[2019-04-28] MEDS: ZINC SULFATE 220 MG CAPSULE PO SCH (07:41)
[2019-04-28] MEDS: SERTRALINE HCL 50 MG TABLET PO SCH ×2 (07:42→17:30)
--- NOTE | 2019-04-28 07:45 | NUR ---
DRUG SAFETY ASSOCIATE NOTES RECEIVED PATIENT RESTING IN BED, ALERT AND ORIENTED X 4. PATIENT ON NASAL CANNULA, 2 LITERS, NO S/S OF RESPIRATORY DISTRESS PRESENT, WITH EVEN NON-LABORED BREATHING. SKIN KEPT CLEAN AND DRY. IV ACCESS ON LAC # 20, IV NS AT 75mls/hr. DOZIER CATHETER IN PLACE DRAINING FREEELY VIA BEDSIDE VIA GRAVITY. PROVIDED COMFORT MEASURES TO PATIENT. SAFETY PRECAUTIONS IN PLACE WITH BED IN THE LOWEST POSITION, BED LOCKED, BED ALARM ON, BILATERAL SIDE-RAILS UP, AND CALL LIGHT WITHIN EASY REACH.
[2019-04-28 08:20] VITALS: BP 104/54
[2019-04-28] MEDS: PANTOPRAZOLE 40 MG VIAL IV SCH ×2 (09:25→17:30)
--- NOTE | 2019-04-28 11:09 | NUR ---
WOUND CARE CONSULT: PT PRESENTS WITH RT LOWER EXTREMITY IMMOBILIZER, LEFT BUTTOCK INCONTINENCE ASSOCIATED SKIN DAMAGE, PINK DRY LESIONS TO MIDBACK AND RT WAIST AREA, AND SACRAL INTACT DEEP TISSUE INJURY, PRESENT ON ADMISSION. RECOMMENDATIONS MADE FOR SKIN PROTECTION. DISCUSSED WITH NURSING STAFF. SURGICAL CONSULT REQUESTED FROM DR NOGUEIRA. WILL SEE PRN. WELDON IN AGREEMENT WITH PLAN OF CARE. FIRST STEP LOW AIRLOSS MATTRESS ON ORDER. PT IS NPO. Addendum: 04/28/19 at 1111 by MARCELA CHAMBERS WNDNU Amended: Links added.
[2019-04-28 12:00] VITALS: BP 112/56
[2019-04-28] MEDS: Sodium Phosphate 15 MMOL in IV D5W 250 ML IV SCH ×2 (12:46→17:53)
[2019-04-28] MEDS: HYDROGEL DRESSING 90 GM TUBE TP SCH (13:08)
[2019-04-28] MEDS: POLYETHYLENE GLYCOL 3350 17 GM POWD.PACK PO SCH (13:08)
[2019-04-28] MEDS: MORPHINE SULFATE INJ 2 MG/ML DISP.SYRIN IV PRN ×3 (13:14→23:59)
[2019-04-28] MEDS: CEFTRIAXONE 1 G in IV D5W 50 ML IV SCH (15:01)
[2019-04-28 16:08] VITALS: BP 132/69
[2019-04-28 16:36] LABS: OCCULT BLOOD STOOL NEGATIVE (NEGATIVE)
--- NOTE | 2019-04-28 17:29 | NUR ---
PT GOT UPSET BECAUSE I DIDN'T WAKE HER UP 1 HOUR AFTER I GAVE THE MORPHINE IV EARLIER.EXPLAINED TO THE PT THAT WE DON'T WAKE UP PT JUST TO GIVE THEM PAIN MEDS SPECIALLY IF THEY ARE SLEEPING COMFORTABLY. PT STATED THAT SHE WILL FILE A COMPLAINT.
--- NOTE | 2019-04-28 17:51 | NUR ---
SPOKE TO KAYLEIGH ÁLVAREZ REGARDING ADVANCING PT'S DIET AND PREETI STATED TO ADVANCE IT TO RENAL IF PT'S OCCULT BLOOD IN STOOL COMES OUT NEGATIVE WHICH CAME OUT NEGATIVE.
--- NOTE | 2019-04-28 18:11 | NUR ---
PT STARTED COUGHING TERRIBLY WHEN FED WITH MECH SOFT FINELY CHOPPED DIET CHANGED PT'S DIET BACK TO PUREED.NOTIFIED KAYLEIGH ÁLVAREZ AND MADE AWARE. Addendum: 04/28/19 at 1814 by VON MILLER RN PLS IGNORE ABOVE NOTES-DOCUMENTED ON THE WRONG PT.
[2019-04-28 18:53] LABS: HEMOGLOBIN 8.1 g/dL (11.5-14.8)
--- NOTE | 2019-04-28 19:20 | NUR ---
FINANCIAL SERVICES COUNSELOR NOTES PATIENT RESTING COMFORTABLY IN BED. PATIENT ON NASAL CANNULA @2 LITERS, NO SHORTNESS OF BREATH SEEN. IV ACCESS ON LAC # 20 WITH IV OF NS AT 75mls/hr LOUIE WELL. DOZIER CATHETER IN PLACE DRAINING FREELY VIA BEDSIDE VIA GRAVITY.SAFETY PRECAUTIONS IN PLACE WITH BED IN THE LOWEST POSITION, BED LOCKED, BED ALARM ON, BILATERAL SIDE-RAILS UP, AND CALL LIGHT WITHIN EASY REACH. NO S/S OF ACUTE DISTRESS.
--- NOTE | 2019-04-28 19:20 | NUR ---
GROOVER AND TURNER RECEIVED IN BED RESTING. ASLEEP AND EASILY AWAKEN, STABLE AND NOT IN DISTRESS, RLE IMMOBILIZER IN PLACE. SAFETY MEASURES IN PLACE. WILL CONTINUE TO MONITOR. Addendum: 04/28/19 at 2021 by ART MENA RN ON CARDIAC MONITORING SR 92 HR IN TELE MONITOR.
[2019-04-28 20:00] VITALS: BP 96/53
[2019-04-28] MEDS: HYDROCODONE/APAP 5/325MG 1 EACH TABLET PO PRN (20:38)
[2019-04-28] MEDS: IV NS 0.9% 1,000 ML BAG IV SCH (21:41)
[2019-04-28] MEDS: SENNOSIDES 8.6 MG TABLET PO SCH (21:41)
--- NOTE | 2019-04-28 23:00 | NUR ---
PORTAINER OPERATOR SPECIAL MATTRESS DELIVERED. PT REFUSED TO USE AIR MATTRESS DESPITE EXPLAINING RISKS AND BENEFITS OFFERED 3 TIMES PT REFUSING TO CHANGE GEL MATTRESS TO AURORA MATTRESS. PT VERBALIZED "I DONT LIKE AIR MATTRESS. ITS NOT COMFORTABLE I REFUSE TO CHANGE MY MATTRESS".
[2019-04-29] VITALS (8 sets, daily range): BP systolic 86–117; BP diastolic 54–59
[2019-04-29] MEDS: HYDROCODONE/APAP 5/325MG 1 EACH TABLET PO PRN ×3 (02:56→17:03)
[2019-04-29] MEDS: MORPHINE SULFATE INJ 2 MG/ML DISP.SYRIN IV PRN ×2 (05:27→21:21)
--- NOTE | 2019-04-29 06:17 | NUR ---
FORMULA CLERK NO SIGNIFICANT CHANGES, PT SLEPT WELL. MONITORED FOR PAIN, PRN PAIN MEDICATION WITH RELIEF. RLE IMMOBILIZER AT ALL TIMES. IV SITES NO S/S OF INFILTRATION, NEEDS ATTENDED AND ANTICIPATED. KEPT CLEAN, DRY AND COMFORTABLE. AM CARE RENDERED. ON CARDIAC MONITORING. SR 89 IN TELE MONITOR, PT REFUSING AURORA MATTRESS, DOZIER DRAINING VIA GRAVITY GOOD FC CARE PROVIDED. ASSISTED REPOSITION EVERY 2 HOURS. SAFETY MEASURES AT ALL TIMES. WILL ENDORSE POC TO NEXT SHIFT.
[2019-04-29 06:48] LABS: BASOPHILS # (AUTO) 0.1 /CMM (0.0-0.2); BASOPHILS % (AUTO) 0.5 % (0.0-2.0); EOSINOPHILS % (AUTO) 2.7 % (0.0-6.0); HEMATOCRIT 22 % (33-45); LYMPHOCYTES # (AUTO) 0.2 /CMM (0.8-4.8); LYMPHOCYTES % (AUTO) 1.9 % (20.0-44.0); MEAN CORPUSCULAR HGB CONC 32 g/dl (31.0-36.0); MEAN CORPUSCULAR VOLUME 92 fL (82-100); MONOCYTES # (AUTO) 0.5 /CMM (0.1-1.30); MONOCYTES % (AUTO) 4.8 % (2.0-12.0); NEUTROPHILS % (AUTO) 90.1 % (43.0-81.0); PLATELET COUNT (AUTO) 188 /CMM (150-450); RED BLOOD CELL COUNT(AUTO) 2.36 MIL/uL (4.0-5.2)
--- NOTE | 2019-04-29 06:51 | NUR ---
LAB CALLED RELAYED HGB OF 7.0 WILL ENDORSE NEXT SHIFT. 1 PRBC WITH HD TODAY
[2019-04-29 07:48] LABS: CALCIUM, SERUM 6.2 mg/dL (8.5-10.1); CARBON DIOXIDE 21 mmol/L (21-32); CHLORIDE 95 mmol/L (98-107); CREATININE 3.6 mg/dL (0.6-1.3); GLUCOSE 127 mg/dL (74-106); POTASSIUM 3.7 mmol/L (3.5-5.1); SODIUM SERUM 131 mmol/L (136-145); UREA NITROGEN, BLOOD 44 mg/dL (7-18)
--- NOTE | 2019-04-29 08:00 | NUR ---
PALLET SORTER NOTES RECEIVED PATIENT RESTING IN BED, ALERT AND ORIENTED X 4. PATIENT ON NASAL CANNULA, 2 LITERS, NO S/S OF RESPIRATORY DISTRESS PRESENT, WITH EVEN NON-LABORED BREATHING. SKIN KEPT CLEAN AND DRY. IV ACCESS ON LAC # 20, IV NS AT 75mls/hr. DOZIER CATHETER IN PLACE DRAINING YELLOW URINE VIA BEDSIDE VIA GRAVITY. PROVIDED COMFORT MEASURES TO PATIENT. SAFETY PRECAUTIONS IN PLACE WITH BED IN THE LOWEST POSITION, BED LOCKED, BED ALARM ON, BILATERAL SIDE-RAILS UP, AND CALL LIGHT WITHIN EASY REACH.
[2019-04-29] MEDS: PANTOPRAZOLE 40 MG VIAL IV SCH ×2 (08:24→17:02)
[2019-04-29] MEDS: DOCUSATE SODIUM 100 MG CAPSULE PO SCH ×2 (08:25→17:02)
[2019-04-29] MEDS: ASCORBIC ACID 500 MG TABLET PO SCH (08:25)
[2019-04-29] MEDS: SUCRALFATE 1 G/10 ML UDC PO SCH ×4 (08:25→21:21)
[2019-04-29] MEDS: ZINC SULFATE 220 MG CAPSULE PO SCH (08:25)
[2019-04-29] MEDS: FERROUS SULFATE (325 MG) 325 MG/TAB TABLET PO SCH ×2 (08:25→17:03)
[2019-04-29] MEDS: PROSOURCE / PROSTAT (PYXIS) 30 ML UDC PO SCH ×2 (08:25→17:04)
[2019-04-29] MEDS: ASPIRIN 81 MG TAB.CHEW PO SCH (08:25)
[2019-04-29] MEDS: SERTRALINE HCL 50 MG TABLET PO SCH ×2 (08:25→17:03)
[2019-04-29] MEDS: POLYETHYLENE GLYCOL 3350 17 GM POWD.PACK PO SCH (08:25)
--- NOTE | 2019-04-29 08:30 | NUR ---
KAYLEIGH ÁLVAREZ STATED THAT THE PT IS CLEARED FOR SX AND WANTS TO BE NOTIFIED SCHEDULE FOR SX SO HE CAN ORDER 1 UNIT PRBC PRIOR TO SX.
--- NOTE | 2019-04-29 09:00 | NUR ---
PT REFUSED TO BE TURNED AND REPOSITIONED AND REFUSED TO BE TRANSFERRED TO THE [facility] MATTRESS INSPITE OF EXPLAINING THE RISKS AND BENEFITS FOR SKIN CARE MANAGEMENT.
--- NOTE | 2019-04-29 09:06 | NUR ---
STARTED TRANSFUSING 1 UNIT PRBC WITH HEMODIALYSIS PROCEDURE.HGB 7.0. WILL MONITOR FOR ANY ADVERSE REACTIONS AND CHECK PT'S V/S.
--- NOTE | 2019-04-29 09:22 | NUR ---
ONGOING TRANSFUSION OF 1 UNIT PRBC WITH STABLE V/S AND NO ADVERSE REACTIONS NOTED.PT DENIES ANY PAIN OR DISTRESS.WILL CONTINUE TO MONITOR.
--- NOTE | 2019-04-29 09:25 | NUR ---
COMPLETED BLOOD TRANSFUSION OF FIRST UNIT PRBC WITH HEMODIALYSIS PROCEDURE-WITH STABLE V/S.NO ADVERSE REACTION NOTED.PT DENIES ANY PAIN OR DISTRESS.PAIN MGT EFFECTIVE.WILL CONTINUE TO MONITOR.
[2019-04-29] MEDS: HYDROGEL DRESSING 90 GM TUBE TP SCH (09:32)
[2019-04-29] MEDS: IV NS 0.9% 1,000 ML BAG IV SCH (12:04)
[2019-04-29] MEDS: CEFTRIAXONE 1 G in IV D5W 50 ML IV SCH (14:24)
[2019-04-29] MEDS ORDERED: EPOETIN ALFA (10,000 UNIT) 10,000 UNIT/ML VIAL IV ONE (15:00)
[2019-04-29] MEDS: FLUCONAZOLE IN NS 100 MG in PREMIX 1 EA IV SCH ×2 (16:50)
--- NOTE | 2019-04-29 17:12 | NUR ---
PT REFUSED TO BE TURNED AND REPOSITIONED AND REFUSED TO BE TRANSFERRED TO THE [facility] MATTRESS INSPITE OF EXPLAINING THE RISKS AND BENEFITS FOR SKIN CARE MANAGEMENT.
--- NOTE | 2019-04-29 18:55 | NUR ---
CLARIFIED SCHEDULE OF SX TO DR GOLDSTEIN WHO STATED THAT THE SX WILL DEFINITELY BE ON WEDNESDAY AND NOT TOMORROW-KAYLEIGH ÁLVAREZ MADE AWARE.
--- NOTE | 2019-04-29 19:08 | NUR ---
PT SLEEPING COMFORTABLY BUT AROUSABLE WITH NO S/S OF PAIN OR DISTRESS.CALL LIGHT PLACED WITHIN REACH.
--- NOTE | 2019-04-29 19:20 | NUR ---
RECEIVED PT IN BED A/O X 3 [address]ING TV STABLE AND NOT IN DISTRESS. ON CARDIAC MONITORING. SAFETY MEASURES AT ALL TIMES. WILL CONT TO MONITOR.
[2019-04-29] MEDS: SENNOSIDES 8.6 MG TABLET PO SCH (21:21)
[2019-04-30] VITALS (7 sets, daily range): BP systolic 111–134; BP diastolic 56–74
[2019-04-30] MEDS: HYDROCODONE/APAP 5/325MG 1 EACH TABLET PO PRN ×5 (00:43→21:57)
[2019-04-30] MEDS: IV NS 0.9% 1,000 ML BAG IV SCH ×2 (02:20→18:12)
[2019-04-30] MEDS: MORPHINE SULFATE INJ 2 MG/ML DISP.SYRIN IV PRN ×3 (05:08→17:02)
[2019-04-30 06:11] LABS: BASOPHILS % (AUTO) 0.1 % (0.0-2.0); EOSINOPHILS % (AUTO) 1.8 % (0.0-6.0); HEMATOCRIT 28 % (33-45); HEMOGLOBIN 8.9 g/dL (11.5-14.8); LYMPHOCYTES # (AUTO) 0.3 /CMM (0.8-4.8); LYMPHOCYTES % (AUTO) 3.7 % (20.0-44.0); MEAN CORPUSCULAR HGB CONC 32 g/dl (31.0-36.0); MEAN CORPUSCULAR VOLUME 92 fL (82-100); MONOCYTES # (AUTO) 0.4 /CMM (0.1-1.30); MONOCYTES % (AUTO) 4.8 % (2.0-12.0); NEUTROPHILS # (AUTO) 8.1 /CMM (1.8-8.9); NEUTROPHILS % (AUTO) 89.6 % (43.0-81.0); PLATELET COUNT (AUTO) 213 /CMM (150-450); RED BLOOD CELL COUNT(AUTO) 3.04 MIL/uL (4.0-5.2)
[2019-04-30 06:24] LABS: CALCIUM, SERUM 6.1 mg/dL (8.5-10.1); CARBON DIOXIDE 27 mmol/L (21-32); CHLORIDE 97 mmol/L (98-107); CREATININE 3.2 mg/dL (0.6-1.3); GLUCOSE 136 mg/dL (74-106); POTASSIUM 3.3 mmol/L (3.5-5.1); SODIUM SERUM 132 mmol/L (136-145); UREA NITROGEN, BLOOD 37 mg/dL (7-18)
--- NOTE | 2019-04-30 06:32 | NUR ---
STAFF ANTISUBMARINE OFFICER ASLEEP AND EASILY AWAKEN. ON CARDIAC MONITORING.WAP 92 HR IN TELE MONITOR, SLEPT WELL, ON 2LPM VIA NC O2 SAT 97%.RLE IMMOBILIZER AT ALL TIMES. MONITORED FOR PAIN, PRN PAIN MEDICATION WITH RELIEF. NEEDS ATTENDED AND ANTICIPATED. KEPT CLEAN, DRY AND COMFORTABLE. ASSISTED REPOSITION EVERY 2 HOURS. OFFLOAD HEELS AND ELBOWS AT ALL TIMES. AM CARE RENDERED. PT KEPT ON REFUSING AURORA MATTRESS, GOOD FC CARE PROVIDED. SAFETY MEASURES AT ALL TIMES. WILL ENDORSE POC TO NEXT SHIFT.
--- NOTE | 2019-04-30 07:35 | NUR ---
FOOD WRITER OPENING NOTES RECEIVED PT IN BED, AWAKE, A/O X3-4. PT ON SUPPLEMENTARY OXYGEN AT 2L VIA NC, WITH NO ACUTE RESPIRATORY DISTRESS NOTED. PT REPORTED PAIN ON RIGHT HIP/LEG, RN TO LOOK FOR PRN MED. IVF NS AT 75ML/HR TO LEFT WRIST G22, FLUID INFUSING WELL. PT COMFORTABLE IN BED AT THIS TIME. PT'S BED IN LOWEST, LOCKED POSITION WITH SRX3. CALL LIGHT KEPT WITHIN REACH. WILL CONTINUE PLAN OF CARE.
--- NOTE | 2019-04-30 07:50 | NUR ---
PRESCHOOL ASSOCIATE TEACHER NOTES RECEIVED PT ON TELEMONITORING, SR, HR 89.
[2019-04-30] MEDS: ASPIRIN 81 MG TAB.CHEW PO SCH (08:04)
[2019-04-30] MEDS: POLYETHYLENE GLYCOL 3350 17 GM POWD.PACK PO SCH (08:04)
[2019-04-30] MEDS: SUCRALFATE 1 G/10 ML UDC PO SCH ×4 (08:04→21:50)
[2019-04-30] MEDS: PANTOPRAZOLE 40 MG VIAL IV SCH ×2 (08:05→17:01)
[2019-04-30] MEDS: ASCORBIC ACID 500 MG TABLET PO SCH (08:05)
[2019-04-30] MEDS: FERROUS SULFATE (325 MG) 325 MG/TAB TABLET PO SCH ×2 (08:05→17:01)
[2019-04-30] MEDS: DOCUSATE SODIUM 100 MG CAPSULE PO SCH ×2 (08:05→17:01)
[2019-04-30] MEDS: SERTRALINE HCL 50 MG TABLET PO SCH ×2 (08:07→17:01)
[2019-04-30] MEDS: ZINC SULFATE 220 MG CAPSULE PO SCH (08:07)
--- NOTE | 2019-04-30 08:10 | NUR ---
MEDICAL UNDERWRITER NOTES SEEN AND EVALUATED BY HOSPITALIST/CN, ADVISED FOR PT TO KEEP NPO POST MIDNIGHT. CN TO COORDINATE WITH PA/CC AND DR. GOLDSTEIN REGARDING PT PREPARING FOR SURGERY VENUS. PT AWARE OF THE PLAN.
[2019-04-30] MEDS: PROSOURCE / PROSTAT (PYXIS) 30 ML UDC PO SCH ×2 (08:15→17:01)
[2019-04-30] MEDS: HYDROGEL DRESSING 90 GM TUBE TP SCH (08:15)
--- NOTE | 2019-04-30 08:30 | NUR ---
FIELD COUNSEL NOTES PT REFUSED TO BE TURNED AND REPOSITIONED DUE TO RIGHT HIP/LEG PAIN, AND PILLOW AT RIGHT LOWER LEG TO FLOAT. RISK AND BENEFITS EXPLAINED. PT ALERT AND AWARE OF SITUATION WELL.
[2019-04-30 09:00] LABS: ALBUMIN 1.5 g/dL (3.4-5.0); BILIRUBIN,DIRECT 0.1 mg/dL (0.0-0.2); BILIRUBIN,TOTAL 0.4 mg/dL (0.2-1.0); TOTAL PROTEIN, SERUM 6.1 g/dL (6.4-8.2)
--- NOTE | 2019-04-30 10:35 | NUR ---
COMPLEX HUMAN RESOURCES MANAGER NOTES PT REFUSED TO BE TURNED AND REPOSITIONED DUE TO RIGHT HIP/LEG PAIN, AND PILLOW AT RIGHT LOWER LEG TO FLOAT. RISK AND BENEFITS EXPLAINED. PT ALERT AND AWARE OF SITUATION WELL.
--- NOTE | 2019-04-30 12:15 | NUR ---
FORESTRY ENGINEER NOTES PT REFUSED TO BE TURNED AND REPOSITIONED DUE TO RIGHT HIP/LEG PAIN, AND PILLOW AT RIGHT LOWER LEG TO FLOAT. RISK AND BENEFITS EXPLAINED. PT INSISTED TO REFUSE. PT ALERT AND AWARE OF SITUATION WELL.
--- NOTE | 2019-04-30 12:45 | NUR ---
COPY HOLDER NOTES PT REQUESTED FOR MORPHINE FOR RIGHT HIP/LEG PAIN OF 10/10, GIVEN MEDICINE ORDERED.
--- NOTE | 2019-04-30 14:02 | NUR ---
CRIME ANALYST NOTES PT REPORTED MORPHINE HELPED HER BUT STILL NEEDS NORCO IN ADDITION TO IT. PT STATED PAIN OF 5-7/10, PRN MNORCO GIVEN ORDERED. WILL CONTINUE TO MONITOR.
[2019-04-30] MEDS: FLUCONAZOLE IN NS 100 MG in PREMIX 1 EA IV SCH ×2 (14:07)
--- NOTE | 2019-04-30 14:30 | NUR ---
COMMUNICATIONS LEAD NOTES PT REFUSED TO BE TURNED AND REPOSITIONED DUE TO RIGHT HIP/LEG PAIN, AND PILLOW AT RIGHT LOWER LEG TO FLOAT. RISK AND BENEFITS EXPLAINED. SON/TAMMY PRESENT AT BEDSIDE. PT ALERT AND AWARE OF SITUATION WELL.
--- NOTE | 2019-04-30 15:00 | NUR ---
MANAGER HEMATOLOGY NOTES HOSPITALIST/CN MADE AWARE REGARDING POTASSIUM LEVEL OF 3.3. PER PHARMACY CAN'T REPLACE ELECTROLYTES FOR HD PATIENTS. AWAITING FOR RESPONSE.
--- NOTE | 2019-04-30 16:25 | NUR ---
TOOLMAN NOTES PT REFUSED TO BE TURNED AND REPOSITIONED DUE TO RIGHT HIP/LEG PAIN, AND PILLOW AT RIGHT LOWER LEG TO FLOAT. RISK AND BENEFITS EXPLAINED. SON/TAMMY PRESENT AT BEDSIDE. PT ALERT AND AWARE OF SITUATION WELL.
--- NOTE | 2019-04-30 18:00 | NUR ---
DEPARTMENT SUPERVISOR NOTES PT REFUSED TO BE TURNED AND REPOSITIONED DUE TO RIGHT HIP/LEG PAIN, AND PILLOW AT RIGHT LOWER LEG TO FLOAT. RISK AND BENEFITS EXPLAINED. SON/TAMMY PRESENT AT BEDSIDE. PT ALERT AND AWARE OF SITUATION WELL.
--- NOTE | 2019-04-30 18:15 | NUR ---
PROCESS AUTOMATION ENGINEER NOTES CONTACTED PA/CC AND HOSPITALIST/CN REGARDING PT'S SON CONCERN ABOUT SURGERY FOR TOMORROW. NO SPECIFIC TIME YET OF SURGERY AND CC/PA STATED "PROBABLY DR GOLDSTEIN WILL DO IT ON WEDNESDAY" SON/TAMMY PRESENT AT BEDSIDE AND AWARE OF THE SITUATION. SON JUST PREFERS TO BE NOTIFIED WHEN WILL THE SURGERY SO THEY COULD BE HERE. WILL ENDORSE TO INCOMING NIGHT NURSE WELL. CHARGE NURSE/NICHOLE AWARE.
--- NOTE | 2019-04-30 18:38 | NUR ---
ENGINEERING MGR CLOSING NOTES PT IN BED, AWAKE, A/O X3-4. PT ON SUPPLEMENTARY OXYGEN AT 2L VIA NC, WITH NO ACUTE RESPIRATORY DISTRESS NOTED. PT REPORTED PAIN ON RIGHT HIP/LEG, RN GAVE PRN MEDS ORDERED. IVF NS AT 75ML/HR TO LEFT WRIST G22, FLUID INFUSING WELL. ON TELEMONITORING SR WITH MULTIFOCAL PVS, HR 89. ALL NEEDS AND CARE ATTENDED. PT COMFORTABLE IN BED. PT'S BED IN LOWEST, LOCKED POSITION WITH SRX3. CALL LIGHT KEPT WITHIN REACH. WILL ENDORSE TO INCOMING NIGHT NURSE FOR MIKI.
--- NOTE | 2019-04-30 19:36 | NUR ---
RN NOTES RECEIVED PATIENT AWAKE, ALERT ORIENTEDX4, RESTING COMFORTABLY, NO SIGNS OF ACUTE RESPIRATORY DISTRESS AT THIS TIME, DENIES SEVERE PAIN WITH MODERATE DISCOMFORT. REPOSITIONED, SAFETY MEASURES IN PLACE, ASPIRATION PRECAUTION EMPHASIZED, CALL LIGHT WITHIN EASY REACH, KEEP CLEAN DRY AND COMFORTABLE, IV ACCESS ON HER LEFT WRIST G#22 INTACT AND PATENT, WITH RIGHT UPPER CHEST PERMACATH, DRY CLEAN AND INTACT. ALL NEEDS ANTICIPATED, WILL CONTINUE TO MONITOR ACCORDINGLY.
[2019-04-30] MEDS: SENNOSIDES 8.6 MG TABLET PO SCH (21:50)
[2019-05-01] VITALS: BP 130/78
--- NOTE | 2019-05-01 02:29 | NUR ---
TELE/RN NOTES: RECEIVED REPORT FROM NAZIA GOMES. PATIENT SLEEPING IN BED COMFORTABLY, NO SIGNS OF ACUTE RESPIRATORY DISTRESS AT THIS TIME, DENIES PAIN AT THIS TIME. IN STABLE CONDITION. SAFETY MEASURES IN PLACE, ASPIRATION PRECAUTION EMPHASIZED, CALL LIGHT WITHIN EASY REACH, IV ACCESS ON HER LEFT WRIST G#22 INTACT AND PATENT, WITH NS RUNNING AT 75ML/HR. RIGHT UPPER CHEST PERMACATH, DRY CLEAN AND INTACT. SKIN ASSESSMENT DONE, WEEKLY PICTURES TAKEN AND DOCUMENTED. NPO STARTING MIDNIGHT FOR POSSIBLE SURGERY. ALL NEEDS ANTICIPATED, WILL CONTINUE MONITORING PATIENT ACCORDINGLY.
--- NOTE | 2019-05-01 02:29 | NUR ---
RN NOTES ALL NEEDS ATTENDED AND MET, RESTING COMFORTABLY AT THIS TIME, REPORT GIVEN TO NAZIA NINA. NPO POST MIDNIGHT AWAITING FOR SURGERY SCHEDULE FOR TODAY 05/01/2019. SAFETY MEASURES IN PLACE, CALL LIGHT WITHIN EASY REACH, NO SIGNS OF DISTRESS AT THIS TIME.
[2019-05-01 04:00] VITALS: BP 119/68
--- NOTE | 2019-05-01 06:12 | NUR ---
TELE/RN CLOSING NOTES: PATIENT SLEEPING IN BED COMFORTABLY, NO SIGNS OF ACUTE RESPIRATORY DISTRESS AT THIS TIME, DENIES PAIN AT THIS TIME. IN STABLE CONDITION. SAFETY MEASURES KEPT IN PLACE, ASPIRATION PRECAUTION EMPHASIZED, CALL LIGHT WITHIN EASY REACH, IV ACCESS ON HER LEFT WRIST G#22 INTACT AND PATENT, WITH NS RUNNING AT 75ML/HR. RIGHT UPPER CHEST PERMA-CATH, DRY CLEAN AND INTACT. ON TELE MONITORING WITH READING OF SR HR ON THE 90S. KEPT NPO STARTING MIDNIGHT FOR POSSIBLE SURGERY. ALL NEEDS ANTICIPATED, WILL ENDORSE TO DAY SHIFT FOR MIKI.
[2019-05-01 07:05] LABS: BASOPHILS % (AUTO) 0.4 % (0.0-2.0); EOSINOPHILS % (AUTO) 1.5 % (0.0-6.0); HEMATOCRIT 27 % (33-45); HEMOGLOBIN 8.7 g/dL (11.5-14.8); LYMPHOCYTES # (AUTO) 0.3 /CMM (0.8-4.8); LYMPHOCYTES % (AUTO) 2.9 % (20.0-44.0); MEAN CORPUSCULAR HGB CONC 32 g/dl (31.0-36.0); MEAN CORPUSCULAR VOLUME 92 fL (82-100); MONOCYTES # (AUTO) 0.4 /CMM (0.1-1.30); MONOCYTES % (AUTO) 4.4 % (2.0-12.0); NEUTROPHILS # (AUTO) 7.8 /CMM (1.8-8.9); NEUTROPHILS % (AUTO) 90.8 % (43.0-81.0); PLATELET COUNT (AUTO) 204 /CMM (150-450); RED BLOOD CELL COUNT(AUTO) 2.93 MIL/uL (4.0-5.2); WHITE BLOOD COUNT (AUTO) 8.6 K/uL (4.3-11.0)
[2019-05-01] MEDS: SUCRALFATE 1 G/10 ML UDC PO SCH ×4 (07:30→20:17)
[2019-05-01 07:34] LABS: CALCIUM, SERUM 6.2 mg/dL (8.5-10.1); CARBON DIOXIDE 22 mmol/L (21-32); CHLORIDE 96 mmol/L (98-107); CREATININE 3.6 mg/dL (0.6-1.3); GLUCOSE 126 mg/dL (74-106); MAGNESIUM 1.9 mg/dL (1.8-2.4); PHOSPHORUS 1.3 mg/dL (2.5-4.9); POTASSIUM 3.3 mmol/L (3.5-5.1); SODIUM SERUM 130 mmol/L (136-145); UREA NITROGEN, BLOOD 48 mg/dL (7-18)
[2019-05-01] MEDS: MORPHINE SULFATE INJ 2 MG/ML DISP.SYRIN IV PRN ×5 (07:45→20:18)
[2019-05-01 08:00] VITALS: BP 118/71
--- NOTE | 2019-05-01 08:00 | NUR ---
TAILOR WOMEN'S GARMENT ALTERATION OPENING NOTES RECEIVED PATIENT IN BED AWAKE ALERT AND ORIENTED X4. NO SIGNS OF ACUTE RESPIRATORY DISTRESS AT THIS TIME, PT C/O PAIN ON R LEG. ADMINISTERED PRN MORPHINE. IV ACCESS ON HER LEFT WRIST G#22 INTACT AND PATENT, FLUSHING WELL. NO S/S OF INFECTION OR INFILTRATION NOTED. WITH NS RUNNING AT 75ML/HR. PT IS A DIALYSIS PT, WITH RIGHT UPPER CHEST PERMA-CATH, DRY CLEAN AND INTACT. ON TELE MONITORING WITH NSR HR ON THE 90S. KEPT NPO FOR POSSIBLE SURGERY. SAFETY MEASURES KEPT IN PLACE, ASPIRATION PRECAUTION EMPHASIZED, CALL LIGHT WITHIN EASY REACH,
[2019-05-01] MEDS: PANTOPRAZOLE 40 MG VIAL IV SCH ×2 (08:25→16:00)
[2019-05-01] MEDS: POLYETHYLENE GLYCOL 3350 17 GM POWD.PACK PO SCH (08:26)
[2019-05-01] MEDS: PROSOURCE / PROSTAT (PYXIS) 30 ML UDC PO SCH ×2 (08:26→16:03)
[2019-05-01] MEDS: ASCORBIC ACID 500 MG TABLET PO SCH (08:26)
[2019-05-01] MEDS: ZINC SULFATE 220 MG CAPSULE PO SCH (08:26)
[2019-05-01] MEDS: DOCUSATE SODIUM 100 MG CAPSULE PO SCH ×2 (08:26→16:00)
[2019-05-01] MEDS: ASPIRIN 81 MG TAB.CHEW PO SCH (08:26)
[2019-05-01] MEDS: FERROUS SULFATE (325 MG) 325 MG/TAB TABLET PO SCH ×2 (08:26→16:01)
[2019-05-01] MEDS: SERTRALINE HCL 50 MG TABLET PO SCH ×2 (08:27→16:01)
[2019-05-01] MEDS: HYDROGEL DRESSING 90 GM TUBE TP SCH (08:33)
--- NOTE | 2019-05-01 09:00 | NUR ---
CALL TO DR GOLDSTEIN CALLED DR GOLDSTEIN OFFICE LINE TO TRY TO FIND OUT IF PT WILL BE HAVING SURGERY TODAY. AWAITING CALL BACK.
--- NOTE | 2019-05-01 10:30 | NUR ---
FOR SURGERY TOMORROW REACHED OUT TO DAVID HASSAN OF DR. GOLDSTEIN. ACCORDING TO HIM PT WILL BE HAVING SURGERY TOMORROW AT AROUND 3PM. NOTIFIED PT AND PTS SON. WILL PROVIDE PT WITH MEALS AND FOOD FOR NOW. AND WILL KEEP NPO AFTER MIDNIGHT TONIGHT
--- NOTE | 2019-05-01 10:45 | NUR ---
DIALYSIS NOTIFIED SHARAN (DIALYSIS) THAT PTS SURGERY WILL NOT BE HAPPENING TODAY. INFORMED TO DIALYZE PT TODAY SCHEDULED.
[2019-05-01] MEDS: FLUCONAZOLE IN NS 100 MG in PREMIX 1 EA IV SCH ×2 (13:52)
--- NOTE | 2019-05-01 14:00 | NUR ---
DIALYZED TODAY PT DIALYZED TODAY. PER [facility] DIALYSIS NURSE, CLEANING ONLY, NONE TAKEN OUT.
[2019-05-01] MEDS: HYDROCODONE/APAP 5/325MG 1 EACH TABLET PO PRN ×2 (14:26→22:08)
[2019-05-01 16:00] VITALS: BP 113/66
[2019-05-01] MEDS ORDERED: K PHOS NEUTRAL 250 MG TABLET PO ONE (16:00)
--- NOTE | 2019-05-01 18:53 | NUR ---
IT HELP DESK ASSOCIATE CLOSING NOTES PATIENT IN BED ASLEEP BUT EASILY AROUSABLE. NO CARDIAC OR RESPIRATORY DISTRESS AT THIS TIME, PIV ACCESS ON HER LEFT WRIST G#22 INTACT AND PATENT, FLUSHING WELL. NO S/S OF INFECTION OR INFILTRATION NOTED. PTS PAIN WAS MANAGED THROUGHOUT THE SHIFT. PT WAS ALSO DIALYZED TODAY. NS RUNNING AT 75ML/HR. PT IS A DIALYSIS PT, WITH RIGHT UPPER CHEST PERMA-CATH, DRY CLEAN AND INTACT. ON TELE MONITORING. PT WILL BE NPO FOR AFTER MIDNIGH TONIGHT FOR ORIF OF R FEMUR TOMORROW SCHEDULED WITH DR GOLDSTEIN. SAFETY MEASURES KEPT IN PLACE, BED LOCKED AND IN LOW POSITION. CALL LIGHT WITHIN EASY REACH,
--- NOTE | 2019-05-01 19:15 | NUR ---
PIPE COREMAKER PH OPENING NOTES BEDSIDE REPORT RECIEVED FROM KEILA MANDUJANO. PATIENT IN BED AWAKE ALERT AND ORIENTED X3. NO APPARENT RESPIRATORY DISTRESS AT THIS TIME, PIV ACCESS ON HER LEFT WRIST G#22 INTACT AND PATENT INFUSING NS AT 75ML PER HOUR. NO S/S INFILTRATION NOTED. PER REPORT PT WAS DIALYZED TODAY WITH NO FLUID REMOVED. PT HAS RIGHT UPPER CHEST PERMA-CATH, DRESSING DRY CLEAN AND INTACT. TELE READS ATRIAL TACH IN 100'S. PT WILL BE NPO FOR AFTER MIDNIGH TONIGHT FOR ORIF OF R FEMUR PLANNED FOR TOMORROW WITH DR GOLDSTEIN. PER REPORT 1 UNIT OF PRBC'S ORDERED TO INFUSE FOR PREP FOR SURGERY. SAFETY MEASURES KEPT IN PLACE, BED LOCKED AND IN LOW POSITION. CALL LIGHT WITHIN EASY REACH
[2019-05-01 20:00] VITALS: BP 129/72
[2019-05-01] MEDS: METOPROLOL TARTRATE 25 MG TABLET PO SCH (20:17)
[2019-05-01] MEDS: SENNOSIDES 8.6 MG TABLET PO SCH (20:17)
--- NOTE | 2019-05-01 21:17 | NUR ---
patient has one unit of prbc ordered. patient only has 22 gauge access. attempted iv insertion x2 without success to right arm. another rn Julius MANDUJANO. attempted insertion x2 on left arm without sucess. patient states "they were havign trouble getting access earlier." dr. rodriguez paged to see if order for midline would be appropriate. Addendum: 05/01/19 at 2205 by ELLI SULLIVAN RN SPOKE WITH BRANDON AND ORDER REICEVED FROM MIDLINE. SPOKE WITH [place] SIFTER AND MILLER AND SHE WANTS ICU NURSE TO ATTEMPT. [facility] came and attempt x1 to right ac 20 gauge inserted.
[2019-05-02] VITALS (12 sets, daily range): BP systolic 94–137; BP diastolic 44–74
--- NOTE | 2019-05-02 01:07 | NUR ---
type and screen today at 1900. orders for transfusionj reentered. lab to redraw another type and screen and reprepare the 1 unit of prbc.
[2019-05-02] MEDS: IV NS 0.9% 1,000 ML BAG IV SCH ×2 (01:15→22:19)
[2019-05-02] MEDS: MORPHINE SULFATE INJ 2 MG/ML DISP.SYRIN IV PRN ×2 (01:19→03:33)
--- NOTE | 2019-05-02 05:53 | NUR ---
1 unit of prbc infused without complications.
--- NOTE | 2019-05-02 05:57 | NUR ---
CONFERENCE AND EVENT ORGANISER CLOSING NOTES PATIENT IN BED AWAKE. PT HAS BEEN NPO SINCE MIDNIGHT. PRBC TRANSFUSION WAS DELAYED BUT INFUSION COMPLETED WITHOUT COMPLICATIONS. LABS TO BE DRAWN PER NEGRETES ORDERS. PT IN NO CARDIAC OR RESPIRATORY DISTRESS AT THIS TIME, PIV ACCESS ON HER LEFT WRIST G#22 INTACT AND PATENT, AND 20 GAUGE RIGHT AC PATENT. NO S/S OF INFILTRATION NOTED. PT IS A DIALYSIS PT, WITH RIGHT UPPER CHEST PERMA-CATH, WAS DIALYZED YESTERDAY 05/01/19 WITHOUT HAVING FLUID REMOVED. ON TELE MONITORING PT HAS IRREGULAR SINUS RHTHM AT 71. ORIF OF R FEMUR SCHEDULED TODAY AT [address] GOLDSTEIN. SAFETY MEASURES KEPT IN PLACE, BED LOCKED AND IN LOW POSITION. CALL LIGHT WITHIN EASY REACH PATIENT HAD ONE BM LAST NIGHT.
[2019-05-02] MEDS: SUCRALFATE 1 G/10 ML UDC PO SCH ×4 (06:31→21:11)
--- NOTE | 2019-05-02 07:15 | NUR ---
TELE MONITOR LEFT APPLIED. [employer] GUN HAND POINTED OUT THAT LAST ORDER WAS TO DISCONTINUE TELE MONITORING. PER REPORT YESTERDAY WITH KEILA DELGADO WANTED TO CONTINUE THE TELE MONITORING. TELE BOX LEFT APPLIED WILL ENDORSE TO DAY NURSE TO CLARIFY THE ORDER WITH DANNY.
[2019-05-02 07:21] LABS: BASOPHILS % (AUTO) 0.2 % (0.0-2.0); EOSINOPHILS % (AUTO) 1.5 % (0.0-6.0); HEMATOCRIT 33 % (33-45); HEMOGLOBIN 10.5 g/dL (11.5-14.8); LYMPHOCYTES # (AUTO) 0.2 /CMM (0.8-4.8); LYMPHOCYTES % (AUTO) 2.5 % (20.0-44.0); MEAN CORPUSCULAR HGB CONC 32 g/dl (31.0-36.0); MEAN CORPUSCULAR VOLUME 91 fL (82-100); MONOCYTES # (AUTO) 0.4 /CMM (0.1-1.30); MONOCYTES % (AUTO) 5.4 % (2.0-12.0); NEUTROPHILS # (AUTO) 6.8 /CMM (1.8-8.9); NEUTROPHILS % (AUTO) 90.4 % (43.0-81.0); PLATELET COUNT (AUTO) 195 /CMM (150-450); WHITE BLOOD COUNT (AUTO) 7.5 K/uL (4.3-11.0)
[2019-05-02 07:36] LABS: CALCIUM, SERUM 6.1 mg/dL (8.5-10.1); CARBON DIOXIDE 23 mmol/L (21-32); CHLORIDE 97 mmol/L (98-107); CREATININE 3.4 mg/dL (0.6-1.3); GLUCOSE 130 mg/dL (74-106); PHOSPHORUS 1.6 mg/dL (2.5-4.9); POTASSIUM 3.1 mmol/L (3.5-5.1); SODIUM SERUM 132 mmol/L (136-145); UREA NITROGEN, BLOOD 45 mg/dL (7-18)
--- NOTE | 2019-05-02 08:00 | NUR ---
EXAMINING CHAIR ASSEMBLER OPENING NOTES PATIENT IN BED AWAKE. PT HAS BEEN NPO SINCE MIDNIGHT. 1 UNIT PRBC TRANSFUSION INFUSION COMPLETED WITHOUT COMPLICATIONS. NO CARDIAC OR RESPIRATORY DISTRESS AT THIS TIME, PIV ACCESS ON HER LEFT WRIST G#22 INTACT AND PATENT, AND 20 GAUGE RIGHT AC PATENT. WITH IVF NS INFUSING WELL AT 75 ML/HR.NO S/S OF INFILTRATION NOTED. PT IS A DIALYSIS PT, WITH RIGHT UPPER CHEST PERMA-CATH, WAS DIALYZED YESTERDAY 05/01/19 WITHOUT HAVING FLUID REMOVED. ON TELE MONITORING PT HAS IRREGULAR SINUS RHTHM AT 71. ORIF OF R DISTAL FEMUR SCHEDULED TODAY AT [address] GOLDSTEIN.ALL CONSENTS AND CHECKLIST COMPLETED.SAFETY MEASURES KEPT IN PLACE, BED LOCKED AND IN LOW POSITION. CALL LIGHT WITHIN EASY REACH.
[2019-05-02] MEDS: PANTOPRAZOLE 40 MG VIAL IV SCH ×2 (08:45→18:30)
[2019-05-02] MEDS: ASPIRIN 81 MG TAB.CHEW PO SCH (08:45)
[2019-05-02] MEDS: DOCUSATE SODIUM 100 MG CAPSULE PO SCH ×2 (08:45→17:00)
[2019-05-02] MEDS: METOPROLOL TARTRATE 25 MG TABLET PO SCH ×2 (08:45→21:00)
[2019-05-02] MEDS: FERROUS SULFATE (325 MG) 325 MG/TAB TABLET PO SCH ×2 (08:45→17:00)
[2019-05-02] MEDS: PROSOURCE / PROSTAT (PYXIS) 30 ML UDC PO SCH ×2 (08:46→17:00)
[2019-05-02] MEDS: ZINC SULFATE 220 MG CAPSULE PO SCH (08:46)
[2019-05-02] MEDS: POLYETHYLENE GLYCOL 3350 17 GM POWD.PACK PO SCH (08:46)
[2019-05-02] MEDS: SERTRALINE HCL 50 MG TABLET PO SCH ×2 (08:46→17:00)
[2019-05-02] MEDS: ASCORBIC ACID 500 MG TABLET PO SCH (08:46)
[2019-05-02] MEDS: HYDROGEL DRESSING 90 GM TUBE TP SCH (09:24)
--- NOTE | 2019-05-02 11:00 | NUR ---
PT REFUSED TO BE TURNED AND REPOSITIONED SAYING SHE DOESN'T WANT TO BE BOTHERED,INSPITE OF EXPLAINING THE BENEFITS AND RISKS OF NOT BEING TURNED AND ITS IMPORTANCE FOR SKIN MANAGEMENT SPECIALLY SINCE SHE HAS SACRAL DTI AND PRESSURE SORE,PT INSISTS TO REFUSED TO BE TURNED.ALSO PT REFUSED TO BE TRANSFERRED IN THE [facility] M[facility] WELL INSPITE OF EXPLAINING ITS RISKS AND BENEFITS.
--- NOTE | 2019-05-02 13:00 | NUR ---
PT REFUSED TO BE TURNED AND REPOSITIONED SAYING SHE DOESN'T WANT TO BE BOTHERED,INSPITE OF EXPLAINING THE BENEFITS AND RISKS OF NOT BEING TURNED AND ITS IMPORTANCE FOR SKIN MANAGEMENT SPECIALLY SINCE SHE HAS SACRAL DTI AND PRESSURE SORE,PT INSISTS TO REFUSED TO BE TURNED.ALSO PT REFUSED TO BE TRANSFERRED IN THE [facility]ATTR[facility] WELL INSPITE OF EXPLAINING ITS RISKS AND BENEFITS.
[2019-05-02] MEDS: FLUCONAZOLE IN NS 100 MG in PREMIX 1 EA IV SCH ×2 (13:04)
--- NOTE | 2019-05-02 14:55 | NUR ---
PT PICKED UP BY [facility] FOR ORIF OF RT DISTAL FEMUR FX BY DR GOLDSTEIN.WITH STABLE V/S.
[2019-05-02] MEDS ORDERED: MIDAZOLAM HCL 2 MG/2ML VIAL ONE (15:10)
[2019-05-02] MEDS ORDERED: FENTANYL PF 100MCG/2ML AMPUL ONE (15:10)
[2019-05-02] MEDS ORDERED: ANESTHESIA TRAY IN PYXIS 1 EA TRAY MC ONE (15:55)
[2019-05-02] MEDS ORDERED: Sodium Phosphate 15 MMOL in IV D5W 250 ML IV ONE (16:00)
[2019-05-02] MEDS ORDERED: TRANEXAMIC ACID 1,000 MG in IV NS 0.9% 100 ML IV ONE (16:30)
[2019-05-02] MEDS ORDERED: BUPIVACAINE 0.5 % PF 150 MG/30 ML VIAL ONE (16:53)
[2019-05-02] MEDS ORDERED: BACITRACIN 50000 UNITS/VIAL ONE (16:53)
--- NOTE | 2019-05-02 18:00 | NUR ---
PT JUST CAME BACK FROM [facility] S/P ORIF OF DISTAL RT FEMUR BY DR GOLDSTEIN WITH STABLE V/S. BP 94/57 HR 82 RR 16 T97.7 O2 SAT 99% WITH O2 AT 2L/MIN VIA NC.WITH RLE IMMOBILIZER IN PLACE. PT DENIES ANY PAIN OR DISTRESS BUT REFUSED ORAL MEDS AND WANTS TO SLEEP,REFUSING TO BE BOTHERED.
[2019-05-02] MEDS: HYDROCODONE/APAP 5/325MG 1 EACH TABLET PO PRN ×2 (18:44→22:19)
--- NOTE | 2019-05-02 19:06 | NUR ---
PT RESTING IN BED C/O S/P RT DISTAL FEMUR ORIF PAIN. EXPLAINED THAT SHE CAN'T GET MORPHINE IV AT THIS TIME DUE TO HER LOW BP. ADMINISTERED NORCO 1 TAB PO WHICH SHE AGREED
--- NOTE | 2019-05-02 19:30 | NUR ---
RN M/S OPENING NOTE PM BEDSIDE REPORT RECIEVED FROM VON MANDUJ[facility]. PT POST OP RETURNED TO UNIT AT 1800. PT IN BED C/O PAIN AT SURGICAL SITE/LEG RECENTLY RECIEVED MIGUELINACO AND REPORTING IT IS HELPING A LITTLE RATES PAIN AT THIS TIME AT 06/08. SON AT THE BEDSIDE. REVIEWED POC QUESTIONS CONCERNS ADDRESSED. ON 2 LNC. BED DOWN LOCKED SRX2 BED ALARM ACTIVE. CALL LIGHT WITHIN REACH. WILL CONT TO MONITOR.
[2019-05-02] MEDS: SENNOSIDES 8.6 MG TABLET PO SCH (21:11)
[2019-05-02] MEDS: ALBUTEROL FS 2.5 MG/3 ML VIAL.NEB IH PRN (22:55)
[2019-05-02] MEDS: CEFAZOLIN 2 GM in IV D5W 100 ML IV SCH (23:51)
[2019-05-03] MEDS: MORPHINE SULFATE INJ 2 MG/ML DISP.SYRIN IV PRN ×3 (01:59→06:57)
--- NOTE | 2019-05-03 02:08 | NUR ---
morphine administered as ordered by patient request for pain 8 of ten to right leg.
--- NOTE | 2019-05-03 02:10 | NUR ---
PATIENT REFUSING BED BATH AND REPOSITIONING INFORMED THAT WOUND ON BOTTOM COULD POTENTIALLY GET WORSE. PATIENT STATES "i REALLY DON'T FEEL LIKE MOVING. IM COMFORTABLE WHERE I AM RIGHT NOW.
--- NOTE | 2019-05-03 04:05 | NUR ---
morphine administered; patient refused repositioning morphine 2mg administered per patient request as ordered. for 8/ pain to right leg. patient refused repositioning at this time. reviewe the potential of her skin sores getting worse. patient states " I know but Im not worried about that right now i just dont want to be turned right now."
[2019-05-03 06:58] LABS: BASOPHILS # (AUTO) 0.1 /CMM (0.0-0.2); BASOPHILS % (AUTO) 0.9 % (0.0-2.0); EOSINOPHILS % (AUTO) 0.1 % (0.0-6.0); HEMATOCRIT 30 % (33-45); HEMOGLOBIN 9.5 g/dL (11.5-14.8); LYMPHOCYTES # (AUTO) 0.2 /CMM (0.8-4.8); LYMPHOCYTES % (AUTO) 1.5 % (20.0-44.0); MEAN CORPUSCULAR HGB CONC 31 g/dl (31.0-36.0); MEAN CORPUSCULAR VOLUME 93 fL (82-100); MONOCYTES # (AUTO) 0.4 /CMM (0.1-1.30); NEUTROPHILS # (AUTO) 13.7 /CMM (1.8-8.9); NEUTROPHILS % (AUTO) 94.5 % (43.0-81.0); PLATELET COUNT (AUTO) 205 /CMM (150-450); RED BLOOD CELL COUNT(AUTO) 3.28 MIL/uL (4.0-5.2); WHITE BLOOD COUNT (AUTO) 14.5 K/uL (4.3-11.0)
[2019-05-03 07:15] LABS: CARBON DIOXIDE 16 mmol/L (21-32); CHLORIDE 98 mmol/L (98-107); CREATININE 3.8 mg/dL (0.6-1.3); GLUCOSE 129 mg/dL (74-106); MAGNESIUM 1.9 mg/dL (1.8-2.4); PHOSPHORUS 2.4 mg/dL (2.5-4.9); POTASSIUM 3.4 mmol/L (3.5-5.1); SODIUM SERUM 132 mmol/L (136-145); UREA NITROGEN, BLOOD 49 mg/dL (7-18)
[2019-05-03] MEDS: ALBUTEROL FS 2.5 MG/3 ML VIAL.NEB IH PRN ×2 (07:20→19:15)
[2019-05-03 07:45] LABS: CALCIUM, SERUM 5.6 mg/dL (8.5-10.1)
[2019-05-03 08:00] VITALS: BP 105/67
--- NOTE | 2019-05-03 08:00 | NUR ---
MS RN OPENING NOTES PATIENT IN BED AWAKE.PT C/O SOB AND WHEEZING NOTED.HOB ELEVATED. WITH O2 AT 2L/MIN VIA NC. SEEN BY DR CUEAV (SERVICES DELIVERY DRIVER)WITH ORDERS FOR STAT ABG,KUB AND CXR. PIV ACCESS ON HER LEFT WRIST G#22 INTACT AND PATENT. WITH IVF NS INFUSING WELL AT 75 ML/HR.NO S/S OF INFILTRATION NOTED. PT IS A DIALYSIS PT, WITH RIGHT UPPER CHEST PERMA-CATH, WAS DIALYZED 05/01/19 WITHOUT HAVING FLUID REMOVED. S/P ORIF OF R DISTAL FEMUR 05/02/[address] GOLDSTEIN. SAFETY MEASURES KEPT IN PLACE, BED LOCKED AND IN LOW POSITION. CALL LIGHT WITHIN EASY REACH.
--- NOTE | 2019-05-03 08:30 | NUR ---
NOTIFIED DR SANDRA BRANDT OF PT'S LOW CA+ 5.6, PH 2.4, AND K+ 3.4AND PT'S METABOLIC ACIDOSIS ABG RESULT.
[2019-05-03] MEDS: METOPROLOL TARTRATE 25 MG TABLET PO SCH ×2 (09:00→20:21)
[2019-05-03] MEDS: PROSOURCE / PROSTAT (PYXIS) 30 ML UDC PO SCH ×2 (09:06→17:13)
[2019-05-03] MEDS: ASCORBIC ACID 500 MG TABLET PO SCH (09:06)
[2019-05-03] MEDS: DOCUSATE SODIUM 100 MG CAPSULE PO SCH ×2 (09:06→17:13)
[2019-05-03] MEDS: PANTOPRAZOLE 40 MG VIAL IV SCH ×2 (09:07→17:13)
[2019-05-03] MEDS: FERROUS SULFATE (325 MG) 325 MG/TAB TABLET PO SCH ×2 (09:07→17:13)
[2019-05-03] MEDS: ZINC SULFATE 220 MG CAPSULE PO SCH (09:07)
[2019-05-03] MEDS: SERTRALINE HCL 50 MG TABLET PO SCH ×2 (09:07→17:13)
[2019-05-03] MEDS: ASPIRIN 81 MG TAB.CHEW PO SCH (09:07)
[2019-05-03] MEDS: POLYETHYLENE GLYCOL 3350 17 GM POWD.PACK PO SCH (09:07)
[2019-05-03] MEDS: HYDROGEL DRESSING 90 GM TUBE TP SCH (09:10)
[2019-05-03] MEDS: SUCRALFATE 1 G/10 ML UDC PO SCH ×4 (09:10→21:38)
[2019-05-03] MEDS: CEFAZOLIN 2 GM in IV D5W 100 ML IV SCH ×2 (09:12→16:57)
[2019-05-03 09:43] LABS: ABG BASE EXCESS -10.9 mmol/L; ABG OXYGEN SATURATION 97.4 % (92.0-98.5); ABG PCO2 27.2 mmHg (35.0-45.0); ABG PH 7.324 (7.350-7.450); ABG PO2 114.1 mmHg (75.0-100.0); AaDO2 82.2 mmHg; COHb 0.2 % (0.5-1.5); MetHb 0.6 % (0.0-1.5); O2Hb 96.6 % (94.0-97.0); SITE, ABG Left Brachial; VENT MODE, BG Nasal Cannula
[2019-05-03] MEDS ORDERED: K PHOS NEUTRAL 250 MG TABLET PO ONE (12:00)
--- NOTE | 2019-05-03 13:00 | NUR ---
NOTIFIED DR CARRERA OF PT'S LOW CA+ 5.6, LOW PH 2.4, K+3.4.HEMODIALYSIS STARTED AND ALSO AWARE OF PT'S CRITICAL LOW VALUES.
--- NOTE | 2019-05-03 14:36 | NUR ---
Still with ongoing Hemodialysis procedure-will administer Diflucan IV post HD.
--- NOTE | 2019-05-03 15:17 | NUR ---
COMPLETED HEMODIALYSIS PROCEDURE WITH 1.5 LITER OUTPUT. BP 93/45 HR 94 PT DENIES ANY SOB OR DISCOMFORT. WILL ADMINISTER DIFLUCAN IV NOW.
[2019-05-03] MEDS: FLUCONAZOLE IN NS 100 MG in PREMIX 1 EA IV SCH ×2 (15:26)
[2019-05-03 16:00] VITALS: BP 101/65
--- NOTE | 2019-05-03 19:24 | NUR ---
MS RN NOTES PATIENT IN BED, AWAKE, ALERT AND ORIENTED X 4. BREATHING EVEN AND UNLABORED ON ROOM AIR. SHOWS NO SIGNS OF ACUTE RESPIRATORY DISTRESS NO ACUTE PAIN.IV ON L WRIST 22 IS CLEAN DRY AND INTACT. SHOWS NO REDNESS. NO INFILTRATION. PT HAS RLE IMMOBILIZER. FC INTACT, SHOWING YELLOW CLEAR URINE. HD 05/03/2019 WITH 1.5L OUT. SAFETY PRECAUTIONS IN PLACE. BED IN LOWEST POSITION, LOCKED, AND CALL LIGHT KEPT WITHIN REACH. WILL CONTINUE TO MONITOR.
[2019-05-03 19:30] VITALS: BP 103/58
[2019-05-03 20:00] VITALS: BP 103/58
[2019-05-03] MEDS ORDERED: ENOXAPARIN SODIUM 40 MG/0.4 ML DISP.SYRIN SQ SCH (20:00)
[2019-05-03] MEDS: HYDROCODONE/APAP 5/325MG 1 EACH TABLET PO PRN (20:14)
[2019-05-03] MEDS: HEPARIN SODIUM, PORCINE 5000 UNITS/1 ML VIAL SQ SCH (20:31)
[2019-05-03] MEDS ORDERED: HEPARIN SODIUM, PORCINE 5000 UNITS/1 ML VIAL SQ SCH (21:00)
[2019-05-03] MEDS: SENNOSIDES 8.6 MG TABLET PO SCH (21:38)
--- NOTE | 2019-05-03 22:57 | NUR ---
RAPID RESPONSE PAGED OVERHEAD @ 6890 DUE TO LOW SPO2-76%. PLACED PT ON NON REBREATHER 15 LPM. ABG DONE. @3835 PT TRANSPORTED TO ICU ROOM 264 ON NON REBREATHER
[2019-05-03] MEDS ORDERED: DEXTROSE 50%-WATER 50 ML DISP.SYRIN ONE (23:01)
--- NOTE | 2019-05-03 23:15 | NUR ---
MS RN NOTES RAPID RESPONSE CALL. GARO ORDERED FOR PATIENT TO BE TRANSFERRED TO ICU. TRANSFERRED ICU TO CONTINUITY OF CARE.
[2019-05-03 23:16] LABS: ABG OXYGEN SATURATION 98.9 % (92.0-98.5); ABG PCO2 47.8 mmHg (35.0-45.0); ABG PH 6.996 (7.350-7.450); ABG PO2 311.8 mmHg (75.0-100.0); AaDO2 353.4 mmHg; COHb 0.5 % (0.5-1.5); MetHb 0.9 % (0.0-1.5); O2Hb 97.5 % (94.0-97.0); SITE, ABG Left Radial; VENT MODE, BG 100% NON-REBREATHER
--- NOTE | 2019-05-03 23:25 | NUR ---
ICU/RN- PT. TRANSPORTED TO ICU FROM [facility] BY BED PER ACLS PROTOCOL S/P BRUSH CLEARING LABORER FOR AMS AND RESPIRATORY FAILURE.. PT. VERY LETHARGIC, AROUSABLE, ANSWERS YES OR NO APPROPRIATELY.. ON NRB. SATS.-100%. [facility]-101. BP-117/57. A. GARO DNP MADE AWARE OF PT. STATUS AND ABG. WILL PLACE PT. ON BIPAP FOR NOW.
[2019-05-03] MEDS ORDERED: IV D5/0.45 NACL 1,000 ML IV ONE (23:30)
[2019-05-03 23:34] VITALS: BP 117/57
[2019-05-03 23:44] LABS: ALANINE AMINOTRANSFERASE 20 U/L (12-78); ALKALINE PHOSPHATASE 225 U/L (46-116); ASPARTATE AMINOTRANSFERASE 112 U/L (15-37); BILIRUBIN,TOTAL 0.4 mg/dL (0.2-1.0); CALCIUM, SERUM 6.1 mg/dL (8.5-10.1); CARBON DIOXIDE 12 mmol/L (21-32); CHLORIDE 97 mmol/L (98-107); POTASSIUM 4.7 mmol/L (3.5-5.1); SODIUM SERUM 132 mmol/L (136-145); TOTAL PROTEIN, SERUM 5.9 g/dL (6.4-8.2); UREA NITROGEN, BLOOD 42 mg/dL (7-18)
[2019-05-03 23:59] LABS: ALBUMIN 1.4 g/dL (3.4-5.0); GLUCOSE 595 mg/dL (74-106)
[2019-05-04] VITALS (33 sets, daily range): BP systolic 33–148; BP diastolic 12–82
[2019-05-04] MEDS ORDERED: SODIUM BICARBONATE SYR 50 MEQ/50 ML DISP.SYRIN IV ONE
[2019-05-04] MEDS ORDERED: IV D5/0.45 NACL 1,000 ML IV PRN
--- NOTE | 2019-05-04 | NUR ---
ICU/ANABELL WYMAN DNP DECIDED TO INTUBATE PT. INSTEAD BASED ON PT. NEURO STATUS AND ABGS.. ER MD NOTIFIED THRU ER STAFF CELESTE BURRELL. WILL PREPARE FOR INTUBATION AND EMERGENCY CL INSERTION.
--- NOTE | 2019-05-04 00:20 | NUR ---
PT ORALLY INTUBATED BY DR. CASTRO WITH 7.5 ETT SECURED @ 25 CM AT THE LIP VIA ANCHOR FAST. CO2 DETECTOR POSITIVE COLOR CHANGED . EQUAL CHEST RISE NOTED. PLACED PT ON 840 VENT AND PLUGGED INTO RED OUTLET. VENT ALARMS ON AND AUDIBLE . AMBU BAG @ HOB. WILL CONTINUE TO MONITOR PT T/O THE SHIFT.
[2019-05-04] MEDS ORDERED: NOREPINEPHRINE 4 MG/4 ML AMPUL IV ONE (00:49)
[2019-05-04] MEDS: NOREPINEPHRINE 16 MG in IV D5W 500 ML IV PRN ×2 (00:57→10:57)
--- NOTE | 2019-05-04 00:57 | NUR ---
RN/ICU-NOW BP-54/38, HR. LEVOPHED DRIP STARTED PER PROTOCOL PER DNP ORDER. WILL TITRATE TO KEEP SBP >90.
--- NOTE | 2019-05-04 01:00 | NUR ---
RN/ICU-RESULT OF POST INTUBATION IN, DR. MARCELO RADIOLOGY CALLED W/ CONCERNS REGARDING POSS.GASTRIC OBSTRUCTION/ VOLVULUS, RECOMMENDING CT ABDOMEN. WILL NOTIFY PRITI KATZ.
--- NOTE | 2019-05-04 01:30 | NUR ---
RN/ICU- REPEAT ABGS POST INTUBATION IN, WILL RELAY TO Karine WYMAN DNP.
--- NOTE | 2019-05-04 01:45 | NUR ---
RN/ICU-ABG RESULTS AND CXR W/ DR. MARCELO(RADIOLOGISTS) MESSAGE RELAYED TO Karine WYMAN. W/ ORDERS NOTED. FOR CT ABDOMEN WITHOUT CONTRAST ONCE PT. IS MORE STABLE.
[2019-05-04 01:53] LABS: ABG BASE EXCESS -19.6 mmol/L; ABG OXYGEN SATURATION 97.5 % (92.0-98.5); ABG PCO2 29.3 mmHg (35.0-45.0); ABG PH 7.091 (7.350-7.450); ABG PO2 136.7 mmHg (75.0-100.0); COHb 0.3 % (0.5-1.5); MetHb 0.8 % (0.0-1.5); O2Hb 96.4 % (94.0-97.0); SITE, ABG Left Radial; VENT MODE, BG AC 100%; VT, ABG 500 mL
[2019-05-04] MEDS ORDERED: SODIUM BICARBONATE SYR 50 MEQ/50 ML DISP.SYRIN IV STA (02:00)
[2019-05-04] MEDS ORDERED: PROPOFOL 100 ML IV PRN (02:00)
--- NOTE | 2019-05-04 02:00 | NUR ---
ICU/RN- SON TAMMY WAS NOTIFIED BY PHONE OF PT. CONDITION BY PHONE. VERBALIZED UNDERSTANDING. ALL QUESTIONS ANSWERED APPROPRIATELY.
--- NOTE | 2019-05-04 02:00 | NUR ---
ICU/RN-PT. BP-76/58, HR-67/MIN. DOPAMINE DRIP STARTED PER PROTOCOL. AT 5MCG/KG/MIN. WILL TITRATE ACCORDINGLY TO KEEP SBP>90.
[2019-05-04] MEDS ORDERED: MEROPENEM 500 MG VIAL IV ONE (02:15)
[2019-05-04] MEDS ORDERED: METRONIDAZOLE 500MG/ NS 100ML 100 ML IV ONE (02:15)
[2019-05-04] MEDS: METRONIDAZOLE 500MG/ NS 100ML 500 MG in PREMIX 1 EA IV SCH ×2 (02:19→12:10)
[2019-05-04] MEDS ORDERED: DOPamine 400 MG/D5W 250 ML RTU BAG IV PRN (02:30)
[2019-05-04] MEDS ORDERED: DOPamine 400 MG in IV D5W 250 ML IV PRN (02:30)
[2019-05-04] MEDS ORDERED: IV NS 0.9% 250 ML IV PRN (02:30)
[2019-05-04] MEDS ORDERED: MEROPENEM 500 MG in IV NS 0.9% 50 ML IV ONE (03:00)
--- NOTE | 2019-05-04 03:00 | NUR ---
RN/ICU- SON TAMMY HERE TO SEE PT. UPDATE GIVEN TO SAME AND VERBALIZED UNDERSTANDING.
--- NOTE | 2019-05-04 03:17 | NUR ---
ICU/RN- PT. STARTED GETTING AGITATED , DUCKWORTH SPONTANEOUSLY, RR-30/MIN. SON AT THE BEDSIDE. DIPRIVAN DRIP STARTED AT 5MCG/KG/MIN. WILL TITRATE PER PROTOCOL.
--- NOTE | 2019-05-04 03:30 | NUR ---
RN/ICU- ATTEMPTED TO INSERT NGT X2 AND FINALLY WAS ABLE TO INSERT VIA R NARE ASSISTED BY NAZIA SHARMA CHECKED PLACEMENT W/ SAME BY AUSCULTATION. ABLE TO ASPIRATE COFFEE GROUND GI CONTENTS MODERATE. HOOKED UP TO LOW INTERMITTENT SUCTION.
[2019-05-04 04:44] LABS: BASOPHILS # (AUTO) 0.3 /CMM (0.0-0.2); EOSINOPHILS % (AUTO) 1.5 % (0.0-6.0); HEMATOCRIT 30 % (33-45); HEMOGLOBIN 8.8 g/dL (11.5-14.8); LYMPHOCYTES # (AUTO) 0.4 /CMM (0.8-4.8); LYMPHOCYTES % (AUTO) 1.5 % (20.0-44.0); MEAN CORPUSCULAR HGB CONC 30 g/dl (31.0-36.0); MEAN CORPUSCULAR VOLUME 97 fL (82-100); MONOCYTES # (AUTO) 0.6 /CMM (0.1-1.30); NEUTROPHILS # (AUTO) 27.7 /CMM (1.8-8.9); PLATELET COUNT (AUTO) 192 /CMM (150-450); RED BLOOD CELL COUNT(AUTO) 3.04 MIL/uL (4.0-5.2); WHITE BLOOD COUNT (AUTO) 29.5 K/uL (4.3-11.0)
[2019-05-04 05:10] LABS: CARBON DIOXIDE 13 mmol/L (21-32); CHLORIDE 97 mmol/L (98-107); CREATININE 3.7 mg/dL (0.6-1.3); GLUCOSE 92 mg/dL (74-106); MAGNESIUM 2.4 mg/dL (1.8-2.4); PHOSPHORUS 4.6 mg/dL (2.5-4.9); POTASSIUM 4.8 mmol/L (3.5-5.1); SODIUM SERUM 134 mmol/L (136-145); UREA NITROGEN, BLOOD 44 mg/dL (7-18)
[2019-05-04] MEDS ORDERED: PHENYLEPHRINE 10 MG/ML VIAL ONE (05:38)
--- NOTE | 2019-05-04 06:00 | NUR ---
RN/ICU-NOW HR-120'S SBP<86. NEOSYNEPHRINE DRIP STARTED AT 40MCG/MIN PER PROTOCOL. WILL ATTEMPT TO WEAN DOPAMINE DRIP ABLE PER PROTOCOL.
[2019-05-04] MEDS: PHENYLEPHRINE 80 MG in IV D5W 250 ML IV PRN ×2 (06:01→13:47)
--- NOTE | 2019-05-04 06:58 | NUR ---
RN/ICU- DR. CARRERA HERE SEEN PT. AWARE OF CXR RESULT W/ ORDERS NOTED. TO GIVE IL NS BOLUS. AND DO STAT LACTIC ACID. IF POSITIVE TO FOLLOW SEPSIS PROTOCOL. WILL ENDORSE TO DAYSHIFT.
[2019-05-04] MEDS ORDERED: IV NS 0.9% 1,000 ML IV PRN (07:00)
--- NOTE | 2019-05-04 07:00 | NUR ---
ICU/RN-PT. EXTREMITIES VERY COLD. SATS. NOT TRACKING.
--- NOTE | 2019-05-04 07:10 | NUR ---
RN/ICU- PT. REMAINS A FULL CODE. CRITICALLY ILL WILL CONTINUE TO MONITOR. REPORT GIVEN TO NAZIA MCKEON.
[2019-05-04] MEDS: SUCRALFATE 1 G/10 ML UDC PO SCH ×2 (07:30→11:10)
--- NOTE | 2019-05-04 07:30 | NUR ---
RN/ICU- PT. CRITICALLY ILL, ANDI. UPPER EXTREMITIES EXTREMELY SWOLLEN AND LEAKING. UNABLE TO TURN PT. TO SIDES, STAYED IN SUPINE POSITION DUE TO VERY LABILE BP AND PT. REMAINS CRITICAL.
[2019-05-04] MEDS: FERROUS SULFATE (325 MG) 325 MG/TAB TABLET PO SCH (09:00)
[2019-05-04] MEDS: ASCORBIC ACID 500 MG TABLET PO SCH (09:00)
[2019-05-04] MEDS: DOCUSATE SODIUM 100 MG CAPSULE PO SCH (09:00)
[2019-05-04] MEDS: HYDROGEL DRESSING 90 GM TUBE TP SCH (09:00)
[2019-05-04] MEDS: PROSOURCE / PROSTAT (PYXIS) 30 ML UDC PO SCH (09:00)
[2019-05-04] MEDS: POLYETHYLENE GLYCOL 3350 17 GM POWD.PACK PO SCH (09:00)
[2019-05-04] MEDS: SERTRALINE HCL 50 MG TABLET PO SCH (09:00)
[2019-05-04] MEDS: METOPROLOL TARTRATE 25 MG TABLET PO SCH (09:00)
[2019-05-04] MEDS: ASPIRIN 81 MG TAB.CHEW PO SCH (09:00)
[2019-05-04] MEDS: ZINC SULFATE 220 MG CAPSULE PO SCH (09:00)
--- NOTE | 2019-05-04 09:00 | NUR ---
received pt from hydraulic controls technician,s/p FOREX TRADER with intubation, sedated on diprivan, pupils reaction are very sluggish, SR, pulses can be checked by Doppler only, intubated, on levo, kate and dopamine, unable to get BP even manual, Anesthesiologist tried to get A line was unsuccessful, nursing boatbuilder supervisor notified, Dr Noble will be coming soon, NG to LIS, f/c low output, Dr Turcios at the bedside order 1,5 L NS because Lactic acid is 15.5 following sepsis protocol, pt turned and repositioned.
[2019-05-04] MEDS: HEPARIN SODIUM, PORCINE 5000 UNITS/1 ML VIAL SQ SCH (09:33)
[2019-05-04] MEDS: PANTOPRAZOLE 40 MG VIAL IV SCH (09:33)
[2019-05-04] MEDS ORDERED: IV NS 0.9% 500 ML IV ONE ×3 (10:30→12:30)
[2019-05-04] MEDS: HYDROCORTISONE SOD SUCCINATE 100 MG/2 ML VIAL IV SCH ×2 (11:10→12:06)
--- NOTE | 2019-05-04 11:15 | NUR ---
Dr Noble at the bedside, A line inserted.
[2019-05-04 11:19] LABS: BILIRUBIN,DIRECT 0.3 mg/dL (0.0-0.2)
--- NOTE | 2019-05-04 12:39 | NUR ---
pt is at 3 pressors running at maximum doses - levo, kate and dopamine, will be ordering vasopressin per Dr Magdaleno.
[2019-05-04] MEDS ORDERED: VASOPRESSIN INJ 50 UNIT in IV D5W 497.5 ML IV PRN (13:00)
[2019-05-04] MEDS: FLUCONAZOLE IN NS 100 MG in PREMIX 1 EA IV SCH ×2 (13:15)
[2019-05-04] MEDS ORDERED: MEROPENEM 500 MG in IV NS 0.9% 50 ML IV SCH (14:00)
--- NOTE | 2019-05-04 14:30 | NUR ---
Asystole, pupils fixed and dilated , non reactive to light, no reflexes, no pulses in major arteries, no respiration, patient is pronounced by Roberto Gonzalez RN and charge nurse.
--- NOTE | 2019-05-04 14:34 | NUR ---
RN NOTE: Patient was noted asystole on the monitoring engineer, no palpable pulses, pupils dilated and fixed, no viable vital sign and no spontaneous breathing noted. Patient was a DNR/DNI. Patient's family was at the bedside. Dr. Rasta Kothari was informed of the patient's time of at 1426.
== END 2019-05-04 17:53 | disposition expired | DRG 480 ==
LOC: ER 16:45 → MED 19:54 → TELE 21:16 → MED 05-01 08:40 → TELE 05-01 08:40 → MED 05-02 05:06 → ICU 05-03 23:25
PROVIDERS: ADMIT Nurse Practitioner Acute Care
PROC: 30233N1 Transfusion of Nonautologous Red Blood Cells into Peripheral Vein, Percutaneous Approach (ICD-10-PCS; 2019-04-28)
PROC: 5A1D70Z Performance of Urinary Filtration, Intermittent, Less than 6 Hours Per Day (ICD-10-PCS; 2019-04-28)
PROC: 0QSB04Z Reposition Right Lower Femur with Internal Fixation Device, Open Approach (ICD-10-PCS; principal; 2019-05-02)
PROC: 5A1935Z Respiratory Ventilation, Less than 24 Consecutive Hours (ICD-10-PCS; 2019-05-04)
PROC: 05H633Z Insertion of Infusion Device into Left Subclavian Vein, Percutaneous Approach (ICD-10-PCS; 2019-05-04)
PROC: B547ZZA Ultrasonography of Left Subclavian Vein, Guidance (ICD-10-PCS; 2019-05-04)
DX: M97.8XXA Periprosthetic fracture around other internal prosthetic joint, initial encounter (principal); L89.323 Pressure ulcer of left buttock, stage 3; N18.6 End stage renal disease; E43 Unspecified severe protein-calorie malnutrition; G92 Toxic encephalopathy; R65.21 Severe sepsis with septic shock; J96.02 Acute respiratory failure with hypercapnia; J96.01 Acute respiratory failure with hypoxia; A41.50 Gram-negative sepsis, unspecified; K55.9 Vascular disorder of intestine, unspecified; M80.851A Other osteoporosis with current pathological fracture, right femur, initial encounter for fracture; I13.2 Hypertensive heart and chronic kidney disease with heart failure and with stage 5 chronic kidney disease, or end stage renal disease; E87.1 Hypo-osmolality and hyponatremia; N39.0 Urinary tract infection, site not specified; E87.2 Acidosis; J90 Pleural effusion, not elsewhere classified; C90.00 Multiple myeloma not having achieved remission; K56.609 Unspecified intestinal obstruction, unspecified as to partial versus complete obstruction; M84.551A Pathological fracture in neoplastic disease, right femur, initial encounter for fracture; W18.30XA Fall on same level, unspecified, initial encounter; Y92.531 Health care provider office as the place of occurrence of the external cause; E11.22 Type 2 diabetes mellitus with diabetic chronic kidney disease; I50.9 Heart failure, unspecified; I25.2 Old myocardial infarction; Z99.2 Dependence on renal dialysis; Z96.651 Presence of right artificial knee joint; Z95.2 Presence of prosthetic heart valve; Z83.3 Family history of diabetes mellitus; Z82.49 Family history of ischemic heart disease and other diseases of the circulatory system; Z81.8 Family history of other mental and behavioral disorders; Z80.7 Family history of other malignant neoplasms of lymphoid, hematopoietic and related tissues; Z79.82 Long term (current) use of aspirin; Z79.4 Long term (current) use of insulin; Z90.49 Acquired absence of other specified parts of digestive tract; Z79.51 Long term (current) use of inhaled steroids; Z79.899 Other long term (current) drug therapy; M16.11 Unilateral primary osteoarthritis, right hip; K21.0 Gastro-esophageal reflux disease with esophagitis; I25.10 Atherosclerotic heart disease of native coronary artery without angina pectoris; E78.5 Hyperlipidemia, unspecified; E83.51 Hypocalcemia; E87.6 Hypokalemia; F32.9 Major depressive disorder, single episode, unspecified; D50.9 Iron deficiency anemia, unspecified; M85.9 Disorder of bone density and structure, unspecified; E11.65 Type 2 diabetes mellitus with hyperglycemia; I35.0 Nonrheumatic aortic (valve) stenosis; D63.1 Anemia in chronic kidney disease; L89.159 Pressure ulcer of sacral region, unspecified stage; L98.9 Disorder of the skin and subcutaneous tissue, unspecified; R21 Rash and other nonspecific skin eruption; M19.90 Unspecified osteoarthritis, unspecified site; K29.70 Gastritis, unspecified, without bleeding; M89.8X9 Other specified disorders of bone, unspecified site; B96.20 Unspecified Escherichia coli [E. coli] as the cause of diseases classified elsewhere
CPT/HCPCS: 31720; 36415; 36600; 71045-TC; 73552; 74018; 80048-TC; 80053-TC; 80061-TC; 80076-TC; 81000-TC; 82248-TC; 82272-TC; 82533; 82728-TC; 82803-TC; 82962-TC; 83540-TC; 83605-TC; 83735-TC; 84100-TC; 84443-TC; 85025-TC; 85027-TC; 85385-TC; 85610-TC; 85730-TC; 86706; 86850-TC; 86921-TC; 87040-TC; 87081-TC; 87086-TC; 87186-TC; 87340; 90935-TC; 94002-TC; 94799-TC; A4216; A6248; A6253; A9563; C1713; C1751; C9113; G0378; J0690; J0696; J0885; J1170; J1265; J1450; J1644; J1720; J2185; J2250; J2270; J2370; J2405; J3010; J3490; J7030; J7040; J7042; J7050; J7060; J7120; L1830; P9016-BL